=== PATIENT | male | born 1980 | race Caucasian/White ===

== ENCOUNTER 2018-01-25 10:35 | Emergency (ER) | payer MEDICAID ==
[~2018-01-25] VITALS: Ht 188 cm; Wt 122.7 kg
[~2018-01-25 10:35] MED LIST: AMIT-189 PO; BISM-64 PO; COROTSUS OT; DICY10CA88 PO; DIPH-186 PO; FLUT16SP10; METO-292 PO; METO5TAB98 PO; OMEP20TA5 PO; ONDA4TAB12 PO; ONDA4TAB6 PO; ONDA4TAB9 PO; ONDA8TAB6 PO; ONDA8TAB9 PO; PANT-47 PO; PANT20TA2 PO; POLY119P2 PO; POLY255P2 PO; SUCR1ORA2 PO
[2018-01-25] MEDS ORDERED: diphenhydrAMINE 50 mg/ml inj IV ONE (11:40)
[2018-01-25] MEDS ORDERED: ketorolac trometh. 30mg/ml inj. IV ONE (11:40)
[2018-01-25] MEDS ORDERED: ondansetron/PF 4mg/2ml inj IV ONE (11:40)
[2018-01-25] MEDS ORDERED: normal saline 1000ML IV soln IVB ONE (11:40)
[2018-01-25] MEDS ORDERED: haloperidol lactate 5mg/ml inj IM ONE (11:40)
[2018-01-25 12:04] LABS: CLARITY,URINE CLEAR (Clear); COLOR,URINE YELLOW (Yellow); GLUCOSE, URINE NEGATIVE (Neg); KETONES,URINE NEGATIVE (Neg); LEUKOCYTE ESTERASE ,URINE NEGATIVE (Neg); NITRITES, URINE NEGATIVE (Neg); OCCULT BLOOD,URINE NEGATIVE (Neg); PROTEIN,URINE NEGATIVE (Neg); UROBILINOGEN,URINE 0.2 E.U/dL (0.2-1.0)
[2018-01-25 12:07] LABS: UA COLLECTION TYPE CLN CATCH MIDSTREAM
[2018-01-25 12:08] LABS: BASOPHILS % (AUTO) 0.3 % (0-1); EOSINOPHILS # (AUTO) 0.2 X10'3 (0-0.9); EOSINOPHILS % (AUTO) 1.5 % (0-6); HEMATOCRIT 47.1 % (42.0-52.0); HEMOGLOBIN 16.3 g/dl (14.0-17.9); LYMPHOCYTES % (AUTO) 8.8 % (21-51); MEAN CORPUSCULAR HGB CONC 34.5 % (33.0-36.5); MEAN CORPUSCULAR VOLUME 89.8 FL (78-98); MEAN PLATELET VOLUME 9.7 FL (7.4-10.4); MONOCYTES # (AUTO) 0.4 X10'3 (0-0.9); MONOCYTES % (AUTO) 3.2 % (2-12); NEUTROPHILS % (AUTO) 86.2 % (42-75); PLATELET COUNT 209 X10'3 (140-440); RED BLOOD COUNT 5.25 X10'6 (4.70-6.10); RED CELL DISTRIBUTION WIDTH 12.6 % (11.5-14.5); WHITE BLOOD COUNT 11.6 X10'3 (4.5-11.0)
[2018-01-25 12:41] LABS: ALANINE AMINOTRANSFERASE 24 U/L (12-78); ALBUMIN 4.3 G/DL (3.4-5.0); ALBUMIN/GLOBULIN RATIO 1.3 (1.1-1.5); ALKALINE PHOSPHATASE 68 IU/L (46-116); ANION GAP 14 (8-16); ASPARTATE AMINO TRANSFERASE 12 U/L (10-37); BILIRUBIN,TOTAL 0.4 MG/DL (0.1-1.0); BLOOD UREA NITROGEN 10 MG/DL (7-18); BUN/CREATININE RATIO 9.1 (5.4-32.0); CALCIUM 8.8 MG/DL (8.5-10.1); CHLORIDE 106 MMOL/L (99-107); GLUCOSE 128 MG/DL (70-104); LIPASE 757 U/L (73-393); SODIUM 141 MMOL/L (135-145); TOTAL CARBON DIOXIDE 21.5 MMOL/L (24-32); TOTAL PROTEIN 7.5 G/DL (6.4-8.2); eGFR 75 ML/MIN
[2018-01-25 12:47] LABS: POTASSIUM 3.9 MMOL/L (3.5-5.1)
[2018-01-25 12:50] LABS: PROTHROMBIN TIME 10.3 SECONDS (9.0-12.0)
[2018-01-25] MEDS ORDERED: ONDA8TAB9 PO (12:52)
[2018-01-25] MEDS ORDERED: morphine 4 MG/ML inj SYRINge IV ONE (12:55)
[2018-01-25 13:31] VITALS: BP 131/69
[2018-01-29] MEDS ORDERED: MELO-100 PO (13:39)
== END 2018-01-25 13:34 | disposition home or self-care (01) ==
LOC: ER 10:35
DX: R11.2 Nausea with vomiting, unspecified (principal); R19.7 Diarrhea, unspecified; R10.84 Generalized abdominal pain; E78.00 Pure hypercholesterolemia, unspecified; K21.9 Gastro-esophageal reflux disease without esophagitis; G89.29 Other chronic pain; F12.90 Cannabis use, unspecified, uncomplicated; Z56.0 Unemployment, unspecified; Z88.8 Allergy status to other drugs, medicaments and biological substances
CPT/HCPCS: 36415; 80053; 81003; 83690; 85025; 85610; 93005; 96361; 96374; 96375; 99285; J1200; J1885; J2270; J2405; J1630

== ENCOUNTER 2018-07-07 06:07 | Emergency (ER) | payer MEDICAID ==
[~2018-07-07] VITALS: Ht 188 cm; Wt 93.5 kg
[~2018-07-07 06:07] MED LIST changes: +MELO-100 PO; +POLY255P19 PO; -POLY255P2 PO
[2018-07-07] MEDS ORDERED: amoxicillin 250mg capsule PO ONE (06:50)
[2018-07-07] MEDS ORDERED: ketorolac trometh inj. 60 MG/2 ML VIAL IM ONE (06:50)
[2018-07-07] MEDS ORDERED: AMOX-101 PO (07:11)
[2018-07-07 07:17] VITALS: BP 136/65
== END 2018-07-07 07:20 | disposition home or self-care (01) ==
LOC: ER 06:07
DX: K02.9 Dental caries, unspecified (principal); E78.00 Pure hypercholesterolemia, unspecified; K21.9 Gastro-esophageal reflux disease without esophagitis; G89.29 Other chronic pain; F12.90 Cannabis use, unspecified, uncomplicated; Z98.890 Other specified postprocedural states; Z56.0 Unemployment, unspecified; Z88.0 Allergy status to penicillin; Z88.8 Allergy status to other drugs, medicaments and biological substances; Z79.899 Other long term (current) drug therapy
CPT/HCPCS: 96372; 99283; J1885

== ENCOUNTER 2018-08-05 08:39 | Emergency (ER) | payer MEDICAID ==
[~2018-08-05] VITALS: Ht 188 cm; Wt 77.3 kg
[~2018-08-05 08:39] MED LIST changes: +AMOX-101 PO
[2018-08-05] MEDS ORDERED: ketorolac tromethamine 15mg/ml inj. IV ONE (08:55)
[2018-08-05] MEDS ORDERED: metoclopramide 5 mg/ml inj IV ONE (08:55)
[2018-08-05] MEDS ORDERED: normal saline 1000ML IV soln IVB ONE ×2 (08:55)
[2018-08-05] MEDS ORDERED: diphenhydrAMINE 50 mg/ml inj IV ONE (08:55)
[2018-08-05] MEDS ORDERED: LORazepam 2 mg/ml vial IV ONE (08:55)
[2018-08-05 09:18] LABS: BASOPHILS % (AUTO) 0.3 % (0-1); EOSINOPHILS # (AUTO) 0.2 X10'3 (0-0.9); EOSINOPHILS % (AUTO) 2.6 % (0-6); HEMATOCRIT 49.5 % (42.0-52.0); HEMOGLOBIN 17.1 g/dl (14.0-17.9); LYMPHOCYTES # (AUTO) 1.9 X10'3 (1.1-4.8); LYMPHOCYTES % (AUTO) 30.2 % (21-51); MEAN CORPUSCULAR HEMOGLOBIN 30.9 PG (27.0-31.0); MEAN CORPUSCULAR HGB CONC 34.6 g/dL (33.0-36.5); MEAN CORPUSCULAR VOLUME 89.3 FL (78-98); MEAN PLATELET VOLUME 9.3 FL (7.4-10.4); MONOCYTES # (AUTO) 0.5 X10'3 (0-0.9); MONOCYTES % (AUTO) 7.1 % (2-12); NEUTROPHILS # (AUTO) 3.8 X10'3 (1.8-7.7); NEUTROPHILS % (AUTO) 59.8 % (42-75); PLATELET COUNT 184 X10'3 (140-440); RED BLOOD COUNT 5.54 X10'6 (4.70-6.10); WHITE BLOOD COUNT 6.3 X10'3 (4.5-11.0)
[2018-08-05] MEDS: HYDROmorphone inj. 0.5 MG/0.5 ML DISP.SYRIN IV PRN ×3 (09:18→10:04)
[2018-08-05 09:27] LABS: ALANINE AMINOTRANSFERASE 25 U/L (12-78); ALBUMIN 4.4 G/DL (3.4-5.0); ALBUMIN/GLOBULIN RATIO 1.2 (1.1-1.5); ALKALINE PHOSPHATASE 76 IU/L (46-116); ANION GAP 11 (8-16); ASPARTATE AMINO TRANSFERASE 16 U/L (10-37); BILIRUBIN,TOTAL 0.7 MG/DL (0.1-1.0); BLOOD UREA NITROGEN 15 MG/DL (7-18); CHLORIDE 103 MMOL/L (99-107); CREATININE 1.07 MG/DL (0.60-1.10); GLUCOSE 104 MG/DL (70-104); LIPASE 410 U/L (73-393); SODIUM 138 MMOL/L (135-145); TOTAL CARBON DIOXIDE 23.6 MMOL/L (24-32); eGFR 77 ML/MIN
[2018-08-05] MEDS ORDERED: ONDA4TAB12 PO (09:43)
[2018-08-05 10:31] LABS: CLARITY,URINE CLEAR (Clear); COLOR,URINE YELLOW (Yellow); GLUCOSE, URINE NEGATIVE (Neg); KETONES,URINE NEGATIVE (Neg); LEUKOCYTE ESTERASE ,URINE NEGATIVE (Neg); NITRITES, URINE NEGATIVE (Neg); OCCULT BLOOD,URINE NEGATIVE (Neg); PROTEIN,URINE NEGATIVE (Neg)
[2018-08-05 10:34] LABS: UA COLLECTION TYPE URINAL
[2018-08-05 10:38] VITALS: BP 146/79
--- NOTE | 2018-08-05 13:45 | NUR ---
NOTED THAT EMAR APPLICATION DOES NOT HAVE A "uNDO" OPTION FOR THIS NURSE AND ONLY 2 DOSES OF DILAUDID WERE GIVEN BUT RECORD SHOWS 3 WERE GIVEN, ALTERNATE NURSE AUDREY Aguilar RN AT MY SIDE TO VERIFY AND PHARMACY CALLED WHO FOUND THE EMAR ERROR AND TODD IN PHARMACY WAS TO CORRECT THE DOSING ON THE EMAR AND TRANSFERRED TO IT WHO WAS TO CORRECT THE EMAR APPLICATION. ALSO NOTED THAT HAD A BLACK EYE AND OLD LACERATION/SCAR ON LIP SO PULLED HER INTO A ROOM ALONE WITH HER 1 YEAR OLD AND ASKED HER WHERE THE EYE AND LIP INJURY CAME FROM AND SHE STATED THAT THEY HAD TO MOVE AND A BOX WAS DROPPED ON HER EYE, STATED THIS TWICE, AND I ASKED HER MULTIPLE TIMES IF SHE FELT SAFE AT [facility] AND SHE SAID SHE FELT SAFE AT HOME AND THAT HER AND HER HAD 5 CHILDREN. CHARGE NURSE/AUDREY JULIAN
== END 2018-08-05 10:40 | disposition home or self-care (01) ==
LOC: ER 08:40
DX: R10.13 Epigastric pain (principal); N50.89 Other specified disorders of the male genital organs; R11.10 Vomiting, unspecified; R19.7 Diarrhea, unspecified; E78.00 Pure hypercholesterolemia, unspecified; K21.9 Gastro-esophageal reflux disease without esophagitis; G89.29 Other chronic pain; F12.90 Cannabis use, unspecified, uncomplicated; Z88.6 Allergy status to analgesic agent; Z88.8 Allergy status to other drugs, medicaments and biological substances; Z79.899 Other long term (current) drug therapy; Z56.0 Unemployment, unspecified
CPT/HCPCS: 36415; 76870; 80053; 81003; 83690; 85025; 85610; 96361; 96374; 96375; 96376; 99284; J1170; J1200; J1885; J2060; J2765; J7030

== ENCOUNTER 2019-04-01 03:05 | Emergency (ER) | payer MEDICAID ==
[~2019-04-01] VITALS: Ht 188 cm; Wt 118.2 kg
[~2019-04-01 03:05] MED LIST changes: -AMOX-101 PO
[2019-04-01] MEDS ORDERED: ketorolac trometh. 30mg/ml inj. IV ONE (03:10)
[2019-04-01] MEDS ORDERED: ondansetron/PF 4mg/2ml inj IV ONE (03:10)
[2019-04-01] MEDS ORDERED: normal saline 1000ML IV soln IVB ONE (03:10)
[2019-04-01] MEDS: morphine 4 MG/ML inj SYRINge IV PRN ×3 (03:23→05:02)
[2019-04-01 03:33] LABS: CLARITY,URINE CLEAR (Clear); COLOR,URINE YELLOW (Yellow); GLUCOSE, URINE NEGATIVE (Neg); KETONES,URINE NEGATIVE (Neg); LEUKOCYTE ESTERASE ,URINE NEGATIVE (Neg); NITRITES, URINE NEGATIVE (Neg); OCCULT BLOOD,URINE NEGATIVE (Neg); PH,URINE 6.5 (4.8-8.0); PROTEIN,URINE NEGATIVE (Neg); UA COLLECTION TYPE VOIDED; UROBILINOGEN,URINE 0.2 E.U/dL (0.2-1.0)
[2019-04-01 03:43] LABS: ALANINE AMINOTRANSFERASE 34 U/L (12-78); ALBUMIN 4.3 G/DL (3.4-5.0); ALBUMIN/GLOBULIN RATIO 1.3 (1.1-1.5); ALKALINE PHOSPHATASE 70 IU/L (46-116); ANION GAP 10 (8-16); ASPARTATE AMINO TRANSFERASE 18 U/L (10-37); BILIRUBIN,TOTAL 0.5 MG/DL (0.1-1.0); BLOOD UREA NITROGEN 11 MG/DL (7-18); BUN/CREATININE RATIO 10.6 (5.4-32.0); CALCIUM 8.8 MG/DL (8.5-10.1); CHLORIDE 107 MMOL/L (99-107); CREATININE 1.04 MG/DL (0.60-1.10); GLUCOSE 119 MG/DL (70-104); LIPASE 224 U/L (73-393); POTASSIUM 4.1 MMOL/L (3.5-5.1); SODIUM 142 MMOL/L (135-145); TOTAL CARBON DIOXIDE 24.6 MMOL/L (24-32); TOTAL PROTEIN 7.7 G/DL (6.4-8.2); eGFR 79 ML/MIN
[2019-04-01 03:46] LABS: BASOPHILS # (AUTO) 0.1 X10'3 (0-0.2); BASOPHILS % (AUTO) 0.8 % (0-1); EOSINOPHILS # (AUTO) 0.3 X10'3 (0-0.9); EOSINOPHILS % (AUTO) 2.8 % (0-6); HEMATOCRIT 47.5 % (42.0-52.0); HEMOGLOBIN 16.8 g/dl (14.0-17.9); LYMPHOCYTES # (AUTO) 1.9 X10'3 (1.1-4.8); LYMPHOCYTES % (AUTO) 21.2 % (21-51); MEAN CORPUSCULAR HEMOGLOBIN 31.1 PG (27.0-31.0); MEAN CORPUSCULAR HGB CONC 35.3 g/dL (33.0-36.5); MEAN CORPUSCULAR VOLUME 88.1 FL (78-98); MEAN PLATELET VOLUME 9.8 FL (7.4-10.4); MONOCYTES # (AUTO) 0.5 X10'3 (0-0.9); MONOCYTES % (AUTO) 5.8 % (2-12); NEUTROPHILS # (AUTO) 6.2 X10'3 (1.8-7.7); NEUTROPHILS % (AUTO) 69.4 % (42-75); PLATELET COUNT 199 X10'3 (140-440); RED BLOOD COUNT 5.39 X10'6 (4.70-6.10); RED CELL DISTRIBUTION WIDTH 13.4 % (11.5-14.5)
[2019-04-01] MEDS ORDERED: mag hydrox/Alum hydrox/simeth 30ml oral suspension PO ONE (04:50)
[2019-04-01] MEDS ORDERED: sucralfate 1gm/10ml UD suspension PO STA (04:50)
[2019-04-01] MEDS ORDERED: LIDOcaine Viscous 15ml cup MM ONE (04:50)
[2019-04-01 05:11] VITALS: BP 151/100
== END 2019-04-01 05:12 | disposition home or self-care (01) ==
LOC: ER 03:06
DX: R10.9 Unspecified abdominal pain (principal); R11.2 Nausea with vomiting, unspecified; R19.7 Diarrhea, unspecified; E78.00 Pure hypercholesterolemia, unspecified; K21.9 Gastro-esophageal reflux disease without esophagitis; G89.29 Other chronic pain; F12.90 Cannabis use, unspecified, uncomplicated; Z56.0 Unemployment, unspecified; Z88.6 Allergy status to analgesic agent; Z79.899 Other long term (current) drug therapy; Z88.8 Allergy status to other drugs, medicaments and biological substances
CPT/HCPCS: 36415; 80053; 81003; 83690; 85025; 96361; 96374; 96375; 96376; 99283; J1885; J2270; J2405; J7030

== ENCOUNTER 2019-04-25 10:44 | Emergency (ER) | payer MEDICAID ==
[~2019-04-25] VITALS: Ht 188 cm; Wt 126.5 kg
[2019-04-25 11:25] LABS: BASOPHILS # (AUTO) 0.1 X10'3 (0-0.2); BASOPHILS % (AUTO) 0.6 % (0-1); EOSINOPHILS # (AUTO) 0.2 X10'3 (0-0.9); EOSINOPHILS % (AUTO) 2.1 % (0-6); HEMATOCRIT 47.9 % (42.0-52.0); HEMOGLOBIN 16.9 g/dl (14.0-17.9); LYMPHOCYTES # (AUTO) 1.8 X10'3 (1.1-4.8); LYMPHOCYTES % (AUTO) 18.2 % (21-51); MEAN CORPUSCULAR HGB CONC 35.2 g/dL (33.0-36.5); MEAN CORPUSCULAR VOLUME 88.1 FL (78-98); MEAN PLATELET VOLUME 8.8 FL (7.4-10.4); MONOCYTES # (AUTO) 0.5 X10'3 (0-0.9); MONOCYTES % (AUTO) 5.4 % (2-12); NEUTROPHILS # (AUTO) 7.2 X10'3 (1.8-7.7); NEUTROPHILS % (AUTO) 73.7 % (42-75); PLATELET COUNT 225 X10'3 (140-440); RED BLOOD COUNT 5.44 X10'6 (4.70-6.10); RED CELL DISTRIBUTION WIDTH 13.7 % (11.5-14.5); WHITE BLOOD COUNT 9.8 X10'3 (4.5-11.0)
[2019-04-25 11:29] LABS: CLARITY,URINE CLEAR (Clear); COLOR,URINE YELLOW (Yellow); GLUCOSE, URINE NEGATIVE (Neg); KETONES,URINE NEGATIVE (Neg); LEUKOCYTE ESTERASE ,URINE NEGATIVE (Neg); NITRITES, URINE NEGATIVE (Neg); OCCULT BLOOD,URINE NEGATIVE (Neg); PROTEIN,URINE NEGATIVE (Neg); UROBILINOGEN,URINE 0.2 E.U/dL (0.2-1.0)
[2019-04-25 11:31] LABS: UA COLLECTION TYPE CLN CATCH MIDSTREAM
[2019-04-25 11:39] LABS: ALANINE AMINOTRANSFERASE 17 U/L (12-78); ALBUMIN 4.4 G/DL (3.4-5.0); ALBUMIN/GLOBULIN RATIO 1.3 (1.1-1.5); ALKALINE PHOSPHATASE 70 IU/L (46-116); AMYLASE 20 U/L (25-115); ANION GAP 10 (8-16); ASPARTATE AMINO TRANSFERASE 11 U/L (10-37); BILIRUBIN,TOTAL 0.4 MG/DL (0.1-1.0); BLOOD UREA NITROGEN 14 MG/DL (7-18); BUN/CREATININE RATIO 12.3 (5.4-32.0); CALCIUM 9.3 MG/DL (8.5-10.1); CHLORIDE 105 MMOL/L (99-107); CREATININE 1.14 MG/DL (0.60-1.10); GLUCOSE 116 MG/DL (70-104); LIPASE 288 U/L (73-393); POTASSIUM 4.1 MMOL/L (3.5-5.1); SODIUM 140 MMOL/L (135-145); TOTAL CARBON DIOXIDE 24.7 MMOL/L (24-32); TOTAL PROTEIN 7.8 G/DL (6.4-8.2); eGFR 71 ML/MIN
[2019-04-25] MEDS ORDERED: normal saline 1000ML IV soln IVB ONE (11:45)
[2019-04-25] MEDS ORDERED: famotidine/PF 10 mg/ml inj IV ONE (11:45)
[2019-04-25] MEDS ORDERED: pantoprazole 40 MG vial IV ONE (11:45)
[2019-04-25] MEDS ORDERED: ondansetron/PF 4mg/2ml inj IV ONE ×2 (11:45→14:20)
[2019-04-25] MEDS: morphine 4 MG/ML inj SYRINge IV PRN ×3 (12:19→14:46)
--- NOTE | 2019-04-25 12:38 | NUR ---
Patient to CT
--- NOTE | 2019-04-25 13:49 | NUR ---
Discussed pt's c/o pain w/ mary mujica; no new orders received @ this time.
[2019-04-25] MEDS ORDERED: ONDA4TAB6 PO (14:16)
[2019-04-25] MEDS ORDERED: HYDR-3965 PO (14:16)
[2019-04-25] MEDS ORDERED: morphine 4 MG/ML inj SYRINge IV ONE (14:20)
[2019-04-25 15:15] VITALS: BP 136/103
== END 2019-04-25 15:14 | disposition home or self-care (01) ==
LOC: ER 10:44
DX: D35.02 Benign neoplasm of left adrenal gland (principal); R10.31 Right lower quadrant pain; R10.32 Left lower quadrant pain; E78.00 Pure hypercholesterolemia, unspecified; K21.9 Gastro-esophageal reflux disease without esophagitis; G89.29 Other chronic pain; F12.90 Cannabis use, unspecified, uncomplicated; Z56.0 Unemployment, unspecified; Z88.6 Allergy status to analgesic agent; Z88.8 Allergy status to other drugs, medicaments and biological substances; Z79.899 Other long term (current) drug therapy
CPT/HCPCS: 36415; 74176; 80053; 81003; 82150; 83605; 83690; 85025; 96374; 96375; 96376; 99284; C9113; J2270; J2405; J3490; J7030

== ENCOUNTER 2019-05-04 15:55 | Emergency (ER) | payer MEDICAID ==
[~2019-05-04] VITALS: Ht 188 cm; Wt 124.0 kg
[~2019-05-04 15:55] MED LIST changes: -AMIT-189 PO; +HYDR-3965 PO
[2019-05-04] MEDS ORDERED: metoclopramide 5 mg/ml inj IV ONE (17:00)
[2019-05-04] MEDS ORDERED: normal saline 1000ML IV soln IVB ONE ×2 (17:00)
[2019-05-04] MEDS ORDERED: LORazepam 2 mg/ml vial IV ONE (17:00)
[2019-05-04] MEDS ORDERED: pantoprazole 40 MG vial IV ONE (17:00)
[2019-05-04 17:24] LABS: BASOPHILS % (AUTO) 0.3 % (0-1); EOSINOPHILS # (AUTO) 0.1 X10'3 (0-0.9); EOSINOPHILS % (AUTO) 0.7 % (0-6); HEMATOCRIT 50.6 % (42.0-52.0); HEMOGLOBIN 17.5 g/dl (14.0-17.9); LYMPHOCYTES # (AUTO) 1.3 X10'3 (1.1-4.8); LYMPHOCYTES % (AUTO) 9.7 % (21-51); MEAN CORPUSCULAR HEMOGLOBIN 30.5 PG (27.0-31.0); MEAN CORPUSCULAR HGB CONC 34.7 g/dL (33.0-36.5); MEAN CORPUSCULAR VOLUME 87.9 FL (78-98); MEAN PLATELET VOLUME 10.2 FL (7.4-10.4); MONOCYTES # (AUTO) 0.6 X10'3 (0-0.9); MONOCYTES % (AUTO) 4.3 % (2-12); NEUTROPHILS # (AUTO) 11.6 X10'3 (1.8-7.7); PLATELET COUNT 227 X10'3 (140-440); RED BLOOD COUNT 5.76 X10'6 (4.70-6.10); RED CELL DISTRIBUTION WIDTH 13.7 % (11.5-14.5); WHITE BLOOD COUNT 13.6 X10'3 (4.5-11.0)
[2019-05-04 17:32] LABS: ALANINE AMINOTRANSFERASE 32 U/L (12-78); ALBUMIN 4.7 G/DL (3.4-5.0); ALBUMIN/GLOBULIN RATIO 1.4 (1.1-1.5); ALKALINE PHOSPHATASE 64 IU/L (46-116); ANION GAP 11 (8-16); ASPARTATE AMINO TRANSFERASE 19 U/L (10-37); BILIRUBIN,TOTAL 0.7 MG/DL (0.1-1.0); BLOOD UREA NITROGEN 14 MG/DL (7-18); CHLORIDE 104 MMOL/L (99-107); CREATININE 1.08 MG/DL (0.60-1.10); GLUCOSE 115 MG/DL (70-104); LIPASE 398 U/L (73-393); POTASSIUM 4.1 MMOL/L (3.5-5.1); SODIUM 139 MMOL/L (135-145); TOTAL CARBON DIOXIDE 23.6 MMOL/L (24-32); eGFR 75 ML/MIN
[2019-05-04] MEDS ORDERED: morphine 4 MG/ML inj SYRINge IV ONE (18:40)
[2019-05-04] MEDS ORDERED: METO-292 PO (18:42)
[2019-05-04] MEDS ORDERED: HYDR-3965 PO (18:42)
[2019-05-04 19:16] VITALS: BP 124/63
== END 2019-05-04 19:12 | disposition home or self-care (01) ==
LOC: ER 15:55
DX: K85.90 Acute pancreatitis without necrosis or infection, unspecified (principal); R11.2 Nausea with vomiting, unspecified; R10.13 Epigastric pain; E78.00 Pure hypercholesterolemia, unspecified; K21.9 Gastro-esophageal reflux disease without esophagitis; G89.29 Other chronic pain; F12.90 Cannabis use, unspecified, uncomplicated; Z56.0 Unemployment, unspecified; Z88.6 Allergy status to analgesic agent; Z88.8 Allergy status to other drugs, medicaments and biological substances; Z79.899 Other long term (current) drug therapy
CPT/HCPCS: 36415; 80053; 83690; 85025; 96361; 96374; 96375; 99284; C9113; J2060; J2270; J7030

== ENCOUNTER 2019-05-21 08:15 | Emergency (ER) | payer MEDICAID ==
[~2019-05-21] VITALS: Ht 188 cm; Wt 122.7 kg
[2019-05-21] MEDS ORDERED: normal saline 1000ML IV soln IVB ONE (08:45)
[2019-05-21] MEDS ORDERED: insulin regular, human 10 units/0.1 ml syringe SQ ONE (08:45)
[2019-05-21] MEDS ORDERED: insulin regular, human U-100 3ml vial - multi-dose SQ ONE (08:50)
[2019-05-21] MEDS ORDERED: pantoprazole 40 MG vial IV ONE (09:15)
[2019-05-21] MEDS ORDERED: morphine 4 MG/ML inj SYRINge IV ONE (09:15)
[2019-05-21] MEDS ORDERED: famotidine/PF 10 mg/ml inj IV ONE (09:15)
[2019-05-21] MEDS ORDERED: ondansetron/PF 4mg/2ml inj IV ONE (09:15)
[2019-05-21 09:28] LABS: CLARITY,URINE CLEAR (Clear); COLOR,URINE YELLOW (Yellow); GLUCOSE, URINE NEGATIVE (Neg); KETONES,URINE NEGATIVE (Neg); LEUKOCYTE ESTERASE ,URINE NEGATIVE (Neg); NITRITES, URINE NEGATIVE (Neg); OCCULT BLOOD,URINE NEGATIVE (Neg); PH,URINE 6.5 (4.8-8.0); PROTEIN,URINE NEGATIVE (Neg); UROBILINOGEN,URINE 0.2 E.U/dL (0.2-1.0)
[2019-05-21 09:29] LABS: BASOPHILS % (AUTO) 0.3 % (0-1); EOSINOPHILS % (AUTO) 0.4 % (0-6); HEMATOCRIT 45.5 % (42.0-52.0); HEMOGLOBIN 16.1 g/dl (14.0-17.9); LYMPHOCYTES # (AUTO) 1.2 X10'3 (1.1-4.8); MEAN CORPUSCULAR HEMOGLOBIN 30.9 PG (27.0-31.0); MEAN CORPUSCULAR HGB CONC 35.3 g/dL (33.0-36.5); MEAN CORPUSCULAR VOLUME 87.5 FL (78-98); MEAN PLATELET VOLUME 9.3 FL (7.4-10.4); MONOCYTES # (AUTO) 0.4 X10'3 (0-0.9); NEUTROPHILS # (AUTO) 8.3 X10'3 (1.8-7.7); NEUTROPHILS % (AUTO) 83.3 % (42-75); PLATELET COUNT 193 X10'3 (140-440); RED CELL DISTRIBUTION WIDTH 13.6 % (11.5-14.5)
[2019-05-21 09:32] LABS: UA COLLECTION TYPE URINAL
[2019-05-21 09:47] LABS: ALANINE AMINOTRANSFERASE 23 U/L (12-78); ALBUMIN/GLOBULIN RATIO 1.3 (1.1-1.5); ALKALINE PHOSPHATASE 57 IU/L (46-116); ANION GAP 9 (8-16); ASPARTATE AMINO TRANSFERASE 15 U/L (10-37); BILIRUBIN,TOTAL 0.5 MG/DL (0.1-1.0); BLOOD UREA NITROGEN 11 MG/DL (7-18); BUN/CREATININE RATIO 11.6 (5.4-32.0); CALCIUM 8.6 MG/DL (8.5-10.1); CHLORIDE 109 MMOL/L (99-107); CREATININE 0.95 MG/DL (0.60-1.10); GLUCOSE 108 MG/DL (70-104); LIPASE 216 U/L (73-393); POTASSIUM 3.8 MMOL/L (3.5-5.1); SODIUM 140 MMOL/L (135-145); TOTAL PROTEIN 7.2 G/DL (6.4-8.2); eGFR 87 ML/MIN
--- NOTE | 2019-05-21 10:03 | NUR ---
BREAKING PRIMARY RN, LAB AND ANOTHER RN AT BEDSIDE, STARTING A LINE AND COLLECTING LABS
[2019-05-21] MEDS ORDERED: HYDROcodone/acetaminophen 5mg/325mg tablet PO ONE (10:10)
[2019-05-21 10:31] VITALS: BP 119/60
== END 2019-05-21 10:48 | disposition home or self-care (01) ==
LOC: ER 08:15
DX: R10.12 Left upper quadrant pain (principal); R10.32 Left lower quadrant pain; R11.2 Nausea with vomiting, unspecified; R19.7 Diarrhea, unspecified; E78.00 Pure hypercholesterolemia, unspecified; K21.9 Gastro-esophageal reflux disease without esophagitis; G89.29 Other chronic pain; F41.9 Anxiety disorder, unspecified; F12.90 Cannabis use, unspecified, uncomplicated; Z98.890 Other specified postprocedural states; Z56.0 Unemployment, unspecified; Z88.5 Allergy status to narcotic agent; Z88.8 Allergy status to other drugs, medicaments and biological substances; Z79.899 Other long term (current) drug therapy
CPT/HCPCS: 36415; 80053; 81003; 83690; 85025; 96361; 96374; 96375; 99284; C9113; J2270; J2405; J3490; J7030; J1815

== ENCOUNTER 2019-05-25 11:04 | Emergency (ER) | payer MEDICAID ==
[~2019-05-25] VITALS: Ht 188 cm; Wt 124.0 kg
[2019-05-25 11:37] LABS: BASOPHILS % (AUTO) 0.3 % (0-1); EOSINOPHILS % (AUTO) 0.3 % (0-6); HEMATOCRIT 47.6 % (42.0-52.0); HEMOGLOBIN 16.6 g/dl (14.0-17.9); LYMPHOCYTES % (AUTO) 10.3 % (21-51); MEAN CORPUSCULAR HEMOGLOBIN 30.9 PG (27.0-31.0); MEAN CORPUSCULAR VOLUME 88.5 FL (78-98); MEAN PLATELET VOLUME 9.1 FL (7.4-10.4); MONOCYTES # (AUTO) 0.4 X10'3 (0-0.9); NEUTROPHILS # (AUTO) 8.5 X10'3 (1.8-7.7); NEUTROPHILS % (AUTO) 85.1 % (42-75); PLATELET COUNT 216 X10'3 (140-440); RED BLOOD COUNT 5.38 X10'6 (4.70-6.10); RED CELL DISTRIBUTION WIDTH 13.4 % (11.5-14.5)
[2019-05-25 11:52] LABS: ALANINE AMINOTRANSFERASE 25 U/L (12-78); ALBUMIN 4.5 G/DL (3.4-5.0); ALBUMIN/GLOBULIN RATIO 1.4 (1.1-1.5); ALKALINE PHOSPHATASE 66 IU/L (46-116); AMYLASE 18 U/L (25-115); ANION GAP 12 (8-16); ASPARTATE AMINO TRANSFERASE 16 U/L (10-37); BILIRUBIN,TOTAL 0.5 MG/DL (0.1-1.0); BLOOD UREA NITROGEN 9 MG/DL (7-18); BUN/CREATININE RATIO 8.7 (5.4-32.0); CALCIUM 8.7 MG/DL (8.5-10.1); CHLORIDE 107 MMOL/L (99-107); CREATININE 1.04 MG/DL (0.60-1.10); GLUCOSE 117 MG/DL (70-104); LIPASE 229 U/L (73-393); SODIUM 141 MMOL/L (135-145); TOTAL CARBON DIOXIDE 21.8 MMOL/L (24-32); TOTAL PROTEIN 7.8 G/DL (6.4-8.2); eGFR 79 ML/MIN
[2019-05-25] MEDS ORDERED: haloperidol lactate 5mg/ml inj IM ONE (12:20)
[2019-05-25] MEDS ORDERED: famotidine/PF 10 mg/ml inj IV ONE (12:20)
[2019-05-25] MEDS ORDERED: normal saline 1000ML IV soln IVB ONE (12:20)
[2019-05-25] MEDS ORDERED: LORazepam 2 mg/ml vial IV ONE (12:20)
[2019-05-25] MEDS ORDERED: ketorolac trometh. 30mg/ml inj. IV ONE (12:20)
[2019-05-25 12:47] LABS: CLARITY,URINE CLEAR (Clear); COLOR,URINE YELLOW (Yellow); GLUCOSE, URINE NEGATIVE (Neg); KETONES,URINE NEGATIVE (Neg); LEUKOCYTE ESTERASE ,URINE NEGATIVE (Neg); NITRITES, URINE NEGATIVE (Neg); OCCULT BLOOD,URINE NEGATIVE (Neg); PROTEIN,URINE NEGATIVE (Neg); UA COLLECTION TYPE CLN CATCH MIDSTREAM; UROBILINOGEN,URINE 0.2 E.U/dL (0.2-1.0)
[2019-05-25 12:48] LABS: URINE AMPHETAMINE SCREEN NEGATIVE (Neg); URINE BARBITUATE SCREEN NEGATIVE (Neg); URINE BENZODIAZEPINES SCREEN NEGATIVE (Neg); URINE CANNABINOID SCREEN POSITIVE (Neg); URINE COCAINE SCREEN NEGATIVE (Neg); URINE METHADONE SCREEN NEGATIVE (Neg); URINE OPIATE SCREEN NEGATIVE (Neg); URINE PHENCYCLIDINE SCREEN NEGATIVE (Neg)
[2019-05-25] MEDS ORDERED: morphine 4 MG/ML inj SYRINge IV ONE (14:05)
[2019-05-25 14:59] VITALS: BP 137/89
== END 2019-05-25 14:50 | disposition home or self-care (01) ==
LOC: ER 11:04
DX: R10.32 Left lower quadrant pain (principal); G89.29 Other chronic pain; R11.2 Nausea with vomiting, unspecified; R06.02 Shortness of breath; E78.00 Pure hypercholesterolemia, unspecified; K21.9 Gastro-esophageal reflux disease without esophagitis; F41.9 Anxiety disorder, unspecified; F12.90 Cannabis use, unspecified, uncomplicated; Z56.0 Unemployment, unspecified; Z88.5 Allergy status to narcotic agent; Z88.8 Allergy status to other drugs, medicaments and biological substances; Z79.2 Long term (current) use of antibiotics; Z79.899 Other long term (current) drug therapy
CPT/HCPCS: 36415; 80053; 80305; 81003; 82150; 83690; 85025; 96361; 96372; 96374; 96375; 99284; J1630; J1885; J2060; J2270; J3490; J7030

== ENCOUNTER 2019-05-27 14:27 | Emergency (ER) | payer MEDICAID ==
[~2019-05-27] VITALS: Ht 188 cm; Wt 122.0 kg
[2019-05-27] MEDS ORDERED: famotidine/PF 10 mg/ml inj IV ONE (15:15)
[2019-05-27] MEDS ORDERED: normal saline 1000ML IV soln IVB ONE (15:15)
[2019-05-27 15:53] LABS: BASOPHILS % (AUTO) 0.1 % (0-1); EOSINOPHILS % (AUTO) 0.1 % (0-6); HEMOGLOBIN 16.4 g/dl (14.0-17.9); LYMPHOCYTES # (AUTO) 0.9 X10'3 (1.1-4.8); LYMPHOCYTES % (AUTO) 7.1 % (21-51); MEAN CORPUSCULAR HEMOGLOBIN 30.8 PG (27.0-31.0); MEAN CORPUSCULAR VOLUME 87.9 FL (78-98); MEAN PLATELET VOLUME 9.2 FL (7.4-10.4); MONOCYTES # (AUTO) 0.4 X10'3 (0-0.9); NEUTROPHILS # (AUTO) 11.3 X10'3 (1.8-7.7); NEUTROPHILS % (AUTO) 89.7 % (42-75); PLATELET COUNT 212 X10'3 (140-440); RED BLOOD COUNT 5.34 X10'6 (4.70-6.10); RED CELL DISTRIBUTION WIDTH 13.7 % (11.5-14.5); WHITE BLOOD COUNT 12.5 X10'3 (4.5-11.0)
[2019-05-27 15:54] LABS: ALANINE AMINOTRANSFERASE 28 U/L (12-78); ALBUMIN 4.6 G/DL (3.4-5.0); ALBUMIN/GLOBULIN RATIO 1.5 (1.1-1.5); ALKALINE PHOSPHATASE 66 IU/L (46-116); ANION GAP 11 (8-16); ASPARTATE AMINO TRANSFERASE 25 U/L (10-37); BILIRUBIN,TOTAL 0.8 MG/DL (0.1-1.0); BLOOD UREA NITROGEN 12 MG/DL (7-18); BUN/CREATININE RATIO 11.3 (5.4-32.0); CALCIUM 8.6 MG/DL (8.5-10.1); CHLORIDE 105 MMOL/L (99-107); CREATININE 1.06 MG/DL (0.60-1.10); GLUCOSE 105 MG/DL (70-104); LIPASE 180 U/L (73-393); POTASSIUM 4.2 MMOL/L (3.5-5.1); SODIUM 140 MMOL/L (135-145); TOTAL CARBON DIOXIDE 24.2 MMOL/L (24-32); TOTAL PROTEIN 7.7 G/DL (6.4-8.2); eGFR 77 ML/MIN
[2019-05-27 16:04] LABS: CLARITY,URINE CLEAR (Clear); COLOR,URINE YELLOW (Yellow); GLUCOSE, URINE NEGATIVE (Neg); KETONES,URINE 15 mg/dl (Neg); LEUKOCYTE ESTERASE ,URINE NEGATIVE (Neg); NITRITES, URINE NEGATIVE (Neg); OCCULT BLOOD,URINE NEGATIVE (Neg); PH,URINE 5.5 (4.8-8.0); PROTEIN,URINE NEGATIVE (Neg); UROBILINOGEN,URINE 0.2 E.U/dL (0.2-1.0)
[2019-05-27 16:05] LABS: UA COLLECTION TYPE VOIDED
[2019-05-27] MEDS ORDERED: ketorolac trometh. 30mg/ml inj. IV ONE (16:25)
[2019-05-27 16:38] LABS: ETHANOL < 0.010 GM/DL (0.0-0.010)
[2019-05-27] MEDS ORDERED: morphine 4 MG/ML inj SYRINge IV ONE (16:40)
[2019-05-27] MEDS ORDERED: iohexol 300mg/ml 100ml inj. ONE (17:01)
[2019-05-27 17:21] VITALS: BP 167/100
[2019-05-27] MEDS ORDERED: NAPR-56 PO (18:02)
== END 2019-05-27 18:11 | disposition home or self-care (01) ==
LOC: ER 14:27
DX: G89.29 Other chronic pain (principal); R10.84 Generalized abdominal pain; R11.2 Nausea with vomiting, unspecified; R19.7 Diarrhea, unspecified; E78.00 Pure hypercholesterolemia, unspecified; K21.9 Gastro-esophageal reflux disease without esophagitis; F41.9 Anxiety disorder, unspecified; F12.90 Cannabis use, unspecified, uncomplicated; Z98.890 Other specified postprocedural states; Z56.0 Unemployment, unspecified; Z88.5 Allergy status to narcotic agent; Z88.8 Allergy status to other drugs, medicaments and biological substances; Z79.2 Long term (current) use of antibiotics; Z79.899 Other long term (current) drug therapy
CPT/HCPCS: 36415; 74177; 80053; 80320; 81003; 83690; 85025; 96361; 96374; 96375; 99285; J1885; J2270; J3490; J7030; Q9967; 99284

== ENCOUNTER 2019-05-29 12:28 | Emergency (ER) | payer MEDICAID ==
[~2019-05-29] VITALS: Ht 188 cm; Wt 122.7 kg
[~2019-05-29 12:28] MED LIST changes: +NAPR-56 PO
[2019-05-29 12:33] VITALS: BP 146/70
[2019-05-29] MEDS ORDERED: acetaminophen 325mg tablet PO ONE (13:05)
[2019-05-29] MEDS ORDERED: ketorolac tromethamine 15mg/ml inj. IM ONE (13:05)
--- NOTE | 2019-05-29 13:19 | NUR ---
PT REFUSED ORDERED PAIN MEDICATIONS. PT STATED HE NEEDS A DRIP FOR THE PAIN. PT THEN REQUESTED TO BE TRANSFERED TO THE OTHER HOSPITAL.
--- NOTE | 2019-05-29 13:25 | NUR ---
PT WALKED OUT THE DOORS STATING HE DOESN'T MEAN TO BE RUDE BUT HIS PAIN NEEDS TAKEN CARE OF. MD AND CHARGE NURSE NOTIFIED.
== END 2019-05-29 13:47 | disposition left against medical advice (07) ==
LOC: ER 12:30
DX: G89.29 Other chronic pain (principal); R10.84 Generalized abdominal pain; R11.2 Nausea with vomiting, unspecified; R19.7 Diarrhea, unspecified; K21.9 Gastro-esophageal reflux disease without esophagitis; E78.00 Pure hypercholesterolemia, unspecified; F41.9 Anxiety disorder, unspecified; F12.90 Cannabis use, unspecified, uncomplicated; Z98.890 Other specified postprocedural states; Z56.0 Unemployment, unspecified; Z88.5 Allergy status to narcotic agent; Z88.8 Allergy status to other drugs, medicaments and biological substances; Z79.2 Long term (current) use of antibiotics; Z79.899 Other long term (current) drug therapy
CPT/HCPCS: 99283

== ENCOUNTER 2019-06-21 18:11 | Emergency (ER) | payer MEDICAID ==
[~2019-06-21] VITALS: Ht 188 cm; Wt 122.7 kg
[~2019-06-21 18:11] MED LIST changes: -HYDR-3965 PO
[2019-06-21 18:12] VITALS: BP 144/100
== END 2019-06-21 19:00 | disposition home or self-care (01) ==
LOC: ER 18:11
DX: J20.9 Acute bronchitis, unspecified (principal); E78.00 Pure hypercholesterolemia, unspecified; K21.9 Gastro-esophageal reflux disease without esophagitis; F41.9 Anxiety disorder, unspecified; G89.29 Other chronic pain; Z87.440 Personal history of urinary (tract) infections; Z56.0 Unemployment, unspecified; Z88.5 Allergy status to narcotic agent; Z88.8 Allergy status to other drugs, medicaments and biological substances; Z79.899 Other long term (current) drug therapy
CPT/HCPCS: 99281

== ENCOUNTER 2019-08-22 12:25 | Emergency (ER) | payer MEDICAID ==
[~2019-08-22] VITALS: Ht 188 cm; Wt 118.2 kg
[~2019-08-22 12:25] MED LIST changes: -NAPR-56 PO
[2019-08-22 12:50] LABS: BASOPHILS % (AUTO) 0.4 % (0-1); EOSINOPHILS # (AUTO) 0.1 X10'3 (0-0.9); EOSINOPHILS % (AUTO) 0.5 % (0-6); HEMATOCRIT 45.9 % (42.0-52.0); LYMPHOCYTES # (AUTO) 0.8 X10'3 (1.1-4.8); LYMPHOCYTES % (AUTO) 6.9 % (21-51); MEAN CORPUSCULAR HEMOGLOBIN 31.4 PG (27.0-31.0); MEAN CORPUSCULAR HGB CONC 34.8 g/dL (33.0-36.5); MEAN CORPUSCULAR VOLUME 90.3 FL (78-98); MEAN PLATELET VOLUME 8.8 FL (7.4-10.4); MONOCYTES # (AUTO) 0.4 X10'3 (0-0.9); MONOCYTES % (AUTO) 3.6 % (2-12); NEUTROPHILS # (AUTO) 10.8 X10'3 (1.8-7.7); NEUTROPHILS % (AUTO) 88.6 % (42-75); PLATELET COUNT 190 X10'3 (140-440); RED BLOOD COUNT 5.08 X10'6 (4.70-6.10); RED CELL DISTRIBUTION WIDTH 13.4 % (11.5-14.5); WHITE BLOOD COUNT 12.2 X10'3 (4.5-11.0)
[2019-08-22] MEDS ORDERED: ondansetron/PF 4mg/2ml inj IV ONE (13:00)
[2019-08-22] MEDS ORDERED: morphine 4 MG/ML inj SYRINge IV PRN (13:00)
[2019-08-22] MEDS ORDERED: normal saline 1000ML IV soln IVB ONE (13:00)
[2019-08-22 13:04] LABS: CLARITY,URINE CLEAR (Clear); COLOR,URINE YELLOW (Yellow); GLUCOSE, URINE NEGATIVE (Neg); KETONES,URINE NEGATIVE (Neg); LEUKOCYTE ESTERASE ,URINE NEGATIVE (Neg); NITRITES, URINE NEGATIVE (Neg); OCCULT BLOOD,URINE NEGATIVE (Neg); PH,URINE 6.5 (4.8-8.0); PROTEIN,URINE NEGATIVE (Neg); UROBILINOGEN,URINE 0.2 E.U/dL (0.2-1.0)
--- NOTE | 2019-08-22 13:05 | NUR ---
Spoke with Dr Wiggins regarding the Morphine order as pt received 10mg of Morphine from EMS. Dr Wiggins said to not give the medication at this time. Let pt know that we are not able to give him any more morphine at this time because he has already had so much.
[2019-08-22 13:08] LABS: UA COLLECTION TYPE VOIDED
[2019-08-22 13:09] LABS: ALANINE AMINOTRANSFERASE 31 U/L (12-78); ALBUMIN/GLOBULIN RATIO 1.3 (1.1-1.5); ALKALINE PHOSPHATASE 69 IU/L (46-116); ANION GAP 8 (8-16); ASPARTATE AMINO TRANSFERASE 16 U/L (10-37); BILIRUBIN,TOTAL 0.5 MG/DL (0.1-1.0); BLOOD UREA NITROGEN 11 MG/DL (7-18); BUN/CREATININE RATIO 10.9 (5.4-32.0); CALCIUM 8.5 MG/DL (8.5-10.1); CHLORIDE 108 MMOL/L (99-107); CREATININE 1.01 MG/DL (0.60-1.10); GLUCOSE 119 MG/DL (70-104); LIPASE 215 U/L (73-393); POTASSIUM 3.9 MMOL/L (3.5-5.1); SODIUM 140 MMOL/L (135-145); TOTAL CARBON DIOXIDE 24.4 MMOL/L (24-32); TOTAL PROTEIN 7.1 G/DL (6.4-8.2); eGFR 81 ML/MIN
[2019-08-22 14:04] VITALS: BP 139/58
== END 2019-08-22 14:02 | disposition home or self-care (01) ==
LOC: ER 12:25
DX: K52.9 Noninfective gastroenteritis and colitis, unspecified (principal); G89.29 Other chronic pain; R10.10 Upper abdominal pain, unspecified; E78.00 Pure hypercholesterolemia, unspecified; K21.9 Gastro-esophageal reflux disease without esophagitis; F41.9 Anxiety disorder, unspecified; F12.90 Cannabis use, unspecified, uncomplicated; Z98.890 Other specified postprocedural states; Z56.0 Unemployment, unspecified; Z88.5 Allergy status to narcotic agent; Z88.8 Allergy status to other drugs, medicaments and biological substances; Z79.2 Long term (current) use of antibiotics; Z79.899 Other long term (current) drug therapy
CPT/HCPCS: 36415; 80053; 81003; 83690; 85025; 96361; 96374; 99283; J2405; J7030

== ENCOUNTER 2019-08-23 11:00 | Emergency (ER) | payer MEDICAID ==
[~2019-08-23] VITALS: Ht 188 cm; Wt 122.7 kg
[2019-08-23] MEDS ORDERED: LORazepam 2 mg/ml vial IV ONE (11:10)
[2019-08-23] MEDS ORDERED: normal saline 1000ML IV soln IVB ONE (11:10)
[2019-08-23] MEDS ORDERED: haloperidol lactate 5mg/ml inj IM ONE (11:10)
[2019-08-23] MEDS ORDERED: famotidine/PF 10 mg/ml inj IV ONE (11:30)
--- NOTE | 2019-08-23 11:31 | NUR ---
US at bedside
[2019-08-23 11:37] LABS: BASOPHILS # (AUTO) 0.1 X10'3 (0-0.2); BASOPHILS % (AUTO) 0.5 % (0-1); EOSINOPHILS # (AUTO) 0.1 X10'3 (0-0.9); EOSINOPHILS % (AUTO) 0.5 % (0-6); HEMATOCRIT 47.4 % (42.0-52.0); HEMOGLOBIN 16.5 g/dl (14.0-17.9); LYMPHOCYTES # (AUTO) 0.9 X10'3 (1.1-4.8); LYMPHOCYTES % (AUTO) 8.4 % (21-51); MEAN CORPUSCULAR HEMOGLOBIN 31.8 PG (27.0-31.0); MEAN CORPUSCULAR HGB CONC 34.9 g/dL (33.0-36.5); MEAN CORPUSCULAR VOLUME 91.3 FL (78-98); MEAN PLATELET VOLUME 9.2 FL (7.4-10.4); MONOCYTES # (AUTO) 0.4 X10'3 (0-0.9); MONOCYTES % (AUTO) 3.9 % (2-12); NEUTROPHILS # (AUTO) 9.5 X10'3 (1.8-7.7); NEUTROPHILS % (AUTO) 86.7 % (42-75); PLATELET COUNT 191 X10'3 (140-440); RED CELL DISTRIBUTION WIDTH 13.2 % (11.5-14.5)
[2019-08-23 11:49] LABS: ALANINE AMINOTRANSFERASE 35 U/L (12-78); ALBUMIN 4.2 G/DL (3.4-5.0); ALBUMIN/GLOBULIN RATIO 1.3 (1.1-1.5); ALKALINE PHOSPHATASE 72 IU/L (46-116); ANION GAP 11 (8-16); ASPARTATE AMINO TRANSFERASE 21 U/L (10-37); BILIRUBIN,TOTAL 0.7 MG/DL (0.1-1.0); BLOOD UREA NITROGEN 12 MG/DL (7-18); BUN/CREATININE RATIO 11.3 (5.4-32.0); CALCIUM 8.6 MG/DL (8.5-10.1); CHLORIDE 105 MMOL/L (99-107); CREATININE 1.06 MG/DL (0.60-1.10); GLUCOSE 123 MG/DL (70-104); LIPASE 197 U/L (73-393); POTASSIUM 3.9 MMOL/L (3.5-5.1); SODIUM 139 MMOL/L (135-145); TOTAL CARBON DIOXIDE 23.1 MMOL/L (24-32); TOTAL PROTEIN 7.5 G/DL (6.4-8.2); eGFR 77 ML/MIN
--- NOTE | 2019-08-23 11:56 | NUR ---
pt states his pain is better. now he is off and on sleeping. able to be woken up by voice.
[2019-08-23 12:28] VITALS: BP 142/82
== END 2019-08-23 12:26 | disposition home or self-care (01) ==
LOC: ER 11:00
DX: R10.13 Epigastric pain (principal); R11.2 Nausea with vomiting, unspecified; R19.7 Diarrhea, unspecified; E78.00 Pure hypercholesterolemia, unspecified; K21.9 Gastro-esophageal reflux disease without esophagitis; G89.29 Other chronic pain; F41.9 Anxiety disorder, unspecified; F12.90 Cannabis use, unspecified, uncomplicated; Z87.440 Personal history of urinary (tract) infections; Z56.0 Unemployment, unspecified; Z88.6 Allergy status to analgesic agent; Z88.8 Allergy status to other drugs, medicaments and biological substances; Z79.2 Long term (current) use of antibiotics; Z79.899 Other long term (current) drug therapy
CPT/HCPCS: 36415; 76700; 80053; 83690; 85025; 96361; 96372; 96374; 96375; 99284; J1630; J2060; J3490; J7030

== ENCOUNTER 2019-08-31 09:03 | Emergency (ER) | payer MEDICAID ==
[~2019-08-31] VITALS: Ht 188 cm; Wt 122.0 kg
[2019-08-31] MEDS ORDERED: haloperidol lactate 5mg/ml inj IM ONE (09:10)
[2019-08-31] MEDS ORDERED: diphenhydrAMINE 50 mg/ml inj IV ONE (09:10)
[2019-08-31] MEDS ORDERED: LORazepam 2 mg/ml vial IV ONE (09:10)
[2019-08-31] MEDS ORDERED: normal saline 1000ML IV soln IVB ONE ×2 (09:10)
--- NOTE | 2019-08-31 09:33 | NUR ---
Pt medicated. Continues to roll around in bed. Lab in at bedside. Bolus infusing.
[2019-08-31 09:42] LABS: BASOPHILS % (AUTO) 0.3 % (0-1); EOSINOPHILS # (AUTO) 0.1 X10'3 (0-0.9); EOSINOPHILS % (AUTO) 0.7 % (0-6); HEMATOCRIT 49.3 % (42.0-52.0); HEMOGLOBIN 17.1 g/dl (14.0-17.9); LYMPHOCYTES # (AUTO) 1.5 X10'3 (1.1-4.8); LYMPHOCYTES % (AUTO) 10.9 % (21-51); MEAN CORPUSCULAR HEMOGLOBIN 31.4 PG (27.0-31.0); MEAN CORPUSCULAR HGB CONC 34.6 g/dL (33.0-36.5); MEAN CORPUSCULAR VOLUME 90.8 FL (78-98); MEAN PLATELET VOLUME 9.6 FL (7.4-10.4); MONOCYTES # (AUTO) 0.6 X10'3 (0-0.9); MONOCYTES % (AUTO) 4.5 % (2-12); NEUTROPHILS # (AUTO) 11.2 X10'3 (1.8-7.7); NEUTROPHILS % (AUTO) 83.6 % (42-75); PLATELET COUNT 208 X10'3 (140-440); RED BLOOD COUNT 5.43 X10'6 (4.70-6.10); RED CELL DISTRIBUTION WIDTH 13.3 % (11.5-14.5); WHITE BLOOD COUNT 13.4 X10'3 (4.5-11.0)
[2019-08-31] MEDS ORDERED: ketorolac trometh. 30mg/ml inj. IV ONE (09:45)
--- NOTE | 2019-08-31 09:45 | NUR ---
Dr Perezfs in at bedside.
[2019-08-31 09:58] LABS: ALANINE AMINOTRANSFERASE 27 U/L (12-78); ALBUMIN 4.4 G/DL (3.4-5.0); ALBUMIN/GLOBULIN RATIO 1.4 (1.1-1.5); ALKALINE PHOSPHATASE 71 IU/L (46-116); ANION GAP 15 (8-16); ASPARTATE AMINO TRANSFERASE 21 U/L (10-37); BILIRUBIN,TOTAL 0.4 MG/DL (0.1-1.0); BLOOD UREA NITROGEN 11 MG/DL (7-18); BUN/CREATININE RATIO 9.8 (5.4-32.0); CALCIUM 8.8 MG/DL (8.5-10.1); CHLORIDE 109 MMOL/L (99-107); CREATININE 1.12 MG/DL (0.60-1.10); GLUCOSE 117 MG/DL (70-104); LIPASE 709 U/L (73-393); POTASSIUM 3.7 MMOL/L (3.5-5.1); SODIUM 144 MMOL/L (135-145); TOTAL CARBON DIOXIDE 19.7 MMOL/L (24-32); TOTAL PROTEIN 7.6 G/DL (6.4-8.2); eGFR 72 ML/MIN
[2019-08-31 10:28] VITALS: BP 126/77
== END 2019-08-31 11:09 | disposition home or self-care (01) ==
LOC: ER 09:03
DX: G89.29 Other chronic pain (principal); R10.13 Epigastric pain; R11.2 Nausea with vomiting, unspecified; E78.00 Pure hypercholesterolemia, unspecified; K21.9 Gastro-esophageal reflux disease without esophagitis; F41.9 Anxiety disorder, unspecified; F12.90 Cannabis use, unspecified, uncomplicated; Z98.890 Other specified postprocedural states; Z56.0 Unemployment, unspecified; Z88.8 Allergy status to other drugs, medicaments and biological substances; Z88.6 Allergy status to analgesic agent; Z79.899 Other long term (current) drug therapy
CPT/HCPCS: 36415; 80053; 83690; 85025; 96361; 96372; 96374; 96375; 99284; J1200; J1630; J1885; J2060; J7030

== ENCOUNTER 2019-09-02 11:01 | Emergency (ER) | payer MEDICAID ==
[~2019-09-02] VITALS: Ht 188 cm; Wt 122.7 kg
[2019-09-02 11:07] VITALS: BP 133/87
[2019-09-02] MEDS ORDERED: ketorolac trometh. 30mg/ml inj. IV ONE (11:45)
--- NOTE | 2019-09-02 11:53 | NUR ---
MD Hancock talked with the pt about his recent visits and the pt's symptoms and how the pt has been encouraged to follow up with his PCP. the pt states he hasn't gone to his PCP yet. states this is what the pt needs to do and that treatment at the ER is not a good plan for follow up treatment and his PCP is the one who can help with further testing or treatment. the pt states "i just want something to take away the pain." the pt will be given toradol per order.
== END 2019-09-02 12:12 | disposition home or self-care (01) ==
LOC: ER 11:01
DX: R10.84 Generalized abdominal pain (principal); R11.2 Nausea with vomiting, unspecified; E78.00 Pure hypercholesterolemia, unspecified; K21.9 Gastro-esophageal reflux disease without esophagitis; G89.29 Other chronic pain; F41.9 Anxiety disorder, unspecified; F12.90 Cannabis use, unspecified, uncomplicated; Z13.9 Encounter for screening, unspecified; Z87.440 Personal history of urinary (tract) infections; Z56.0 Unemployment, unspecified; Z88.6 Allergy status to analgesic agent; Z88.8 Allergy status to other drugs, medicaments and biological substances; Z79.2 Long term (current) use of antibiotics; Z79.899 Other long term (current) drug therapy
CPT/HCPCS: 96374; 99283; J1885; 99284

== ENCOUNTER 2019-09-14 19:35 | Emergency (ER) | payer MEDICAID ==
[~2019-09-14] VITALS: Ht 188 cm; Wt 118.2 kg
[2019-09-14 19:45] VITALS: BP 143/96
[2019-09-14 20:19] LABS: CLARITY,URINE CLEAR (Clear); COLOR,URINE YELLOW (Yellow); GLUCOSE, URINE NEGATIVE (Neg); KETONES,URINE 40 mg/dl (Neg); LEUKOCYTE ESTERASE ,URINE NEGATIVE (Neg); NITRITES, URINE NEGATIVE (Neg); OCCULT BLOOD,URINE NEGATIVE (Neg); PH,URINE 5.5 (4.8-8.0); PROTEIN,URINE 30 mg/dl (Neg)
[2019-09-14 20:27] LABS: UA COLLECTION TYPE CLN CATCH MIDSTREAM
[2019-09-14 20:28] LABS: BASOPHILS % (AUTO) 0.4 % (0-1); EOSINOPHILS # (AUTO) 0.1 X10'3 (0-0.9); HEMOGLOBIN 17.3 g/dl (14.0-17.9); MONOCYTES # (AUTO) 0.8 X10'3 (0-0.9)
[2019-09-14 20:29] LABS: BACTERIA,URINE FEW /HPF (Neg); MUCUS STRANDS MODERATE /LPF (Neg); RBC,URINE NONE SEEN /HPF (0-2); SQUAMOUS EPITHELIAL CELL,UR FEW /LPF (FEW); WBC,URINE NONE SEEN /HPF (0-4)
[2019-09-14 20:30] LABS: EOSINOPHILS % (AUTO) 0.7 % (0-6); LYMPHOCYTES # (AUTO) 1.5 X10'3 (1.1-4.8); LYMPHOCYTES % (AUTO) 16.5 % (21-51); MEAN CORPUSCULAR HEMOGLOBIN 31.9 PG (27.0-31.0); MEAN CORPUSCULAR HGB CONC 35.5 g/dL (33.0-36.5); MEAN CORPUSCULAR VOLUME 89.8 FL (78-98); MEAN PLATELET VOLUME 9.4 FL (7.4-10.4); MONOCYTES % (AUTO) 8.2 % (2-12); NEUTROPHILS # (AUTO) 6.8 X10'3 (1.8-7.7); NEUTROPHILS % (AUTO) 74.2 % (42-75); PLATELET COUNT 235 X10'3 (140-440); RED BLOOD COUNT 5.42 X10'6 (4.70-6.10); WHITE BLOOD COUNT 9.2 X10'3 (4.5-11.0)
[2019-09-14 20:32] LABS: HEMATOCRIT 49.2 % (42.0-52.0)
[2019-09-14 20:40] LABS: ALANINE AMINOTRANSFERASE 34 U/L (12-78); ALBUMIN 4.9 G/DL (3.4-5.0); ALBUMIN/GLOBULIN RATIO 1.6 (1.1-1.5); ALKALINE PHOSPHATASE 65 IU/L (46-116); ANION GAP 19 (8-16); ASPARTATE AMINO TRANSFERASE 21 U/L (10-37); BILIRUBIN,TOTAL 1.8 MG/DL (0.1-1.0); BLOOD UREA NITROGEN 18 MG/DL (7-18); BUN/CREATININE RATIO 13.2 (5.4-32.0); CALCIUM 9.5 MG/DL (8.5-10.1); CHLORIDE 102 MMOL/L (99-107); CREATININE 1.36 MG/DL (0.60-1.10); GLUCOSE 108 MG/DL (70-104); LIPASE 255 U/L (73-393); POTASSIUM 3.9 MMOL/L (3.5-5.1); SODIUM 139 MMOL/L (135-145); TOTAL CARBON DIOXIDE 18.4 MMOL/L (24-32); eGFR 58 ML/MIN
[2019-09-14] MEDS ORDERED: ketorolac trometh inj. 60 MG/2 ML VIAL IM ONE (21:50)
[2019-09-14] MEDS ORDERED: morphine 4 MG/ML inj SYRINge IM ONE (21:50)
[2019-09-14] MEDS ORDERED: haloperidol lactate 5mg/ml inj IM ONE (21:50)
== END 2019-09-14 22:20 | disposition home or self-care (01) ==
LOC: ER 19:37
DX: K29.00 Acute gastritis without bleeding (principal); G89.29 Other chronic pain; R10.9 Unspecified abdominal pain; K59.00 Constipation, unspecified; E78.00 Pure hypercholesterolemia, unspecified; K21.9 Gastro-esophageal reflux disease without esophagitis; F41.9 Anxiety disorder, unspecified; F12.90 Cannabis use, unspecified, uncomplicated; Z56.0 Unemployment, unspecified; Z98.890 Other specified postprocedural states; Z88.8 Allergy status to other drugs, medicaments and biological substances; Z79.2 Long term (current) use of antibiotics; Z79.899 Other long term (current) drug therapy
CPT/HCPCS: 36415; 80053; 81001; 82570; 83690; 83835; 84585; 85025; 96372; 99284; J1630; J1885; J2270

== ENCOUNTER 2019-12-17 11:31 | Emergency (ER) | payer MEDICAID ==
[~2019-12-17] VITALS: Ht 188 cm; Wt 118.2 kg
[2019-12-17 11:36] VITALS: BP 115/84
[2019-12-17 11:56] LABS: BASOPHILS % (AUTO) 0.7 % (0-1); EOSINOPHILS # (AUTO) 0.2 X10'3 (0-0.9); EOSINOPHILS % (AUTO) 2.5 % (0-6); HEMATOCRIT 45.9 % (42.0-52.0); HEMOGLOBIN 16.3 g/dl (14.0-17.9); LYMPHOCYTES # (AUTO) 1.3 X10'3 (1.1-4.8); LYMPHOCYTES % (AUTO) 18.2 % (21-51); MEAN CORPUSCULAR HEMOGLOBIN 31.9 PG (27.0-31.0); MEAN CORPUSCULAR HGB CONC 35.5 g/dL (33.0-36.5); MEAN CORPUSCULAR VOLUME 89.6 FL (78-98); MEAN PLATELET VOLUME 8.8 FL (7.4-10.4); MONOCYTES # (AUTO) 0.4 X10'3 (0-0.9); MONOCYTES % (AUTO) 5.6 % (2-12); NEUTROPHILS # (AUTO) 5.2 X10'3 (1.8-7.7); PLATELET COUNT 214 X10'3 (140-440); RED BLOOD COUNT 5.12 X10'6 (4.70-6.10); RED CELL DISTRIBUTION WIDTH 13.1 % (11.5-14.5); WHITE BLOOD COUNT 7.2 X10'3 (4.5-11.0)
[2019-12-17 12:15] LABS: ALANINE AMINOTRANSFERASE 27 U/L (12-78); ALBUMIN 4.4 G/DL (3.4-5.0); ALBUMIN/GLOBULIN RATIO 1.3 (1.1-1.5); ALKALINE PHOSPHATASE 78 IU/L (46-116); AMYLASE 21 U/L (25-115); ANION GAP 10 (8-16); ASPARTATE AMINO TRANSFERASE 15 U/L (10-37); BILIRUBIN,TOTAL 0.6 MG/DL (0.1-1.0); BLOOD UREA NITROGEN 12 MG/DL (7-18); BUN/CREATININE RATIO 11.1 (5.4-32.0); CALCIUM 8.8 MG/DL (8.5-10.1); CHLORIDE 102 MMOL/L (99-107); CREATININE 1.08 MG/DL (0.60-1.10); GLUCOSE 108 MG/DL (70-104); LIPASE 192 U/L (73-393); POTASSIUM 4.3 MMOL/L (3.5-5.1); SODIUM 136 MMOL/L (135-145); TOTAL CARBON DIOXIDE 24.2 MMOL/L (24-32); TOTAL PROTEIN 7.8 G/DL (6.4-8.2); eGFR 75 ML/MIN
[2019-12-17 12:31] LABS: CLARITY,URINE CLEAR (Clear); COLOR,URINE STRAW (Yellow); GLUCOSE, URINE NEGATIVE (Neg); KETONES,URINE NEGATIVE (Neg); LEUKOCYTE ESTERASE ,URINE NEGATIVE (Neg); NITRITES, URINE NEGATIVE (Neg); OCCULT BLOOD,URINE NEGATIVE (Neg); PROTEIN,URINE NEGATIVE (Neg); UROBILINOGEN,URINE 0.2 E.U/dL (0.2-1.0)
[2019-12-17 12:34] LABS: UA COLLECTION TYPE VOIDED
[2019-12-17 13:29] LABS: PLATELET ESTIMATE NORMAL
[2019-12-17 13:30] LABS: LARGE PLATELETS FEW; SPHEROCYTES 1+
[2019-12-17] MEDS ORDERED: ondansetron/PF 4mg/2ml inj IV ONE (13:50)
[2019-12-17] MEDS ORDERED: morphine 4 MG/ML inj SYRINge IV ONE (13:50)
[2019-12-17] MEDS ORDERED: HYDROcodone/acetaminophen 5mg/325mg tablet PO ONE ×2 (14:00)
[2019-12-17] MEDS ORDERED: ondansetron 4mg rapidly disintigrating tab PO ONE ×2 (14:00)
== END 2019-12-17 14:00 | disposition home or self-care (01) ==
LOC: ER 11:31
DX: R10.84 Generalized abdominal pain (principal); G89.29 Other chronic pain; E78.00 Pure hypercholesterolemia, unspecified; K21.9 Gastro-esophageal reflux disease without esophagitis; F41.9 Anxiety disorder, unspecified; F12.90 Cannabis use, unspecified, uncomplicated; Z87.440 Personal history of urinary (tract) infections; Z98.890 Other specified postprocedural states; Z56.0 Unemployment, unspecified; Z88.8 Allergy status to other drugs, medicaments and biological substances; Z88.6 Allergy status to analgesic agent; Z79.899 Other long term (current) drug therapy
CPT/HCPCS: 36415; 74176; 80053; 81003; 82150; 83690; 85008; 85025; 99284

== ENCOUNTER 2019-12-30 11:48 | Emergency (ER) | payer MEDICAID ==
[~2019-12-30] VITALS: Ht 188 cm; Wt 118.2 kg
[2019-12-30 12:02] VITALS: BP 135/92
[2019-12-30] MEDS ORDERED: dicyclomine 10 MG capsule PO ONE (12:40)
[2019-12-30] MEDS ORDERED: loperamide 2mg capsule PO ONE (12:40)
[2019-12-30] MEDS ORDERED: ONDA4TAB6 PO (12:48)
[2019-12-30] MEDS ORDERED: DICY10CA88 PO (12:48)
== END 2019-12-30 14:59 | disposition home or self-care (01) ==
LOC: ER 11:49
DX: R19.7 Diarrhea, unspecified (principal); R05 Cough; R10.12 Left upper quadrant pain; R10.9 Unspecified abdominal pain; E78.00 Pure hypercholesterolemia, unspecified; K21.9 Gastro-esophageal reflux disease without esophagitis; G89.29 Other chronic pain; F41.9 Anxiety disorder, unspecified; F12.90 Cannabis use, unspecified, uncomplicated; Z98.890 Other specified postprocedural states; Z56.0 Unemployment, unspecified; Z20.828 Contact with and (suspected) exposure to other viral communicable diseases; Z88.8 Allergy status to other drugs, medicaments and biological substances; Z79.899 Other long term (current) drug therapy
CPT/HCPCS: 99283

== ENCOUNTER 2020-02-28 16:27 | Emergency (ER) | payer MEDICAID ==
[~2020-02-28] VITALS: Ht 188 cm; Wt 118.2 kg
[2020-02-28] MEDS ORDERED: acetaminophen 325mg tablet PO ONE (17:50)
--- NOTE | 2020-02-28 18:04 | NUR ---
Pt in ER room 1: labs drawn with IV start. Placed on cont spo2 monitoring. Pt c/o cont 8/10 generalized abd pain, no vomiting. PA notified. GCS 15, lungs clear, abdomen soft, tender to palpation.
[2020-02-28 18:12] LABS: BASOPHILS % (AUTO) 0.3 % (0-1); EOSINOPHILS # (AUTO) 0.1 X10'3 (0-0.9); EOSINOPHILS % (AUTO) 0.5 % (0-6); HEMATOCRIT 46.7 % (42.0-52.0); HEMOGLOBIN 16.4 g/dl (14.0-17.9); LYMPHOCYTES # (AUTO) 1.1 X10'3 (1.1-4.8); LYMPHOCYTES % (AUTO) 8.8 % (21-51); MEAN CORPUSCULAR HEMOGLOBIN 31.2 PG (27.0-31.0); MEAN CORPUSCULAR HGB CONC 35.2 g/dL (33.0-36.5); MEAN CORPUSCULAR VOLUME 88.7 FL (78-98); MEAN PLATELET VOLUME 9.1 FL (7.4-10.4); MONOCYTES # (AUTO) 0.5 X10'3 (0-0.9); NEUTROPHILS # (AUTO) 10.5 X10'3 (1.8-7.7); NEUTROPHILS % (AUTO) 86.4 % (42-75); PLATELET COUNT 207 X10'3 (140-440); RED BLOOD COUNT 5.26 X10'6 (4.70-6.10); RED CELL DISTRIBUTION WIDTH 13.3 % (11.5-14.5); WHITE BLOOD COUNT 12.2 X10'3 (4.5-11.0)
[2020-02-28 18:13] LABS: CLARITY,URINE CLEAR (Clear); COLOR,URINE YELLOW (Yellow); GLUCOSE, URINE NEGATIVE (Neg); KETONES,URINE NEGATIVE (Neg); LEUKOCYTE ESTERASE ,URINE NEGATIVE (Neg); NITRITES, URINE NEGATIVE (Neg); OCCULT BLOOD,URINE NEGATIVE (Neg); PROTEIN,URINE NEGATIVE (Neg); UROBILINOGEN,URINE 0.2 E.U/dL (0.2-1.0)
[2020-02-28 18:14] LABS: UA COLLECTION TYPE VOIDED
[2020-02-28] MEDS ORDERED: LIDOcaine Viscous 15ml cup MM PRN (18:15)
[2020-02-28] MEDS ORDERED: mag hydrox/Alum hydrox/simeth 30ml oral suspension PO ONE (18:15)
[2020-02-28] MEDS: dicyclomine 10 MG capsule PO ONE ×2 (18:15→19:00)
[2020-02-28 18:21] LABS: ALANINE AMINOTRANSFERASE 38 U/L (12-78); ALBUMIN 4.4 G/DL (3.4-5.0); ALBUMIN/GLOBULIN RATIO 1.3 (1.1-1.5); ALKALINE PHOSPHATASE 71 IU/L (46-116); ANION GAP 9 (8-16); ASPARTATE AMINO TRANSFERASE 24 U/L (10-37); BILIRUBIN,TOTAL 0.6 MG/DL (0.1-1.0); BLOOD UREA NITROGEN 13 MG/DL (7-18); BUN/CREATININE RATIO 12.6 (5.4-32.0); CALCIUM 8.9 MG/DL (8.5-10.1); CHLORIDE 105 MMOL/L (99-107); CREATININE 1.03 MG/DL (0.60-1.10); GLUCOSE 109 MG/DL (70-104); POTASSIUM 4.3 MMOL/L (3.5-5.1); SODIUM 139 MMOL/L (135-145); TOTAL CARBON DIOXIDE 24.7 MMOL/L (24-32); TOTAL PROTEIN 7.8 G/DL (6.4-8.2); eGFR 80 ML/MIN
--- NOTE | 2020-02-28 19:04 | NUR ---
Pt resting in bed, given urinal and vitals taken
--- NOTE | 2020-02-28 19:04 | NUR ---
Pt complains of 8/10 abd pain in epigastric region with nausea.
[2020-02-28 19:20] LABS: LIPASE 956 U/L (73-393)
[2020-02-28] MEDS ORDERED: pantoprazole 40mg Tablet.DR PO ONE (19:30)
[2020-02-28] MEDS ORDERED: HYDROcodone/acetaminophen 10/325mg tab PO ONE (19:35)
[2020-02-28 19:57] VITALS: BP 135/93
[2020-02-29] MEDS ORDERED: pantoprazole 40mg Tablet.DR PO SCH (07:30)
== END 2020-02-28 19:59 | disposition home or self-care (01) ==
LOC: ER 16:27
DX: R10.84 Generalized abdominal pain (principal); R11.10 Vomiting, unspecified; R19.7 Diarrhea, unspecified; E78.00 Pure hypercholesterolemia, unspecified; K21.9 Gastro-esophageal reflux disease without esophagitis; G89.29 Other chronic pain; F41.9 Anxiety disorder, unspecified; Z87.448 Personal history of other diseases of urinary system; Z59.0 Homelessness; Z88.8 Allergy status to other drugs, medicaments and biological substances; Z20.828 Contact with and (suspected) exposure to other viral communicable diseases
CPT/HCPCS: 36415; 80053; 81003; 83690; 85025; 87635; 99284

== ENCOUNTER 2020-03-13 17:04 | Emergency (ER) | payer MEDICAID ==
[~2020-03-13] VITALS: Ht 188 cm; Wt 130.0 kg
[2020-03-13 17:43] LABS: BASOPHILS % (AUTO) 0.5 % (0-1); EOSINOPHILS # (AUTO) 0.1 X10'3 (0-0.9); EOSINOPHILS % (AUTO) 1.4 % (0-6); HEMATOCRIT 45.8 % (42.0-52.0); HEMOGLOBIN 16.2 g/dl (14.0-17.9); LYMPHOCYTES # (AUTO) 1.6 X10'3 (1.1-4.8); LYMPHOCYTES % (AUTO) 18.9 % (21-51); MEAN CORPUSCULAR HEMOGLOBIN 31.4 PG (27.0-31.0); MEAN CORPUSCULAR HGB CONC 35.4 g/dL (33.0-36.5); MEAN CORPUSCULAR VOLUME 88.5 FL (78-98); MEAN PLATELET VOLUME 9.4 FL (7.4-10.4); MONOCYTES # (AUTO) 0.5 X10'3 (0-0.9); MONOCYTES % (AUTO) 6.1 % (2-12); NEUTROPHILS # (AUTO) 6.3 X10'3 (1.8-7.7); NEUTROPHILS % (AUTO) 73.1 % (42-75); PLATELET COUNT 201 X10'3 (140-440); RED BLOOD COUNT 5.18 X10'6 (4.70-6.10); RED CELL DISTRIBUTION WIDTH 13.6 % (11.5-14.5); WHITE BLOOD COUNT 8.6 X10'3 (4.5-11.0)
[2020-03-13 17:51] LABS: ALANINE AMINOTRANSFERASE 29 U/L (12-78); ALBUMIN 4.4 G/DL (3.4-5.0); ALBUMIN/GLOBULIN RATIO 1.4 (1.1-1.5); ALKALINE PHOSPHATASE 69 IU/L (46-116); ANION GAP 12 (8-16); ASPARTATE AMINO TRANSFERASE 21 U/L (10-37); BILIRUBIN,TOTAL 0.6 MG/DL (0.1-1.0); BLOOD UREA NITROGEN 12 MG/DL (7-18); BUN/CREATININE RATIO 12.5 (5.4-32.0); CALCIUM 8.8 MG/DL (8.5-10.1); CHLORIDE 105 MMOL/L (99-107); CREATININE 0.96 MG/DL (0.60-1.10); GLUCOSE 104 MG/DL (70-104); SODIUM 140 MMOL/L (135-145); TOTAL CARBON DIOXIDE 22.8 MMOL/L (24-32); TOTAL PROTEIN 7.6 G/DL (6.4-8.2); eGFR 86 ML/MIN
[2020-03-13 17:52] LABS: AMYLASE 30 U/L (25-115)
[2020-03-13 17:54] LABS: LIPASE 1729 U/L (73-393)
[2020-03-13 19:42] LABS: CLARITY,URINE CLEAR (Clear); COLOR,URINE YELLOW (Yellow); GLUCOSE, URINE NEGATIVE (Neg); KETONES,URINE NEGATIVE (Neg); LEUKOCYTE ESTERASE ,URINE NEGATIVE (Neg); NITRITES, URINE NEGATIVE (Neg); OCCULT BLOOD,URINE NEGATIVE (Neg); PROTEIN,URINE NEGATIVE (Neg); UROBILINOGEN,URINE 0.2 E.U/dL (0.2-1.0)
[2020-03-13 19:47] LABS: UA COLLECTION TYPE CLN CATCH MIDSTREAM
[2020-03-13] MEDS ORDERED: ondansetron/PF 4mg/2ml inj IV ONE (19:50)
[2020-03-13] MEDS ORDERED: ketorolac trometh. 30mg/ml inj. IV ONE (19:50)
[2020-03-13] MEDS: morphine 4 MG/ML inj SYRINge IV PRN ×2 (20:33→21:43)
[2020-03-13] MEDS ORDERED: ONDA4TAB6 PO (21:27)
[2020-03-13] MEDS ORDERED: HYDR-4353 PO (21:27)
[2020-03-13] MEDS ORDERED: HYDROcodone/acetaminophen 10/325mg tab PO ONE (21:45)
[2020-03-13 22:26] VITALS: BP 147/92
== END 2020-03-13 22:31 | disposition home or self-care (01) ==
LOC: ER 17:05
DX: K85.90 Acute pancreatitis without necrosis or infection, unspecified (principal); E78.00 Pure hypercholesterolemia, unspecified; K21.9 Gastro-esophageal reflux disease without esophagitis; G89.29 Other chronic pain; F12.90 Cannabis use, unspecified, uncomplicated; Z56.0 Unemployment, unspecified; Z88.8 Allergy status to other drugs, medicaments and biological substances; Z79.899 Other long term (current) drug therapy
CPT/HCPCS: 36415; 80053; 81003; 82150; 83690; 85025; 96374; 96375; 96376; 99284; J1885; J2270; J2405

== ENCOUNTER 2020-04-01 00:26 | Emergency (ER) | payer MEDICAID ==
[~2020-04-01] VITALS: Ht 188 cm; Wt 118.2 kg
[~2020-04-01 00:26] MED LIST changes: +HYDR-4353 PO
[2020-04-01] MEDS ORDERED: ondansetron/PF 4mg/2ml inj IV STA (00:33)
[2020-04-01] MEDS ORDERED: normal saline 1000ml 1,000 ML IVB ONE (00:35)
[2020-04-01 01:02] LABS: BASOPHILS % (AUTO) 0.5 % (0-1); EOSINOPHILS # (AUTO) 0.2 X10'3 (0-0.9); EOSINOPHILS % (AUTO) 2.5 % (0-6); HEMOGLOBIN 16.2 g/dl (14.0-17.9); LYMPHOCYTES # (AUTO) 1.6 X10'3 (1.1-4.8); LYMPHOCYTES % (AUTO) 23.4 % (21-51); MEAN CORPUSCULAR HGB CONC 34.5 g/dL (33.0-36.5); MEAN CORPUSCULAR VOLUME 89.7 FL (78-98); MEAN PLATELET VOLUME 9.5 FL (7.4-10.4); MONOCYTES # (AUTO) 0.5 X10'3 (0-0.9); MONOCYTES % (AUTO) 7.1 % (2-12); NEUTROPHILS # (AUTO) 4.6 X10'3 (1.8-7.7); NEUTROPHILS % (AUTO) 66.5 % (42-75); PLATELET COUNT 189 X10'3 (140-440); RED BLOOD COUNT 5.25 X10'6 (4.70-6.10); RED CELL DISTRIBUTION WIDTH 13.6 % (11.5-14.5)
[2020-04-01 01:20] LABS: ALANINE AMINOTRANSFERASE 20 U/L (12-78); ALBUMIN 4.3 G/DL (3.4-5.0); ALBUMIN/GLOBULIN RATIO 1.4 (1.1-1.5); ALKALINE PHOSPHATASE 70 IU/L (46-116); ANION GAP 11 (8-16); ASPARTATE AMINO TRANSFERASE 11 U/L (10-37); BILIRUBIN,TOTAL 0.5 MG/DL (0.1-1.0); BLOOD UREA NITROGEN 11 MG/DL (7-18); BUN/CREATININE RATIO 10.5 (5.4-32.0); CALCIUM 8.3 MG/DL (8.5-10.1); CHLORIDE 106 MMOL/L (99-107); CREATININE 1.05 MG/DL (0.60-1.10); GLUCOSE 109 MG/DL (70-104); LIPASE 191 U/L (73-393); POTASSIUM 3.9 MMOL/L (3.5-5.1); SODIUM 142 MMOL/L (135-145); TOTAL CARBON DIOXIDE 25.1 MMOL/L (24-32); TOTAL PROTEIN 7.4 G/DL (6.4-8.2); eGFR 77 ML/MIN
[2020-04-01] MEDS ORDERED: morphine 4 MG/ML inj SYRINge IV ONE (01:20)
[2020-04-01 01:58] LABS: CLARITY,URINE CLEAR (Clear); COLOR,URINE YELLOW (Yellow); GLUCOSE, URINE NEGATIVE (Neg); KETONES,URINE NEGATIVE (Neg); LEUKOCYTE ESTERASE ,URINE NEGATIVE (Neg); NITRITES, URINE NEGATIVE (Neg); OCCULT BLOOD,URINE NEGATIVE (Neg); PH,URINE 6.5 (4.8-8.0); PROTEIN,URINE NEGATIVE (Neg); UROBILINOGEN,URINE 0.2 E.U/dL (0.2-1.0)
[2020-04-01 01:59] LABS: UA COLLECTION TYPE CLN CATCH MIDSTREAM
[2020-04-01] MEDS ORDERED: bisacodyl 10mg suppository rectal RC ONE (02:30)
[2020-04-01] MEDS ORDERED: ketorolac trometh. 30mg/ml inj. IV ONE (02:30)
[2020-04-01] MEDS ORDERED: normal saline 1000ML IV soln IVB ONE (02:30)
[2020-04-01 02:45] LABS: ETHANOL < 0.010 GM/DL (0.0-0.010)
[2020-04-01 02:53] LABS: URINE AMPHETAMINE SCREEN NEGATIVE (Neg); URINE BARBITUATE SCREEN NEGATIVE (Neg); URINE BENZODIAZEPINES SCREEN NEGATIVE (Neg); URINE CANNABINOID SCREEN POSITIVE (Neg); URINE COCAINE SCREEN NEGATIVE (Neg); URINE METHADONE SCREEN NEGATIVE (Neg); URINE OPIATE SCREEN NEGATIVE (Neg); URINE PHENCYCLIDINE SCREEN NEGATIVE (Neg)
--- NOTE | 2020-04-01 03:07 | NUR ---
pt refsuing supossitory at this time
[2020-04-01] MEDS ORDERED: DICY10CA88 PO (03:14)
[2020-04-01] MEDS ORDERED: dicyclomine 10 MG capsule PO ONE (03:15)
[2020-04-01 03:22] VITALS: BP 144/86
[2020-04-01] MEDS ORDERED: ondansetron/PF 4mg/2ml inj IV ONE (03:30)
== END 2020-04-01 03:23 | disposition home or self-care (01) ==
LOC: ER 00:27
DX: R10.84 Generalized abdominal pain (principal); K59.00 Constipation, unspecified; R11.10 Vomiting, unspecified; E78.00 Pure hypercholesterolemia, unspecified; K21.9 Gastro-esophageal reflux disease without esophagitis; G89.29 Other chronic pain; F41.9 Anxiety disorder, unspecified; F12.90 Cannabis use, unspecified, uncomplicated; Z87.440 Personal history of urinary (tract) infections; Z56.0 Unemployment, unspecified; Z88.6 Allergy status to analgesic agent; Z88.8 Allergy status to other drugs, medicaments and biological substances; Z79.2 Long term (current) use of antibiotics; Z79.899 Other long term (current) drug therapy
CPT/HCPCS: 36415; 74018; 80053; 80305; 80320; 81003; 83690; 85025; 93005; 96374; 96375; 96376; 99285; J1885; J2270; J2405; J7030; 96361

== ENCOUNTER 2020-04-04 22:18 | Emergency (ER) | payer MEDICAID ==
[~2020-04-04] VITALS: Ht 188 cm; Wt 118.6 kg
[2020-04-04 22:51] LABS: BASOPHILS % (AUTO) 0.6 % (0-1); EOSINOPHILS # (AUTO) 0.3 X10'3 (0-0.9); EOSINOPHILS % (AUTO) 3.9 % (0-6); HEMATOCRIT 45.6 % (42.0-52.0); HEMOGLOBIN 15.9 g/dl (14.0-17.9); LYMPHOCYTES # (AUTO) 1.6 X10'3 (1.1-4.8); LYMPHOCYTES % (AUTO) 24.7 % (21-51); MEAN CORPUSCULAR HEMOGLOBIN 31.2 PG (27.0-31.0); MEAN CORPUSCULAR VOLUME 89.2 FL (78-98); MEAN PLATELET VOLUME 9.3 FL (7.4-10.4); MONOCYTES # (AUTO) 0.5 X10'3 (0-0.9); MONOCYTES % (AUTO) 7.6 % (2-12); NEUTROPHILS # (AUTO) 4.1 X10'3 (1.8-7.7); NEUTROPHILS % (AUTO) 63.2 % (42-75); PLATELET COUNT 178 X10'3 (140-440); RED BLOOD COUNT 5.11 X10'6 (4.70-6.10); RED CELL DISTRIBUTION WIDTH 13.1 % (11.5-14.5); WHITE BLOOD COUNT 6.5 X10'3 (4.5-11.0)
[2020-04-04] MEDS ORDERED: morphine 10mg/ml inj. IV ONE (23:00)
[2020-04-04] MEDS ORDERED: ondansetron/PF 4mg/2ml inj IV ONE (23:00)
[2020-04-04] MEDS ORDERED: famotidine/PF 10 mg/ml inj IV ONE (23:00)
[2020-04-04 23:06] LABS: ALANINE AMINOTRANSFERASE 28 U/L (12-78); ALBUMIN 4.2 G/DL (3.4-5.0); ALBUMIN/GLOBULIN RATIO 1.4 (1.1-1.5); ALKALINE PHOSPHATASE 71 IU/L (46-116); ANION GAP 9 (8-16); ASPARTATE AMINO TRANSFERASE 14 U/L (10-37); BILIRUBIN,TOTAL 0.5 MG/DL (0.1-1.0); BLOOD UREA NITROGEN 15 MG/DL (7-18); BUN/CREATININE RATIO 13.4 (5.4-32.0); CALCIUM 8.4 MG/DL (8.5-10.1); CHLORIDE 105 MMOL/L (99-107); CREATININE 1.12 MG/DL (0.60-1.10); GLUCOSE 115 MG/DL (70-104); LIPASE 181 U/L (73-393); SODIUM 138 MMOL/L (135-145); TOTAL CARBON DIOXIDE 24.3 MMOL/L (24-32); TOTAL PROTEIN 7.3 G/DL (6.4-8.2); eGFR 72 ML/MIN
[2020-04-04] MEDS ORDERED: LIDOcaine Viscous 15ml cup MM STA (23:16)
[2020-04-04] MEDS ORDERED: diphenhydrAMINE 25 MG/10 ML UD oral solution PO ONE (23:20)
[2020-04-04] MEDS ORDERED: mag hydrox/Alum hydrox/simeth 30ml oral suspension PO ONE (23:20)
[2020-04-05] MEDS ORDERED: HYDROcodone/acetaminophen 10/325mg tab PO ONE (00:15)
[2020-04-05] MEDS ORDERED: normal saline 1000ml 1,000 ML IV ONE (00:15)
[2020-04-05] MEDS ORDERED: morphine 10mg/ml inj. IV ONE (00:50)
[2020-04-05 00:58] LABS: CLARITY,URINE CLEAR (Clear); COLOR,URINE YELLOW (Yellow); GLUCOSE, URINE NEGATIVE (Neg); KETONES,URINE NEGATIVE (Neg); LEUKOCYTE ESTERASE ,URINE NEGATIVE (Neg); NITRITES, URINE NEGATIVE (Neg); OCCULT BLOOD,URINE NEGATIVE (Neg); PH,URINE 6.5 (4.8-8.0); PROTEIN,URINE NEGATIVE (Neg); UROBILINOGEN,URINE 0.2 E.U/dL (0.2-1.0)
[2020-04-05 00:59] LABS: UA COLLECTION TYPE CLN CATCH MIDSTREAM
[2020-04-05] MEDS ORDERED: diatr meglu/diatrizoate 30ml oral sol.-(3 dose) bottle PO SCH (01:25)
[2020-04-05] MEDS ORDERED: iohexol 300mg/ml 100ml inj. ONE (01:27)
--- NOTE | 2020-04-05 01:30 | NUR ---
patient able to consume 240ml/h2o w/o problem
[2020-04-05] MEDS ORDERED: ondansetron/PF 4mg/2ml inj IV ONE (02:10)
[2020-04-05] MEDS ORDERED: diphenhydrAMINE 50 mg/ml inj IV ONE (02:10)
[2020-04-05] MEDS ORDERED: HYDROmorphone 1 mg/ml syringe IV ONE (02:25)
[2020-04-05 03:19] VITALS: BP 137/97
--- NOTE | 2020-04-05 03:27 | NUR ---
Patient confirms he is not driving, waiting outside for him.
== END 2020-04-05 03:28 | disposition home or self-care (01) ==
LOC: ER 22:18
DX: R10.13 Epigastric pain (principal); R11.10 Vomiting, unspecified; R19.7 Diarrhea, unspecified; E78.00 Pure hypercholesterolemia, unspecified; K21.9 Gastro-esophageal reflux disease without esophagitis; G89.29 Other chronic pain; F41.9 Anxiety disorder, unspecified; F12.90 Cannabis use, unspecified, uncomplicated; Z98.890 Other specified postprocedural states; Z56.0 Unemployment, unspecified; Z88.8 Allergy status to other drugs, medicaments and biological substances; Z88.6 Allergy status to analgesic agent; Z79.899 Other long term (current) drug therapy
CPT/HCPCS: 36415; 74177; 80053; 81003; 83690; 85025; 93005; 96361; 96374; 96375; 96376; 99285; J1170; J1200; J2270; J2405; J3490; J7030; Q0163; Q9963; Q9967

== ENCOUNTER 2020-04-12 07:03 | Emergency (ER) | payer MEDICAID ==
[~2020-04-12] VITALS: Ht 188 cm; Wt 120.0 kg
[2020-04-12] MEDS ORDERED: ondansetron/PF 4mg/2ml inj IV ONE (08:45)
[2020-04-12] MEDS ORDERED: morphine 4 MG/ML inj SYRINge IV ONE ×2 (08:45→10:40)
[2020-04-12] MEDS ORDERED: normal saline 1000ML IV soln IVB ONE ×2 (08:45)
[2020-04-12] MEDS ORDERED: pantoprazole 40 MG vial IV ONE ×2 (08:45→09:32)
[2020-04-12 09:28] LABS: BASOPHILS % (AUTO) 0.5 % (0-1); EOSINOPHILS # (AUTO) 0.1 X10'3 (0-0.9); EOSINOPHILS % (AUTO) 1.5 % (0-6); HEMATOCRIT 46.4 % (42.0-52.0); HEMOGLOBIN 16.1 g/dl (14.0-17.9); LYMPHOCYTES # (AUTO) 1.3 X10'3 (1.1-4.8); LYMPHOCYTES % (AUTO) 21.9 % (21-51); MEAN CORPUSCULAR HGB CONC 34.7 g/dL (33.0-36.5); MEAN CORPUSCULAR VOLUME 89.2 FL (78-98); MEAN PLATELET VOLUME 9.5 FL (7.4-10.4); MONOCYTES # (AUTO) 0.3 X10'3 (0-0.9); MONOCYTES % (AUTO) 5.3 % (2-12); NEUTROPHILS # (AUTO) 4.3 X10'3 (1.8-7.7); NEUTROPHILS % (AUTO) 70.8 % (42-75); PLATELET COUNT 194 X10'3 (140-440); RED CELL DISTRIBUTION WIDTH 13.5 % (11.5-14.5); WHITE BLOOD COUNT 6.1 X10'3 (4.5-11.0)
[2020-04-12] MEDS ORDERED: morphine 4 MG/ML inj SYRINge ONE (09:32)
[2020-04-12] MEDS ORDERED: ondansetron/PF 4mg/2ml inj ONE (09:32)
[2020-04-12 09:44] LABS: ALANINE AMINOTRANSFERASE 28 U/L (12-78); ALBUMIN 4.3 G/DL (3.4-5.0); ALBUMIN/GLOBULIN RATIO 1.3 (1.1-1.5); ALKALINE PHOSPHATASE 64 IU/L (46-116); ANION GAP 10 (8-16); ASPARTATE AMINO TRANSFERASE 16 U/L (10-37); BILIRUBIN,TOTAL 0.7 MG/DL (0.1-1.0); BLOOD UREA NITROGEN 13 MG/DL (7-18); BUN/CREATININE RATIO 13.3 (5.4-32.0); CALCIUM 8.8 MG/DL (8.5-10.1); CHLORIDE 106 MMOL/L (99-107); CREATININE 0.98 MG/DL (0.60-1.10); GLUCOSE 108 MG/DL (70-104); LIPASE 203 U/L (73-393); POTASSIUM 4.3 MMOL/L (3.5-5.1); SODIUM 140 MMOL/L (135-145); TOTAL CARBON DIOXIDE 23.8 MMOL/L (24-32); TOTAL PROTEIN 7.7 G/DL (6.4-8.2); eGFR 84 ML/MIN
[2020-04-12 11:24] VITALS: BP 116/75
== END 2020-04-12 11:24 | disposition home or self-care (01) ==
LOC: ER 07:03
DX: G89.29 Other chronic pain (principal); R10.11 Right upper quadrant pain; R10.12 Left upper quadrant pain; R10.33 Periumbilical pain; R11.10 Vomiting, unspecified; E78.00 Pure hypercholesterolemia, unspecified; K21.9 Gastro-esophageal reflux disease without esophagitis; F12.90 Cannabis use, unspecified, uncomplicated; Z88.8 Allergy status to other drugs, medicaments and biological substances; Z79.899 Other long term (current) drug therapy; Z87.440 Personal history of urinary (tract) infections; Z87.891 Personal history of nicotine dependence; Z56.0 Unemployment, unspecified
CPT/HCPCS: 36415; 80053; 83690; 85025; 96374; 96375; 96376; 99284; C9113; J2270; J2405; J7030

== ENCOUNTER 2020-04-19 09:57 | Emergency (ER) | payer MEDICAID ==
[~2020-04-19] VITALS: Ht 188 cm; Wt 121.7 kg
[~2020-04-19 09:57] MED LIST changes: -HYDR-4353 PO
[2020-04-19] MEDS ORDERED: ketorolac tromethamine 15mg/ml inj. IV ONE (10:15)
[2020-04-19] MEDS ORDERED: normal saline 1000ML IV soln IVB ONE (10:15)
[2020-04-19] MEDS ORDERED: ondansetron/PF 4mg/2ml inj IV ONE (10:15)
--- NOTE | 2020-04-19 11:07 | NUR ---
ULTRASOUND AT BEDSIDE
[2020-04-19 11:12] LABS: ALANINE AMINOTRANSFERASE 25 U/L (12-78); ALBUMIN 4.1 G/DL (3.4-5.0); ALBUMIN/GLOBULIN RATIO 1.3 (1.1-1.5); ALKALINE PHOSPHATASE 66 IU/L (46-116); ANION GAP 12 (8-16); ASPARTATE AMINO TRANSFERASE 15 U/L (10-37); BILIRUBIN,TOTAL 0.5 MG/DL (0.1-1.0); BLOOD UREA NITROGEN 15 MG/DL (7-18); BUN/CREATININE RATIO 16.5 (5.4-32.0); CALCIUM 8.6 MG/DL (8.5-10.1); CHLORIDE 106 MMOL/L (99-107); CREATININE 0.91 MG/DL (0.60-1.10); GLUCOSE 107 MG/DL (70-104); LIPASE 227 U/L (73-393); POTASSIUM 4.3 MMOL/L (3.5-5.1); SODIUM 141 MMOL/L (135-145); TOTAL CARBON DIOXIDE 22.6 MMOL/L (24-32); TOTAL PROTEIN 7.3 G/DL (6.4-8.2); eGFR > 90 ML/MIN
[2020-04-19 11:13] LABS: BASOPHILS % (AUTO) 0.8 % (0-1); EOSINOPHILS # (AUTO) 0.1 X10'3 (0-0.9); EOSINOPHILS % (AUTO) 2.3 % (0-6); HEMATOCRIT 46.8 % (42.0-52.0); HEMOGLOBIN 16.3 g/dl (14.0-17.9); LYMPHOCYTES # (AUTO) 1.1 X10'3 (1.1-4.8); LYMPHOCYTES % (AUTO) 18.5 % (21-51); MEAN CORPUSCULAR HEMOGLOBIN 31.1 PG (27.0-31.0); MEAN CORPUSCULAR HGB CONC 34.8 g/dL (33.0-36.5); MEAN CORPUSCULAR VOLUME 89.4 FL (78-98); MEAN PLATELET VOLUME 9.5 FL (7.4-10.4); MONOCYTES # (AUTO) 0.4 X10'3 (0-0.9); MONOCYTES % (AUTO) 6.1 % (2-12); NEUTROPHILS # (AUTO) 4.4 X10'3 (1.8-7.7); NEUTROPHILS % (AUTO) 72.3 % (42-75); PLATELET COUNT 193 X10'3 (140-440); RED BLOOD COUNT 5.23 X10'6 (4.70-6.10); RED CELL DISTRIBUTION WIDTH 13.4 % (11.5-14.5); WHITE BLOOD COUNT 6.1 X10'3 (4.5-11.0)
[2020-04-19] MEDS ORDERED: mag hydrox/Alum hydrox/simeth 30ml oral suspension PO ONE (11:45)
[2020-04-19] MEDS ORDERED: LIDOcaine Viscous 15ml cup MM ONE (11:45)
[2020-04-19 12:01] LABS: CLARITY,URINE CLEAR (Clear); COLOR,URINE YELLOW (Yellow); GLUCOSE, URINE NEGATIVE (Neg); KETONES,URINE NEGATIVE (Neg); LEUKOCYTE ESTERASE ,URINE TRACE (Neg); NITRITES, URINE NEGATIVE (Neg); OCCULT BLOOD,URINE NEGATIVE (Neg); PROTEIN,URINE NEGATIVE (Neg); UROBILINOGEN,URINE 0.2 E.U/dL (0.2-1.0)
[2020-04-19] MEDS ORDERED: morphine 4 MG/ML inj SYRINge IV ONE ×2 (12:20→13:20)
[2020-04-19 12:21] LABS: UA COLLECTION TYPE URINAL
[2020-04-19 12:22] LABS: MUCUS STRANDS MODERATE /LPF (Neg); SQUAMOUS EPITHELIAL CELL,UR NONE SEEN /LPF (FEW)
[2020-04-19 12:23] LABS: RBC,URINE 0-2 /HPF (0-2); WBC,URINE 0-4 /HPF (0-4)
[2020-04-19 12:24] LABS: BACTERIA,URINE NONE SEEN /HPF (Neg)
[2020-04-19] MEDS ORDERED: OMEP40CA13 PO (13:09)
[2020-04-19 13:30] VITALS: BP 119/87
== END 2020-04-19 13:31 | disposition home or self-care (01) ==
LOC: ER 09:57
DX: R10.84 Generalized abdominal pain (principal); R10.13 Epigastric pain; R10.9 Unspecified abdominal pain; R11.2 Nausea with vomiting, unspecified; E78.00 Pure hypercholesterolemia, unspecified; K21.9 Gastro-esophageal reflux disease without esophagitis; G89.29 Other chronic pain; Z87.440 Personal history of urinary (tract) infections; F12.90 Cannabis use, unspecified, uncomplicated; Z56.0 Unemployment, unspecified; Z88.6 Allergy status to analgesic agent; Z88.8 Allergy status to other drugs, medicaments and biological substances; Z79.2 Long term (current) use of antibiotics; Z79.899 Other long term (current) drug therapy
CPT/HCPCS: 36415; 76775; 80053; 81001; 83690; 85025; 87088; 96361; 96374; 96375; 96376; 99284; J1885; J2270; J2405; J7030

== ENCOUNTER 2020-04-25 10:47 | Emergency (ER) | payer MEDICAID ==
[~2020-04-25] VITALS: Ht 188 cm; Wt 118.2 kg
[~2020-04-25 10:47] MED LIST changes: +OMEP40CA13 PO
[2020-04-25 11:27] LABS: BASOPHILS % (AUTO) 0.7 % (0-1); EOSINOPHILS # (AUTO) 0.2 X10'3 (0-0.9); EOSINOPHILS % (AUTO) 2.6 % (0-6); HEMATOCRIT 46.8 % (42.0-52.0); HEMOGLOBIN 16.3 g/dl (14.0-17.9); LYMPHOCYTES # (AUTO) 1.3 X10'3 (1.1-4.8); LYMPHOCYTES % (AUTO) 18.8 % (21-51); MEAN CORPUSCULAR HEMOGLOBIN 31.2 PG (27.0-31.0); MEAN CORPUSCULAR HGB CONC 34.9 g/dL (33.0-36.5); MEAN CORPUSCULAR VOLUME 89.5 FL (78-98); MEAN PLATELET VOLUME 9.4 FL (7.4-10.4); MONOCYTES # (AUTO) 0.4 X10'3 (0-0.9); MONOCYTES % (AUTO) 6.3 % (2-12); NEUTROPHILS % (AUTO) 71.6 % (42-75); PLATELET COUNT 197 X10'3 (140-440); RED BLOOD COUNT 5.23 X10'6 (4.70-6.10); RED CELL DISTRIBUTION WIDTH 13.6 % (11.5-14.5); WHITE BLOOD COUNT 6.9 X10'3 (4.5-11.0)
[2020-04-25 11:41] LABS: ALANINE AMINOTRANSFERASE 26 U/L (12-78); ALBUMIN 4.3 G/DL (3.4-5.0); ALBUMIN/GLOBULIN RATIO 1.3 (1.1-1.5); ALKALINE PHOSPHATASE 64 IU/L (46-116); AMYLASE 25 U/L (25-115); ANION GAP 11 (8-16); ASPARTATE AMINO TRANSFERASE 8 U/L (10-37); BILIRUBIN,TOTAL 0.4 MG/DL (0.1-1.0); BLOOD UREA NITROGEN 14 MG/DL (7-18); BUN/CREATININE RATIO 15.1 (5.4-32.0); CALCIUM 8.4 MG/DL (8.5-10.1); CHLORIDE 105 MMOL/L (99-107); CREATININE 0.93 MG/DL (0.60-1.10); GLUCOSE 108 MG/DL (70-104); LIPASE 396 U/L (73-393); POTASSIUM 4.3 MMOL/L (3.5-5.1); SODIUM 139 MMOL/L (135-145); TOTAL CARBON DIOXIDE 23.2 MMOL/L (24-32); TOTAL PROTEIN 7.6 G/DL (6.4-8.2); eGFR 89 ML/MIN
[2020-04-25] MEDS ORDERED: mag hydrox/Alum hydrox/simeth 30ml oral suspension PO ONE (12:35)
[2020-04-25] MEDS ORDERED: ketorolac tromethamine 15mg/ml inj. IV ONE (12:35)
[2020-04-25] MEDS ORDERED: ondansetron/PF 4mg/2ml inj IV ONE (12:35)
[2020-04-25] MEDS ORDERED: LIDOcaine Viscous 15ml cup TP ONE (12:35)
[2020-04-25] MEDS ORDERED: normal saline 1000ML IV soln IVB ONE (12:35)
[2020-04-25] MEDS ORDERED: LIDOcaine Viscous 15ml cup MM ONE (12:40)
[2020-04-25] MEDS: morphine 4 MG/ML inj SYRINge IV PRN ×2 (13:35→14:18)
[2020-04-25 14:01] LABS: CLARITY,URINE CLEAR (Clear); COLOR,URINE YELLOW (Yellow); GLUCOSE, URINE NEGATIVE (Neg); KETONES,URINE NEGATIVE (Neg); LEUKOCYTE ESTERASE ,URINE NEGATIVE (Neg); NITRITES, URINE NEGATIVE (Neg); OCCULT BLOOD,URINE NEGATIVE (Neg); PH,URINE 6.5 (4.8-8.0); PROTEIN,URINE NEGATIVE (Neg); UROBILINOGEN,URINE 0.2 E.U/dL (0.2-1.0)
[2020-04-25 14:03] LABS: UA COLLECTION TYPE URINAL
[2020-04-25] MEDS ORDERED: ONDA4TAB6 PO (14:15)
[2020-04-25 14:19] VITALS: BP 130/81
[2020-04-25] MEDS ORDERED: ONDA4TAB12 PO (14:47)
== END 2020-04-25 14:30 | disposition home or self-care (01) ==
LOC: ER 10:48
DX: G89.29 Other chronic pain (principal); R10.84 Generalized abdominal pain; R11.10 Vomiting, unspecified; K21.9 Gastro-esophageal reflux disease without esophagitis; E78.00 Pure hypercholesterolemia, unspecified; Z87.440 Personal history of urinary (tract) infections; F12.90 Cannabis use, unspecified, uncomplicated; Z56.0 Unemployment, unspecified; Z88.6 Allergy status to analgesic agent; Z88.8 Allergy status to other drugs, medicaments and biological substances; Z79.2 Long term (current) use of antibiotics; Z79.899 Other long term (current) drug therapy
CPT/HCPCS: 36415; 80053; 81003; 82150; 83690; 85025; 96361; 96374; 96375; 96376; 99284; J1885; J2270; J2405; J7030

== ENCOUNTER 2020-04-30 10:49 | Emergency (ER) | payer MEDICAID ==
[~2020-04-30] VITALS: Ht 188 cm; Wt 120.5 kg
[2020-04-30] MEDS ORDERED: dicyclomine 10 MG capsule PO ONE (13:55)
[2020-04-30] MEDS ORDERED: LIDOcaine Viscous 15ml cup MM PRN (13:55)
[2020-04-30] MEDS ORDERED: ketorolac tromethamine 15mg/ml inj. IM ONE (13:55)
[2020-04-30] MEDS ORDERED: ondansetron 4mg rapidly disintigrating tab PO ONE (13:55)
[2020-04-30] MEDS ORDERED: mag hydrox/Alum hydrox/simeth 30ml oral suspension PO ONE (13:55)
[2020-04-30] MEDS ORDERED: acetaminophen 325mg tablet PO ONE (13:55)
[2020-04-30] MEDS ORDERED: methyl salicylate/menthol cream 57gm TP ONE (14:05)
[2020-04-30] MEDS ORDERED: diphenhydrAMINE 25mg capsule PO ONE (14:05)
[2020-04-30 14:35] VITALS: BP 134/74
--- NOTE | 2020-04-30 14:47 | NUR ---
NO PAIN RELIEF WITH MAALOX.
--- NOTE | 2020-04-30 15:06 | NUR ---
NO RELIEF WITH TORADOL, REFUSING BENTYL, STATES:MAKES MY BOWELS STOP AND THEN CRAMPING WHEN THEY START MOVING
--- NOTE | 2020-04-30 15:07 | NUR ---
PATIENT STATES HE DOESNT WANT TO TRY ANY OF THE OTHER MEDS. WILL NOTIFY PROVIDER.
[2020-05-01] MEDS ORDERED: pantoprazole 40mg Tablet.DR PO SCH (07:30)
== END 2020-04-30 15:18 | disposition home or self-care (01) ==
LOC: ER 10:50
DX: G89.29 Other chronic pain (principal); R10.9 Unspecified abdominal pain; E78.00 Pure hypercholesterolemia, unspecified; K21.9 Gastro-esophageal reflux disease without esophagitis; Z87.440 Personal history of urinary (tract) infections; F12.90 Cannabis use, unspecified, uncomplicated; Z56.0 Unemployment, unspecified; Z88.8 Allergy status to other drugs, medicaments and biological substances; Z79.899 Other long term (current) drug therapy
CPT/HCPCS: 96372; 99283; J1885

== ENCOUNTER 2020-05-18 10:52 | Emergency (ER) | payer MEDICAID ==
[~2020-05-18] VITALS: Ht 188 cm; Wt 119.0 kg
[2020-05-18 11:29] LABS: BASOPHILS % (AUTO) 0.4 % (0-1); EOSINOPHILS # (AUTO) 0.1 X10'3 (0-0.9); EOSINOPHILS % (AUTO) 1.9 % (0-6); HEMATOCRIT 44.6 % (42.0-52.0); HEMOGLOBIN 15.8 g/dl (14.0-17.9); LYMPHOCYTES # (AUTO) 1.1 X10'3 (1.1-4.8); LYMPHOCYTES % (AUTO) 14.6 % (21-51); MEAN CORPUSCULAR HEMOGLOBIN 31.4 PG (27.0-31.0); MEAN CORPUSCULAR HGB CONC 35.4 g/dL (33.0-36.5); MEAN CORPUSCULAR VOLUME 88.8 FL (78-98); MEAN PLATELET VOLUME 9.4 FL (7.4-10.4); MONOCYTES # (AUTO) 0.4 X10'3 (0-0.9); MONOCYTES % (AUTO) 5.4 % (2-12); NEUTROPHILS # (AUTO) 6.1 X10'3 (1.8-7.7); NEUTROPHILS % (AUTO) 77.7 % (42-75); PLATELET COUNT 189 X10'3 (140-440); RED BLOOD COUNT 5.03 X10'6 (4.70-6.10); RED CELL DISTRIBUTION WIDTH 13.3 % (11.5-14.5); WHITE BLOOD COUNT 7.9 X10'3 (4.5-11.0)
[2020-05-18 11:48] LABS: ALANINE AMINOTRANSFERASE 22 U/L (12-78); ALBUMIN 4.3 G/DL (3.4-5.0); ALBUMIN/GLOBULIN RATIO 1.3 (1.1-1.5); ALKALINE PHOSPHATASE 62 IU/L (46-116); ANION GAP 11 (8-16); ASPARTATE AMINO TRANSFERASE 12 U/L (10-37); BILIRUBIN,TOTAL 0.4 MG/DL (0.1-1.0); BLOOD UREA NITROGEN 13 MG/DL (7-18); CALCIUM 8.8 MG/DL (8.5-10.1); CHLORIDE 106 MMOL/L (99-107); CREATININE 0.93 MG/DL (0.60-1.10); GLUCOSE 111 MG/DL (70-104); LIPASE 267 U/L (73-393); POTASSIUM 4.2 MMOL/L (3.5-5.1); SODIUM 139 MMOL/L (135-145); TOTAL CARBON DIOXIDE 21.9 MMOL/L (24-32); TOTAL PROTEIN 7.5 G/DL (6.4-8.2); eGFR 89 ML/MIN
[2020-05-18] MEDS ORDERED: LORazepam 2 mg/ml vial IV ONE (11:50)
[2020-05-18] MEDS ORDERED: morphine 4 MG/ML inj SYRINge IV ONE ×2 (11:50→13:00)
[2020-05-18] MEDS ORDERED: ondansetron/PF 4mg/2ml inj IV ONE (11:50)
[2020-05-18] MEDS ORDERED: pantoprazole 40 MG vial IV ONE (11:50)
[2020-05-18] MEDS ORDERED: normal saline 1000ML IV soln IVB ONE (11:50)
[2020-05-18 13:24] VITALS: BP 123/60
== END 2020-05-18 13:27 | disposition home or self-care (01) ==
LOC: ER 10:52
DX: G89.29 Other chronic pain (principal); R10.12 Left upper quadrant pain; R11.2 Nausea with vomiting, unspecified; E78.00 Pure hypercholesterolemia, unspecified; K21.9 Gastro-esophageal reflux disease without esophagitis; F12.90 Cannabis use, unspecified, uncomplicated; Z87.440 Personal history of urinary (tract) infections; Z56.0 Unemployment, unspecified; Z79.899 Other long term (current) drug therapy; Z88.6 Allergy status to analgesic agent; Z88.8 Allergy status to other drugs, medicaments and biological substances
CPT/HCPCS: 36415; 80053; 83690; 85025; 96361; 96374; 96375; 96376; 99284; C9113; J2060; J2270; J2405; J7030

== ENCOUNTER 2020-05-22 10:19 | Emergency (ER) | payer MEDICAID ==
[~2020-05-22] VITALS: Ht 188 cm; Wt 119.8 kg
[~2020-05-22 10:19] MED LIST changes: -OMEP40CA13 PO
[2020-05-22 10:59] LABS: BASOPHILS % (AUTO) 0.5 % (0-1); EOSINOPHILS # (AUTO) 0.2 X10'3 (0-0.9); EOSINOPHILS % (AUTO) 2.5 % (0-6); HEMATOCRIT 48.4 % (42.0-52.0); HEMOGLOBIN 16.8 g/dl (14.0-17.9); LYMPHOCYTES # (AUTO) 1.5 X10'3 (1.1-4.8); LYMPHOCYTES % (AUTO) 20.7 % (21-51); MEAN CORPUSCULAR HEMOGLOBIN 31.2 PG (27.0-31.0); MEAN CORPUSCULAR HGB CONC 34.7 g/dL (33.0-36.5); MONOCYTES # (AUTO) 0.5 X10'3 (0-0.9); MONOCYTES % (AUTO) 6.7 % (2-12); NEUTROPHILS % (AUTO) 69.6 % (42-75); PLATELET COUNT 214 X10'3 (140-440); RED BLOOD COUNT 5.38 X10'6 (4.70-6.10); RED CELL DISTRIBUTION WIDTH 13.5 % (11.5-14.5); WHITE BLOOD COUNT 7.2 X10'3 (4.5-11.0)
[2020-05-22] MEDS ORDERED: ketorolac trometh. 30mg/ml inj. IM ONE (11:05)
[2020-05-22 11:34] LABS: ALANINE AMINOTRANSFERASE 20 U/L (12-78); ALBUMIN 4.4 G/DL (3.4-5.0); ALBUMIN/GLOBULIN RATIO 1.3 (1.1-1.5); ALKALINE PHOSPHATASE 70 IU/L (46-116); ANION GAP 11 (8-16); ASPARTATE AMINO TRANSFERASE 16 U/L (10-37); BILIRUBIN,TOTAL 0.6 MG/DL (0.1-1.0); BLOOD UREA NITROGEN 13 MG/DL (7-18); BUN/CREATININE RATIO 12.1 (5.4-32.0); CALCIUM 9.3 MG/DL (8.5-10.1); CHLORIDE 106 MMOL/L (99-107); CREATININE 1.07 MG/DL (0.60-1.10); GLUCOSE 118 MG/DL (70-104); LIPASE 191 U/L (73-393); POTASSIUM 3.9 MMOL/L (3.5-5.1); SODIUM 141 MMOL/L (135-145); TOTAL CARBON DIOXIDE 23.9 MMOL/L (24-32); TOTAL PROTEIN 7.9 G/DL (6.4-8.2); eGFR 76 ML/MIN
[2020-05-22] MEDS ORDERED: HYDROcodone/acetaminophen 5mg/325mg tablet PO ONE (11:45)
[2020-05-22] MEDS ORDERED: ondansetron 4mg rapidly disintigrating tab PO ONE (11:45)
== END 2020-05-22 12:13 | disposition home or self-care (01) ==
LOC: ER 10:20
DX: G89.29 Other chronic pain (principal); R10.9 Unspecified abdominal pain; F12.90 Cannabis use, unspecified, uncomplicated; E78.00 Pure hypercholesterolemia, unspecified; K21.9 Gastro-esophageal reflux disease without esophagitis; Z88.6 Allergy status to analgesic agent; Z88.8 Allergy status to other drugs, medicaments and biological substances; Z79.899 Other long term (current) drug therapy; Z87.440 Personal history of urinary (tract) infections; Z56.0 Unemployment, unspecified
CPT/HCPCS: 36415; 80053; 83690; 85025; 99283; J1885

== ENCOUNTER 2020-05-26 08:33 | Emergency (ER) | payer MEDICAID ==
[~2020-05-26] VITALS: Ht 188 cm; Wt 118.2 kg
[2020-05-26] MEDS ORDERED: HYDROcodone/acetaminophen 5mg/325mg tablet PO ONE (09:10)
[2020-05-26] MEDS ORDERED: ondansetron 4mg rapidly disintigrating tab PO ONE (09:10)
[2020-05-26 09:23] VITALS: BP 118/77
== END 2020-05-26 09:35 | disposition home or self-care (01) ==
LOC: ER 08:34
DX: R10.13 Epigastric pain (principal); G89.29 Other chronic pain; E78.00 Pure hypercholesterolemia, unspecified; K21.9 Gastro-esophageal reflux disease without esophagitis; F41.9 Anxiety disorder, unspecified; F12.90 Cannabis use, unspecified, uncomplicated; Z87.440 Personal history of urinary (tract) infections; Z98.890 Other specified postprocedural states; Z56.0 Unemployment, unspecified; Z88.6 Allergy status to analgesic agent; Z88.8 Allergy status to other drugs, medicaments and biological substances; Z79.899 Other long term (current) drug therapy
CPT/HCPCS: 99283

== ENCOUNTER 2020-05-30 08:50 | Emergency (ER) | payer MEDICAID ==
[~2020-05-30] VITALS: Ht 188 cm; Wt 117.0 kg
[2020-05-30 08:54] VITALS: BP 149/81
[2020-05-30] MEDS ORDERED: normal saline 1000ML IV soln IVB ONE (09:05)
[2020-05-30] MEDS ORDERED: ondansetron/PF 4mg/2ml inj IV ONE (09:05)
[2020-05-30 09:32] LABS: BASOPHILS % (AUTO) 0.4 % (0-1); EOSINOPHILS # (AUTO) 0.2 X10'3 (0-0.9); EOSINOPHILS % (AUTO) 1.9 % (0-6); HEMATOCRIT 48.5 % (42.0-52.0); HEMOGLOBIN 16.8 g/dl (14.0-17.9); LYMPHOCYTES # (AUTO) 1.6 X10'3 (1.1-4.8); LYMPHOCYTES % (AUTO) 19.3 % (21-51); MEAN CORPUSCULAR HEMOGLOBIN 31.2 PG (27.0-31.0); MEAN CORPUSCULAR HGB CONC 34.8 g/dL (33.0-36.5); MEAN CORPUSCULAR VOLUME 89.7 FL (78-98); MEAN PLATELET VOLUME 9.1 FL (7.4-10.4); MONOCYTES # (AUTO) 0.5 X10'3 (0-0.9); MONOCYTES % (AUTO) 5.7 % (2-12); NEUTROPHILS # (AUTO) 6.1 X10'3 (1.8-7.7); NEUTROPHILS % (AUTO) 72.7 % (42-75); PLATELET COUNT 232 X10'3 (140-440); RED CELL DISTRIBUTION WIDTH 13.6 % (11.5-14.5); WHITE BLOOD COUNT 8.4 X10'3 (4.5-11.0)
[2020-05-30 09:46] LABS: ALANINE AMINOTRANSFERASE 23 U/L (12-78); ALBUMIN 4.6 G/DL (3.4-5.0); ALBUMIN/GLOBULIN RATIO 1.4 (1.1-1.5); ALKALINE PHOSPHATASE 64 IU/L (46-116); ANION GAP 13 (8-16); ASPARTATE AMINO TRANSFERASE 12 U/L (10-37); BILIRUBIN,TOTAL 0.8 MG/DL (0.1-1.0); BLOOD UREA NITROGEN 13 MG/DL (7-18); BUN/CREATININE RATIO 12.1 (5.4-32.0); CALCIUM 9.2 MG/DL (8.5-10.1); CHLORIDE 107 MMOL/L (99-107); CREATININE 1.07 MG/DL (0.60-1.10); GLUCOSE 127 MG/DL (70-104); SODIUM 142 MMOL/L (135-145); TOTAL CARBON DIOXIDE 21.8 MMOL/L (24-32); eGFR 76 ML/MIN
[2020-05-30 09:49] LABS: LIPASE 232 U/L (73-393)
[2020-05-30] MEDS ORDERED: ketorolac trometh. 30mg/ml inj. IV ONE (10:20)
[2020-05-30 10:42] LABS: CLARITY,URINE CLEAR (Clear); COLOR,URINE YELLOW (Yellow); GLUCOSE, URINE NEGATIVE (Neg); KETONES,URINE NEGATIVE (Neg); LEUKOCYTE ESTERASE ,URINE NEGATIVE (Neg); NITRITES, URINE NEGATIVE (Neg); OCCULT BLOOD,URINE NEGATIVE (Neg); PROTEIN,URINE NEGATIVE (Neg); UROBILINOGEN,URINE 0.2 E.U/dL (0.2-1.0)
[2020-05-30 10:43] LABS: UA COLLECTION TYPE URINAL
[2020-05-30 10:55] LABS: URINE AMPHETAMINE SCREEN NEGATIVE (Neg); URINE BARBITUATE SCREEN NEGATIVE (Neg); URINE BENZODIAZEPINES SCREEN NEGATIVE (Neg); URINE CANNABINOID SCREEN POSITIVE (Neg); URINE COCAINE SCREEN NEGATIVE (Neg); URINE METHADONE SCREEN NEGATIVE (Neg); URINE OPIATE SCREEN NEGATIVE (Neg); URINE PHENCYCLIDINE SCREEN NEGATIVE (Neg)
[2020-05-30] MEDS ORDERED: ketamine 10mg/ml 20ml inj 0 MG in normal saline 100ml IV soln 100 ML IV ONE (10:55)
== END 2020-05-30 11:47 | disposition home or self-care (01) ==
LOC: ER 08:50
DX: R10.84 Generalized abdominal pain (principal); R11.2 Nausea with vomiting, unspecified; M54.5 Low back pain; Z76.5 Malingerer [conscious simulation]; E78.00 Pure hypercholesterolemia, unspecified; K21.9 Gastro-esophageal reflux disease without esophagitis; Z87.440 Personal history of urinary (tract) infections; G89.29 Other chronic pain; F41.9 Anxiety disorder, unspecified; F12.90 Cannabis use, unspecified, uncomplicated; Z56.0 Unemployment, unspecified; Z88.6 Allergy status to analgesic agent; Z88.8 Allergy status to other drugs, medicaments and biological substances; Z79.2 Long term (current) use of antibiotics; Z79.899 Other long term (current) drug therapy
CPT/HCPCS: 36415; 76775; 80053; 80305; 81003; 83690; 84484; 85025; 93005; 96361; 96374; 96375; 99285; J1885; J2405; J7030

== ENCOUNTER 2020-06-12 09:31 | Emergency (ER) | payer MEDICAID ==
[~2020-06-12] VITALS: Ht 188 cm; Wt 140.0 kg
[2020-06-12] MEDS ORDERED: ondansetron/PF 4mg/2ml inj IV ONE ×2 (11:40→13:00)
[2020-06-12] MEDS ORDERED: morphine 4 MG/ML inj SYRINge IV PRN (11:40)
[2020-06-12] MEDS ORDERED: normal saline 1000ML IV soln IVB ONE (11:40)
[2020-06-12 12:16] LABS: BASOPHILS % (AUTO) 0.2 % (0-1); EOSINOPHILS % (AUTO) 0.1 % (0-6); HEMATOCRIT 46.1 % (42.0-52.0); LYMPHOCYTES # (AUTO) 0.7 X10'3 (1.1-4.8); LYMPHOCYTES % (AUTO) 5.8 % (21-51); MEAN CORPUSCULAR HGB CONC 34.6 g/dL (33.0-36.5); MEAN CORPUSCULAR VOLUME 89.5 FL (78-98); MEAN PLATELET VOLUME 9.2 FL (7.4-10.4); MONOCYTES # (AUTO) 0.3 X10'3 (0-0.9); MONOCYTES % (AUTO) 2.3 % (2-12); NEUTROPHILS # (AUTO) 10.9 X10'3 (1.8-7.7); NEUTROPHILS % (AUTO) 91.6 % (42-75); PLATELET COUNT 215 X10'3 (140-440); RED BLOOD COUNT 5.15 X10'6 (4.70-6.10); RED CELL DISTRIBUTION WIDTH 13.5 % (11.5-14.5); WHITE BLOOD COUNT 11.9 X10'3 (4.5-11.0)
[2020-06-12 12:32] LABS: ALANINE AMINOTRANSFERASE 27 U/L (12-78); ALBUMIN 4.3 G/DL (3.4-5.0); ALBUMIN/GLOBULIN RATIO 1.3 (1.1-1.5); ALKALINE PHOSPHATASE 67 IU/L (46-116); ANION GAP 12 (8-16); ASPARTATE AMINO TRANSFERASE 16 U/L (10-37); BILIRUBIN,TOTAL 0.6 MG/DL (0.1-1.0); BLOOD UREA NITROGEN 13 MG/DL (7-18); CALCIUM 8.9 MG/DL (8.5-10.1); CHLORIDE 105 MMOL/L (99-107); CREATININE 0.93 MG/DL (0.60-1.10); GLUCOSE 114 MG/DL (70-104); LIPASE 279 U/L (73-393); SODIUM 140 MMOL/L (135-145); TOTAL CARBON DIOXIDE 22.8 MMOL/L (24-32); TOTAL PROTEIN 7.5 G/DL (6.4-8.2); eGFR 89 ML/MIN
[2020-06-12] MEDS ORDERED: DICY10CA88 PO (13:00)
[2020-06-12] MEDS ORDERED: HYDROmorphone 1 mg/ml syringe IV ONE (13:00)
[2020-06-12] MEDS ORDERED: dicyclomine 10 MG capsule PO ONE (13:00)
[2020-06-12 13:48] VITALS: BP 140/90
== END 2020-06-12 13:49 | disposition home or self-care (01) ==
LOC: ER 09:32
DX: G89.29 Other chronic pain (principal); R10.84 Generalized abdominal pain; R11.2 Nausea with vomiting, unspecified; E78.00 Pure hypercholesterolemia, unspecified; K21.9 Gastro-esophageal reflux disease without esophagitis; F41.9 Anxiety disorder, unspecified; F12.90 Cannabis use, unspecified, uncomplicated; Z87.440 Personal history of urinary (tract) infections; Z98.890 Other specified postprocedural states; Z56.0 Unemployment, unspecified; Z88.8 Allergy status to other drugs, medicaments and biological substances; Z79.899 Other long term (current) drug therapy
CPT/HCPCS: 36415; 74176; 80053; 83605; 83690; 85025; 96361; 96374; 96375; 99284; J1170; J2270; J2405; J7030

== ENCOUNTER 2020-06-14 07:47 | Inpatient (IN) | payer MEDICAID ==
[~2020-06-14] VITALS: Ht 188 cm; Wt 140.0 kg
[2020-06-14] MEDS ORDERED: ketorolac tromethamine 15mg/ml inj. IV ONE ×2 (07:55→08:30)
[2020-06-14] MEDS ORDERED: ondansetron/PF 4mg/2ml inj IV ONE ×3 (07:55→09:10)
[2020-06-14] MEDS ORDERED: dicyclomine 10mg/ml 2ml ampule IM ONE ×2 (07:55→08:30)
[2020-06-14] MEDS ORDERED: ondansetron 4mg rapidly disintigrating tab PO ONE (08:25)
[2020-06-14] MEDS ORDERED: ketorolac trometh inj. 60 MG/2 ML VIAL IM ONE (08:25)
[2020-06-14] MEDS ORDERED: morphine 4 MG/ML inj SYRINge IV ONE (09:10)
[2020-06-14] MEDS ORDERED: HYDROmorphone 1 mg/ml syringe IV ONE ×2 (09:30→12:20)
[2020-06-14] MEDS ORDERED: LORazepam 2 mg/ml vial IV ONE (09:30)
[2020-06-14 10:04] LABS: H PYLORI ANTIBODY NEGATIVE (Neg)
[2020-06-14] MEDS: diatr meglu/diatrizoate 30ml oral sol.-(3 dose) bottle PO SCH ×3 (10:32→11:56)
[2020-06-14] MEDS ORDERED: iohexol 300mg/ml 100ml inj. ONE (11:30)
--- NOTE | 2020-06-14 11:56 | NUR ---
PT GIVEN 3RD DOSE OF GASTROVIEW AND TAKEN TO CT VIA W/C.
--- NOTE | 2020-06-14 12:12 | NUR ---
PT BROUGHT BACK FROM CT.
--- NOTE | 2020-06-14 12:36 | NUR ---
PT'S AT BEDSIDE.
[2020-06-14] MEDS ORDERED: haloperidol lactate 5mg/ml inj IM ONE (12:45)
--- NOTE | 2020-06-14 13:03 | NUR ---
PATIENT REFUSED HALDOL.DR. CARSON MADE AWARE.
[2020-06-14] MEDS ORDERED: pantoprazole 40 MG vial IV ONE (13:50)
[2020-06-14] MEDS ORDERED: hyoscyamine 0.125mg TAB.SUBL SL ONE ×2 (13:50)
[2020-06-14] MEDS ORDERED: potassium Cl 40MEQ/1/2NS 520ml 520 ML IV PRN ×2 (14:20)
[2020-06-14] MEDS ORDERED: magnesium 4gm in 100ml NS 100 ML IV PRN (14:20)
[2020-06-14] MEDS ORDERED: acetaminophen 325mg tablet PO PRN ×2 (14:20)
[2020-06-14] MEDS ORDERED: potassium Cl 20 mEq SR tablet PO PRN ×2 (14:20)
[2020-06-14] MEDS ORDERED: HYDROcodone/acetaminophen 5mg/325mg tablet PO PRN (14:20)
[2020-06-14] MEDS ORDERED: magnesium hydroxide 30ml (MOM) UD suspension PO PRN (14:20)
[2020-06-14] MEDS ORDERED: magnesium 2GM in 50ml NS 50 ML IV PRN (14:20)
[2020-06-14] MEDS ORDERED: mag hydrox/Alum hydrox/simeth 30ml oral suspension PO PRN (14:20)
[2020-06-14 14:37] LABS: BASOPHILS % (AUTO) 0.2 % (0-1); EOSINOPHILS % (AUTO) 0.1 % (0-6); HEMATOCRIT 45.3 % (42.0-52.0); HEMOGLOBIN 15.6 g/dl (14.0-17.9); LYMPHOCYTES # (AUTO) 1.5 X10'3 (1.1-4.8); LYMPHOCYTES % (AUTO) 14.5 % (21-51); MEAN CORPUSCULAR HEMOGLOBIN 31.1 PG (27.0-31.0); MEAN CORPUSCULAR HGB CONC 34.6 g/dL (33.0-36.5); MEAN PLATELET VOLUME 9.1 FL (7.4-10.4); MONOCYTES # (AUTO) 0.5 X10'3 (0-0.9); NEUTROPHILS # (AUTO) 8.3 X10'3 (1.8-7.7); NEUTROPHILS % (AUTO) 80.2 % (42-75); PLATELET COUNT 204 X10'3 (140-440); RED BLOOD COUNT 5.03 X10'6 (4.70-6.10); RED CELL DISTRIBUTION WIDTH 13.5 % (11.5-14.5); WHITE BLOOD COUNT 10.3 X10'3 (4.5-11.0)
[2020-06-14] MEDS ORDERED: PANT40TA54 PO (14:38)
[2020-06-14] MEDS ORDERED: DICY10CA88 PO (14:41)
[2020-06-14 14:57] LABS: ALANINE AMINOTRANSFERASE 21 U/L (12-78); ALBUMIN 4.3 G/DL (3.4-5.0); ALBUMIN/GLOBULIN RATIO 1.4 (1.1-1.5); ALKALINE PHOSPHATASE 65 IU/L (46-116); ANION GAP 14 (8-16); ASPARTATE AMINO TRANSFERASE 12 U/L (10-37); BILIRUBIN,TOTAL 0.6 MG/DL (0.1-1.0); BLOOD UREA NITROGEN 12 MG/DL (7-18); BUN/CREATININE RATIO 12.9 (5.4-32.0); CALCIUM 8.7 MG/DL (8.5-10.1); CHLORIDE 105 MMOL/L (99-107); CREATININE 0.93 MG/DL (0.60-1.10); GLUCOSE 103 MG/DL (70-104); SODIUM 141 MMOL/L (135-145); TOTAL PROTEIN 7.4 G/DL (6.4-8.2); eGFR 89 ML/MIN
[2020-06-14 14:58] LABS: LIPASE 134 U/L (73-393)
[2020-06-14] MEDS: HYDROcodone/acetaminophen 10/325mg tab PO PRN ×2 (15:17→21:49)
[2020-06-14] MEDS: normal saline 1000ml 1,000 ML IV SCH ×2 (15:23→19:41)
--- NOTE | 2020-06-14 16:37 | NUR ---
PATIENT REQUESTING PRN BREAKTHROUGH PAIN,PAGED DR. ORTIZ.
--- NOTE | 2020-06-14 18:47 | NUR ---
IP[facility] 348B, REPORT GIVEN TO [facility]. PT WITH STABLE VS. PT ONLY HAS PO NORCO FOR PAIN. PAGED MESSAGE SENT TO DR. ORTIZ TO REQUEST PRN IV PAIN MEDS FOR SEVERE PAIN. PT IS POLITE AND COOPERATIVE ALLEGRY BAND PLACED. PT UPDATED THAT WE NEED STOOL SAMPLE WHEN HE NEXT HAS BM.
[2020-06-14] MEDS ORDERED: morphine 2 MG/ML inj. syringe IV PRN (18:50)
--- NOTE | 2020-06-14 18:50 | NUR ---
VERBAL FROM DR. ORTIZ FOR MORPHINE 1 MG IV Q6HR PRN SEVERE PAIN.
--- NOTE | 2020-06-14 19:10 | NUR ---
Patient in room [facility]. I have received report from Elaine CORNELL in the ER and had the opportunity to ask questions and assume patient care. Pt arrived on the unit via wheelchair with his personal belongings and a visitor. Pt has no signs of distress, will continue to monitor.
[2020-06-14 20:00] VITALS: BP 118/85
[2020-06-14] MEDS: K and/or MAG REPLACEMENT MC SCH (20:00)
[2020-06-14] MEDS ORDERED: enoxaparin 40mg/0.4ml syringe SQ SCH (20:00)
[2020-06-14] MEDS ORDERED: amitriptyline 25mg tablet PO SCH (21:00)
[2020-06-14] MEDS: ondansetron/PF 4mg/2ml inj IV PRN (21:39)
--- NOTE | 2020-06-14 21:40 | NUR ---
Pt refused amitriptyline. Stated its not one of his regular medications and doesn't want to take it. Educated pt as to reasons medication was ordered, pt still refused.
[2020-06-14] MEDS: morphine 2 MG/ML inj. syringe IV PRN (23:45)
--- NOTE | 2020-06-14 23:45 | NUR ---
Entered pt room to give pain meds and pt IVF turned off. Questioned pt regarding the pump being off since it was the third time I had found it off. Pt stated the normal saline is making him nauseous even with zofran and he is refusing to have it turned on.
[2020-06-15 00:29] VITALS: BP 113/73
--- NOTE | 2020-06-15 06:52 | NUR ---
Problems reprioritized. Patient report given, questions answered & plan of care reviewed with Bindu CORNELL.
[2020-06-15 07:29] VITALS: BP 152/79
[2020-06-15 07:44] LABS: BASOPHILS % (AUTO) 0.8 % (0-1); EOSINOPHILS # (AUTO) 0.2 X10'3 (0-0.9); HEMATOCRIT 41.6 % (42.0-52.0); HEMOGLOBIN 14.6 g/dl (14.0-17.9); LYMPHOCYTES # (AUTO) 1.8 X10'3 (1.1-4.8); MEAN CORPUSCULAR HEMOGLOBIN 31.4 PG (27.0-31.0); MEAN CORPUSCULAR VOLUME 89.6 FL (78-98); MEAN PLATELET VOLUME 8.9 FL (7.4-10.4); MONOCYTES # (AUTO) 0.5 X10'3 (0-0.9); MONOCYTES % (AUTO) 8.9 % (2-12); NEUTROPHILS # (AUTO) 2.9 X10'3 (1.8-7.7); NEUTROPHILS % (AUTO) 53.3 % (42-75); PLATELET COUNT 170 X10'3 (140-440); RED BLOOD COUNT 4.64 X10'6 (4.70-6.10); RED CELL DISTRIBUTION WIDTH 13.7 % (11.5-14.5); WHITE BLOOD COUNT 5.5 X10'3 (4.5-11.0)
[2020-06-15 07:58] LABS: ALANINE AMINOTRANSFERASE 22 U/L (12-78); ALBUMIN 3.8 G/DL (3.4-5.0); ALBUMIN/GLOBULIN RATIO 1.4 (1.1-1.5); ALKALINE PHOSPHATASE 58 IU/L (46-116); ANION GAP 13 (8-16); ASPARTATE AMINO TRANSFERASE 14 U/L (10-37); BLOOD UREA NITROGEN 12 MG/DL (7-18); BUN/CREATININE RATIO 13.5 (5.4-32.0); CALCIUM 8.6 MG/DL (8.5-10.1); CHLORIDE 107 MMOL/L (99-107); CHOL/HDL RATIO 4.9 (0.00-4.99); CHOLESTEROL 177 MG/DL (0-200); CREATININE 0.89 MG/DL (0.60-1.10); GLUCOSE 92 MG/DL (70-104); HDL CHOLESTEROL 36 MG/DL (35-60); LDL CHOLESTEROL 120 MG/DL (50-100); POTASSIUM 3.6 MMOL/L (3.5-5.1); SODIUM 144 MMOL/L (135-145); TOTAL PROTEIN 6.6 G/DL (6.4-8.2); TRIGLYCERIDES 142 MG/DL (20-135); eGFR > 90 ML/MIN
[2020-06-15] MEDS: K and/or MAG REPLACEMENT MC SCH (08:00)
[2020-06-15] MEDS ORDERED: pneumococcal 23-VAL P-sac vacc 25 mcg/0.5ml vial IMVAC ONE (08:00)
[2020-06-15] MEDS ORDERED: FLU VACC QS2020-21(6MOS UP)/PF 60 MCG/0.5 ML SYRINGE IMVAC ONE (08:00)
[2020-06-15] MEDS: morphine 2 MG/ML inj. syringe IV PRN ×3 (08:36→14:50)
--- NOTE | 2020-06-15 10:15 | NUR ---
PAGER ID: [phone] MESSAGE: Pt. Valverde Summer in 348B c/o burning on urination. Fowl, ever colored urine small amount. Ok to send to lab for UA? Bindu [id number]
[2020-06-15 10:38] LABS: CLARITY,URINE CLEAR (Clear); COLOR,URINE YELLOW (Yellow); GLUCOSE, URINE NEGATIVE (Neg); KETONES,URINE TRACE mg/dl (Neg); LEUKOCYTE ESTERASE ,URINE NEGATIVE (Neg); NITRITES, URINE NEGATIVE (Neg); OCCULT BLOOD,URINE NEGATIVE (Neg); PH,URINE 6.5 (4.8-8.0); PROTEIN,URINE NEGATIVE (Neg)
[2020-06-15 11:09] LABS: UA COLLECTION TYPE CLN CATCH MIDSTREAM
[2020-06-15 12:14] VITALS: BP 117/65
[2020-06-15] MEDS ORDERED: dicyclomine 10 MG capsule PO PRN (13:10)
[2020-06-15] MEDS ORDERED: HYDROmorphone 1 mg/ml syringe IV PRN (15:25)
[2020-06-15] MEDS: normal saline 1000ml 1,000 ML IV SCH (17:21)
[2020-06-15] MEDS: ondansetron/PF 4mg/2ml inj IV PRN (17:32)
--- NOTE | 2020-06-15 19:00 | NUR ---
Patient in room [facility]. I have received report from Bindu CORNELL and had the opportunity to ask questions and assume patient care.
--- NOTE | 2020-06-15 19:04 | NUR ---
PAGER ID: [phone] MESSAGE: [facility] [id number] Re: Rai. Patient wanting to leave AMA please call Addendum: 06/15/20 at 1907 by Lala Thapa RN Dr Licea aware of the above information. Dr Licea would like patient to stay because he has an EDG scheduled for in the morning and if patient leaves AMA he will end up back here again starting over. Also, he is aware patient had pain medications at 1730 so patient can't leave until at lease 2130 due to narcatics. Patient is aware with girlfriend at bedside who can not drive. Patient was wanting to leave AMA because his sitter is going to leave and he has 4 children at home. Patient stated he will think about it for a minute then turn on his call light and let us know. Primary RN Maris aware.
--- NOTE | 2020-06-15 19:07 | NUR ---
Gave report to Maris CORNELL.
[2020-06-15 20:00] VITALS: BP 144/81
--- NOTE | 2020-06-15 21:30 | NUR ---
Pt decided that he wanted to go AMA. Dr. Licea came to pt room and again advised pt that he has an EGD scheduled for the morning and that he really should stay to try and find and answer for his consistent pain. Pt adamant about leaving. IV removed, AMA form signed, all pt belongings placed in belongings bag and pt taken to the lobby via wheelchair. Pt had no signs of distress at the time he left.
[2020-06-16] MEDS ORDERED: atorvastatin 20mg tablet PO SCH (08:00)
[2020-06-16] MEDS ORDERED: FLU VACC QS2020-21(6MOS UP)/PF 60 MCG/0.5 ML SYRINGE IMVAC ONE (08:00)
== END 2020-06-15 21:27 | disposition left against medical advice (07) | DRG 249 ==
LOC: ER 07:47 → ED HOLD 14:18 → SUR 3N 19:02
PROVIDERS: ADMIT Family Medicine; ATTEND Family Medicine
PROC: BW211ZZ Computerized Tomography (CT Scan) of Abdomen and Pelvis using Low Osmolar Contrast (ICD-10-PCS; principal; 2020-06-14)
DX: K52.9 Noninfective gastroenteritis and colitis, unspecified (principal); E78.5 Hyperlipidemia, unspecified; F12.90 Cannabis use, unspecified, uncomplicated; E78.00 Pure hypercholesterolemia, unspecified; F41.9 Anxiety disorder, unspecified; G89.29 Other chronic pain; K21.9 Gastro-esophageal reflux disease without esophagitis; Z83.3 Family history of diabetes mellitus; Z91.14 Patient's other noncompliance with medication regimen; Z87.440 Personal history of urinary (tract) infections; Z53.29 Procedure and treatment not carried out because of patient's decision for other reasons
CPT/HCPCS: 36415; 74177; 80053; 80061; 81003; 83690; 83735; 85025; 85651; 86140; 86677; 87081; 90732; 96372; 96374; 96375; 96376; 99285; C9113; G0378; J0500; J1170; J1650; J1885; J2060; J2270; J2405; J7030; Q9963; Q9967

== ENCOUNTER 2020-07-07 10:55 | Emergency (ER) | payer MEDICAID ==
[~2020-07-07] VITALS: Ht 188 cm; Wt 113.6 kg
[~2020-07-07 10:55] MED LIST changes: -BISM-64 PO; -COROTSUS OT; -DIPH-186 PO; -FLUT16SP10; -MELO-100 PO; -METO-292 PO; -METO5TAB98 PO; -OMEP20TA5 PO; -ONDA4TAB12 PO; -ONDA4TAB6 PO; -ONDA4TAB9 PO; -ONDA8TAB6 PO; -ONDA8TAB9 PO; -PANT-47 PO; -PANT20TA2 PO; +PANT40TA54 PO; -POLY119P2 PO; -POLY255P19 PO; -SUCR1ORA2 PO
[2020-07-07 10:58] VITALS: BP 122/95
== END 2020-07-07 13:30 | disposition left against medical advice (07) ==
LOC: ER 10:56
DX: R10.84 Generalized abdominal pain (principal); R11.10 Vomiting, unspecified; Z53.21 Procedure and treatment not carried out due to patient leaving prior to being seen by health care provider

== ENCOUNTER 2020-09-09 10:01 | Emergency (ER) | payer MEDICAID ==
[~2020-09-09] VITALS: Ht 188 cm; Wt 118.2 kg
[2020-09-09 10:07] VITALS: BP 162/112
[2020-09-09] MEDS ORDERED: diphenhydrAMINE 50 mg/ml inj IV ONE ×2 (10:50→11:40)
[2020-09-09] MEDS ORDERED: proCHLORperazine 10 MG/2 ml inj IV ONE ×2 (10:50→11:40)
[2020-09-09] MEDS ORDERED: haloperidol lactate 5mg/ml inj IM ONE (10:50)
[2020-09-09 11:22] LABS: BASOPHILS % (AUTO) 0.3 % (0-1); EOSINOPHILS # (AUTO) 0.1 X10'3 (0-0.9); EOSINOPHILS % (AUTO) 0.5 % (0-6); LYMPHOCYTES # (AUTO) 0.7 X10'3 (1.1-4.8); LYMPHOCYTES % (AUTO) 6.1 % (21-51); MONOCYTES # (AUTO) 0.4 X10'3 (0-0.9); MONOCYTES % (AUTO) 3.6 % (2-12); NEUTROPHILS # (AUTO) 10.4 X10'3 (1.8-7.7); NEUTROPHILS % (AUTO) 89.5 % (42-75); WHITE BLOOD COUNT 11.6 X10'3 (4.5-11.0)
[2020-09-09 11:37] LABS: ALANINE AMINOTRANSFERASE 19 U/L (12-78); ALBUMIN 4.5 G/DL (3.4-5.0); ALBUMIN/GLOBULIN RATIO 1.4 (1.1-1.5); ALKALINE PHOSPHATASE 70 IU/L (46-116); ANION GAP 11 (8-16); ASPARTATE AMINO TRANSFERASE 14 U/L (10-37); BILIRUBIN,TOTAL 0.7 MG/DL (0.1-1.0); BLOOD UREA NITROGEN 14 MG/DL (7-18); BUN/CREATININE RATIO 13.2 (5.4-32.0); CALCIUM 8.6 MG/DL (8.5-10.1); CHLORIDE 107 MMOL/L (99-107); CREATININE 1.06 MG/DL (0.60-1.10); GLUCOSE 136 MG/DL (70-104); SODIUM 140 MMOL/L (135-145); TOTAL CARBON DIOXIDE 21.7 MMOL/L (24-32); TOTAL PROTEIN 7.8 G/DL (6.4-8.2); eGFR 77 ML/MIN
[2020-09-09 11:43] LABS: HEMATOCRIT 51.2 % (42.0-52.0); MEAN CORPUSCULAR HEMOGLOBIN 32.5 PG (27.0-31.0); MEAN CORPUSCULAR HGB CONC 35.2 g/dL (33.0-36.5); MEAN CORPUSCULAR VOLUME 92.2 FL (78-98); RED BLOOD COUNT 5.55 X10'6 (4.70-6.10); RED CELL DISTRIBUTION WIDTH 12.6 % (11.5-14.5)
[2020-09-09 11:44] LABS: MEAN PLATELET VOLUME 9.4 FL (7.4-10.4); PLATELET COUNT 229 X10'3 (140-440)
--- NOTE | 2020-09-09 11:55 | NUR ---
Pt requested to talk with a different doctor. EDMD Malloy contacted, situation explained including pt's refusal of ordered meds. Gama will talk with pt about poc. RAH Zelaya aware.
[2020-09-09] MEDS ORDERED: pantoprazole 40 MG vial IV ONE ×3 (12:05→12:20)
[2020-09-09] MEDS ORDERED: normal saline 1000ml 1,000 ML IV ONE (12:05)
[2020-09-09] MEDS ORDERED: normal saline 1000ML IV soln IVB ONE (12:30)
--- NOTE | 2020-09-09 12:45 | NUR ---
Pt in room upon return from Q15m break, but no longer there, with IV pulled out 5 minutes later. RAH Zelaya and CHRIS Pizarro notified.
== END 2020-09-09 12:45 | disposition left against medical advice (07) ==
LOC: ER 10:01
DX: R11.15 Cyclical vomiting syndrome unrelated to migraine (principal); R10.84 Generalized abdominal pain; E78.00 Pure hypercholesterolemia, unspecified; K21.9 Gastro-esophageal reflux disease without esophagitis; G89.29 Other chronic pain; F41.9 Anxiety disorder, unspecified; F12.90 Cannabis use, unspecified, uncomplicated; Z56.0 Unemployment, unspecified; Z88.8 Allergy status to other drugs, medicaments and biological substances; Z88.6 Allergy status to analgesic agent; Z79.899 Other long term (current) drug therapy
CPT/HCPCS: 80053; 83880; 84484; 85025; 93005; 96361; 96374; 96375; 99285; C9113; J0780; J1200; J7030

== ENCOUNTER 2020-09-19 07:10 | Emergency (ER) | payer MEDICAID ==
[~2020-09-19] VITALS: Ht 188 cm; Wt 118.2 kg
[2020-09-19 07:48] VITALS: BP 131/88
[2020-09-19] MEDS ORDERED: diphenhydrAMINE 50 mg/ml inj IV ONE (08:40)
[2020-09-19] MEDS ORDERED: acetaminophen 325mg tablet PO ONE (08:40)
[2020-09-19] MEDS ORDERED: ketorolac tromethamine 15mg/ml inj. IV ONE (08:40)
[2020-09-19] MEDS ORDERED: normal saline 1000ml 1,000 ML IV ONE (08:40)
[2020-09-19] MEDS ORDERED: proCHLORperazine 10 MG/2 ml inj IV ONE (08:40)
[2020-09-19 08:47] LABS: BASOPHILS % (AUTO) 0.3 % (0-1); EOSINOPHILS # (AUTO) 0.1 X10'3 (0-0.9); EOSINOPHILS % (AUTO) 0.6 % (0-6); HEMATOCRIT 48.2 % (42.0-52.0); HEMOGLOBIN 16.9 g/dl (14.0-17.9); LYMPHOCYTES # (AUTO) 1.2 X10'3 (1.1-4.8); LYMPHOCYTES % (AUTO) 9.5 % (21-51); MEAN CORPUSCULAR HEMOGLOBIN 31.6 PG (27.0-31.0); MEAN CORPUSCULAR VOLUME 90.2 FL (78-98); MEAN PLATELET VOLUME 9.5 FL (7.4-10.4); MONOCYTES # (AUTO) 0.6 X10'3 (0-0.9); MONOCYTES % (AUTO) 5.2 % (2-12); NEUTROPHILS # (AUTO) 10.5 X10'3 (1.8-7.7); NEUTROPHILS % (AUTO) 84.4 % (42-75); PLATELET COUNT 204 X10'3 (140-440); RED BLOOD COUNT 5.34 X10'6 (4.70-6.10); RED CELL DISTRIBUTION WIDTH 13.4 % (11.5-14.5); WHITE BLOOD COUNT 12.4 X10'3 (4.5-11.0)
[2020-09-19 08:59] LABS: ALANINE AMINOTRANSFERASE 21 U/L (12-78); ALBUMIN 4.4 G/DL (3.4-5.0); ALBUMIN/GLOBULIN RATIO 1.3 (1.1-1.5); ALKALINE PHOSPHATASE 63 IU/L (46-116); ANION GAP 14 (8-16); ASPARTATE AMINO TRANSFERASE 16 U/L (10-37); BILIRUBIN,TOTAL 0.7 MG/DL (0.1-1.0); BLOOD UREA NITROGEN 12 MG/DL (7-18); BUN/CREATININE RATIO 10.6 (5.4-32.0); CALCIUM 8.6 MG/DL (8.5-10.1); CHLORIDE 107 MMOL/L (99-107); CREATININE 1.13 MG/DL (0.60-1.10); GLUCOSE 114 MG/DL (70-104); LIPASE 403 U/L (73-393); SODIUM 140 MMOL/L (135-145); TOTAL CARBON DIOXIDE 19.1 MMOL/L (24-32); TOTAL PROTEIN 7.8 G/DL (6.4-8.2); eGFR 71 ML/MIN
[2020-09-19] MEDS ORDERED: proCHLORperazine 10mg tablet PO ONE (09:15)
[2020-09-19] MEDS ORDERED: diphenhydrAMINE 50 mg/ml inj IM ONE (09:15)
[2020-09-19] MEDS ORDERED: ketorolac trometh inj. 60 MG/2 ML VIAL IM ONE (09:15)
[2020-09-19 09:19] LABS: CLARITY,URINE SLIGHTLY CLOUDY (Clear); COLOR,URINE YELLOW (Yellow); GLUCOSE, URINE NEGATIVE (Neg); KETONES,URINE NEGATIVE (Neg); LEUKOCYTE ESTERASE ,URINE NEGATIVE (Neg); NITRITES, URINE NEGATIVE (Neg); OCCULT BLOOD,URINE NEGATIVE (Neg); PROTEIN,URINE NEGATIVE (Neg)
[2020-09-19 09:25] LABS: UA COLLECTION TYPE CLN CATCH MIDSTREAM
[2020-09-19 09:27] LABS: BACTERIA,URINE 1+ /HPF (Neg); CAL OXALATE CRYSTALS 4+ /HPF (NEGATIVE); MUCUS STRANDS MODERATE /LPF (Neg); RBC,URINE 0-2 /HPF (0-2); SQUAMOUS EPITHELIAL CELL,UR FEW /LPF (FEW); WBC,URINE 0-4 /HPF (0-4)
[2020-09-19] MEDS ORDERED: iohexol 300mg/ml 100ml inj. ONE (09:31)
== END 2020-09-19 11:10 | disposition home or self-care (01) ==
LOC: ER 07:10
DX: R10.84 Generalized abdominal pain (principal); G89.29 Other chronic pain; K59.00 Constipation, unspecified; R50.9 Fever, unspecified; R11.10 Vomiting, unspecified; E78.00 Pure hypercholesterolemia, unspecified; K21.9 Gastro-esophageal reflux disease without esophagitis; F41.9 Anxiety disorder, unspecified; F12.90 Cannabis use, unspecified, uncomplicated; Z87.440 Personal history of urinary (tract) infections; Z56.0 Unemployment, unspecified; Z88.8 Allergy status to other drugs, medicaments and biological substances; Z88.6 Allergy status to analgesic agent; Z79.899 Other long term (current) drug therapy
CPT/HCPCS: 36415; 74176; 80053; 81001; 83690; 85025; 93005; 96372; 99285; J1200; J1885; Q9967; Q0164

== ENCOUNTER 2020-10-27 09:14 | Emergency (ER) | payer MEDICAID ==
[~2020-10-27] VITALS: Ht 188 cm; Wt 103.6 kg
[2020-10-27] MEDS ORDERED: diphenhydrAMINE 50 mg/ml inj IV ONE (09:25)
[2020-10-27] MEDS ORDERED: normal saline 1000ML IV soln IVB ONE ×2 (09:25)
[2020-10-27] MEDS ORDERED: haloperidol lactate 5mg/ml inj IM ONE (09:25)
[2020-10-27] MEDS ORDERED: pantoprazole 40mg Tablet.DR PO SCH (09:55)
[2020-10-27] MEDS ORDERED: glycopyrrolate 0.2mg/ml inj IV ONE (09:55)
[2020-10-27 10:11] LABS: BASOPHILS % (AUTO) 0.3 % (0-1); EOSINOPHILS # (AUTO) 0.1 X10'3 (0-0.9); EOSINOPHILS % (AUTO) 0.7 % (0-6); HEMATOCRIT 47.7 % (42.0-52.0); HEMOGLOBIN 16.5 g/dl (14.0-17.9); LYMPHOCYTES # (AUTO) 1.2 X10'3 (1.1-4.8); LYMPHOCYTES % (AUTO) 16.4 % (21-51); MEAN CORPUSCULAR HEMOGLOBIN 31.3 PG (27.0-31.0); MEAN CORPUSCULAR HGB CONC 34.6 g/dL (33.0-36.5); MEAN CORPUSCULAR VOLUME 90.4 FL (78-98); MEAN PLATELET VOLUME 9.2 FL (7.4-10.4); MONOCYTES # (AUTO) 0.3 X10'3 (0-0.9); MONOCYTES % (AUTO) 4.8 % (2-12); NEUTROPHILS # (AUTO) 5.5 X10'3 (1.8-7.7); NEUTROPHILS % (AUTO) 77.8 % (42-75); PLATELET COUNT 171 X10'3 (140-440); RED BLOOD COUNT 5.27 X10'6 (4.70-6.10); RED CELL DISTRIBUTION WIDTH 14.6 % (11.5-14.5); WHITE BLOOD COUNT 7.1 X10'3 (4.5-11.0)
[2020-10-27 10:25] LABS: ALANINE AMINOTRANSFERASE 17 U/L (12-78); ALBUMIN 4.6 G/DL (3.4-5.0); ALBUMIN/GLOBULIN RATIO 1.4 (1.1-1.5); ALKALINE PHOSPHATASE 61 IU/L (46-116); ANION GAP 11 (8-16); ASPARTATE AMINO TRANSFERASE 11 U/L (10-37); BILIRUBIN,TOTAL 0.7 MG/DL (0.1-1.0); BLOOD UREA NITROGEN 10 MG/DL (7-18); BUN/CREATININE RATIO 10.9 (5.4-32.0); CALCIUM 8.8 MG/DL (8.5-10.1); CHLORIDE 107 MMOL/L (99-107); CREATININE 0.92 MG/DL (0.60-1.10); GLUCOSE 113 MG/DL (70-104); LIPASE 185 U/L (73-393); POTASSIUM 4.2 MMOL/L (3.5-5.1); SODIUM 142 MMOL/L (135-145); TOTAL PROTEIN 7.8 G/DL (6.4-8.2); eGFR 90 ML/MIN
[2020-10-27 11:03] VITALS: BP 113/92
== END 2020-10-27 11:00 | disposition home or self-care (01) ==
LOC: ER 09:15
DX: G89.29 Other chronic pain (principal); R10.9 Unspecified abdominal pain; E78.00 Pure hypercholesterolemia, unspecified; K21.9 Gastro-esophageal reflux disease without esophagitis; F41.9 Anxiety disorder, unspecified; Z56.0 Unemployment, unspecified; Z88.8 Allergy status to other drugs, medicaments and biological substances; Z88.5 Allergy status to narcotic agent; Z88.6 Allergy status to analgesic agent; Z79.899 Other long term (current) drug therapy
CPT/HCPCS: 36415; 80053; 83690; 85025; 96361; 96374; 99284; J1200; J7030

== ENCOUNTER 2020-10-30 20:21 | Emergency (ER) | payer MEDICAID ==
[~2020-10-30] VITALS: Ht 188 cm; Wt 102.0 kg
[2020-10-30 20:29] VITALS: BP 155/91
[2020-10-30 22:26] LABS: HEMOGLOBIN 15.4 g/dl (14.0-17.9); MONOCYTES # (AUTO) 0.6 X10'3 (0-0.9)
[2020-10-30 22:28] LABS: BASOPHILS % (AUTO) 0.1 % (0-1); EOSINOPHILS % (AUTO) 0 % (0-6); HEMATOCRIT 43.6 % (42.0-52.0); LYMPHOCYTES # (AUTO) 0.7 X10'3 (1.1-4.8); LYMPHOCYTES % (AUTO) 3.8 % (21-51); MEAN CORPUSCULAR HEMOGLOBIN 31.3 PG (27.0-31.0); MEAN CORPUSCULAR HGB CONC 35.3 g/dL (33.0-36.5); MEAN CORPUSCULAR VOLUME 88.5 FL (78-98); MEAN PLATELET VOLUME 9.9 FL (7.4-10.4); MONOCYTES % (AUTO) 3.3 % (2-12); NEUTROPHILS # (AUTO) 16.5 X10'3 (1.8-7.7); NEUTROPHILS % (AUTO) 92.8 % (42-75); PLATELET COUNT 240 X10'3 (140-440); RED BLOOD COUNT 4.92 X10'6 (4.70-6.10); RED CELL DISTRIBUTION WIDTH 13.8 % (11.5-14.5); WHITE BLOOD COUNT 17.8 X10'3 (4.5-11.0)
[2020-10-30 22:42] LABS: ALANINE AMINOTRANSFERASE 20 U/L (12-78); ALBUMIN 4.8 G/DL (3.4-5.0); ALBUMIN/GLOBULIN RATIO 1.6 (1.1-1.5); ALKALINE PHOSPHATASE 60 IU/L (46-116); ANION GAP 20 (8-16); ASPARTATE AMINO TRANSFERASE 20 U/L (10-37); BILIRUBIN,TOTAL 1.5 MG/DL (0.1-1.0); BLOOD UREA NITROGEN 20 MG/DL (7-18); BUN/CREATININE RATIO 14.2 (5.4-32.0); CALCIUM 9.2 MG/DL (8.5-10.1); CHLORIDE 108 MMOL/L (99-107); CREATININE 1.41 MG/DL (0.60-1.10); GLUCOSE 135 MG/DL (70-104); LIPASE 104 U/L (73-393); POTASSIUM 4.2 MMOL/L (3.5-5.1); SODIUM 145 MMOL/L (135-145); TOTAL CARBON DIOXIDE 16.6 MMOL/L (24-32); TOTAL PROTEIN 7.8 G/DL (6.4-8.2); eGFR 55 ML/MIN
[2020-10-31] MEDS ORDERED: ondansetron/PF 4mg/2ml inj IV ONE (00:05)
[2020-10-31] MEDS ORDERED: normal saline 1000ML IV soln IVB ONE ×2 (00:05→01:15)
[2020-10-31] MEDS ORDERED: LORazepam 2 mg/ml vial IV ONE (00:05)
[2020-10-31] MEDS ORDERED: pantoprazole 40 MG vial IV ONE (00:05)
[2020-10-31 00:14] LABS: CLARITY,URINE CLEAR (Clear); COLOR,URINE YELLOW (Yellow); GLUCOSE, URINE NEGATIVE (Neg); KETONES,URINE 40 mg/dl (Neg); LEUKOCYTE ESTERASE ,URINE NEGATIVE (Neg); NITRITES, URINE NEGATIVE (Neg); OCCULT BLOOD,URINE NEGATIVE (Neg); PH,URINE 5.5 (4.8-8.0); PROTEIN,URINE 30 mg/dl (Neg)
[2020-10-31] MEDS ORDERED: glycopyrrolate 0.2mg/ml inj IV ONE (00:15)
[2020-10-31 00:22] LABS: UA COLLECTION TYPE CLN CATCH MIDSTREAM
[2020-10-31 00:23] LABS: BACTERIA,URINE FEW /HPF (Neg); MUCUS STRANDS FEW /LPF (Neg); RBC,URINE 0-2 /HPF (0-2); SQUAMOUS EPITHELIAL CELL,UR FEW /LPF (FEW); WBC,URINE 0-4 /HPF (0-4)
== END 2020-10-31 02:44 | disposition home or self-care (01) ==
LOC: ER 20:21
DX: G89.29 Other chronic pain (principal); R10.13 Epigastric pain; R11.2 Nausea with vomiting, unspecified; E86.0 Dehydration; E78.00 Pure hypercholesterolemia, unspecified; K21.9 Gastro-esophageal reflux disease without esophagitis; F12.90 Cannabis use, unspecified, uncomplicated; Z56.0 Unemployment, unspecified; Z87.440 Personal history of urinary (tract) infections; Z79.899 Other long term (current) drug therapy; Z88.8 Allergy status to other drugs, medicaments and biological substances
CPT/HCPCS: 36415; 80053; 81001; 83690; 84145; 85025; 96361; 96374; 96375; 99284; C9113; J2405; J7030; J3490

== ENCOUNTER → 2021-02-15 | Emergency (ER) | payer MEDICAID ==
[~2021-02-15] VITALS: Ht 188 cm; Wt 100.0 kg
[2021-02-15 11:19] VITALS: BP 123/95
[2021-02-15 11:48] LABS: BASOPHILS % (AUTO) 0.2 % (0-1); EOSINOPHILS # (AUTO) 0.1 X10'3 (0-0.9); EOSINOPHILS % (AUTO) 1.8 % (0-6); HEMATOCRIT 49.2 % (42.0-52.0); HEMOGLOBIN 17.3 g/dl (14.0-17.9); LYMPHOCYTES # (AUTO) 1.1 X10'3 (1.1-4.8); LYMPHOCYTES % (AUTO) 12.5 % (21-51); MEAN CORPUSCULAR HEMOGLOBIN 31.5 PG (27.0-31.0); MEAN CORPUSCULAR HGB CONC 35.1 g/dL (33.0-36.5); MEAN CORPUSCULAR VOLUME 89.7 FL (78-98); MONOCYTES # (AUTO) 0.4 X10'3 (0-0.9); MONOCYTES % (AUTO) 5.1 % (2-12); NEUTROPHILS # (AUTO) 6.8 X10'3 (1.8-7.7); NEUTROPHILS % (AUTO) 80.4 % (42-75); PLATELET COUNT 194 X10'3 (140-440); RED BLOOD COUNT 5.49 X10'6 (4.70-6.10); RED CELL DISTRIBUTION WIDTH 12.9 % (11.5-14.5); WHITE BLOOD COUNT 8.5 X10'3 (4.5-11.0)
[2021-02-15 11:55] LABS: ALANINE AMINOTRANSFERASE 22 U/L (12-78); ALBUMIN 4.6 G/DL (3.4-5.0); ALBUMIN/GLOBULIN RATIO 1.4 (1.1-1.5); ALKALINE PHOSPHATASE 62 IU/L (46-116); ANION GAP 13 (8-16); ASPARTATE AMINO TRANSFERASE 15 U/L (10-37); BILIRUBIN,TOTAL 0.6 MG/DL (0.1-1.0); BLOOD UREA NITROGEN 11 MG/DL (7-18); BUN/CREATININE RATIO 11.6 (5.4-32.0); CALCIUM 9.1 MG/DL (8.5-10.1); CHLORIDE 104 MMOL/L (99-107); CREATININE 0.95 MG/DL (0.60-1.10); GLUCOSE 105 MG/DL (70-104); LIPASE 200 U/L (73-393); POTASSIUM 4.2 MMOL/L (3.5-5.1); SODIUM 140 MMOL/L (135-145); TOTAL CARBON DIOXIDE 23.2 MMOL/L (24-32); eGFR 87 ML/MIN
== END | disposition left against medical advice (07) ==
LOC: ER 11:05
DX: R10.84 Generalized abdominal pain (principal); R11.2 Nausea with vomiting, unspecified; R19.7 Diarrhea, unspecified; E78.00 Pure hypercholesterolemia, unspecified; K21.9 Gastro-esophageal reflux disease without esophagitis; G89.29 Other chronic pain; F41.9 Anxiety disorder, unspecified; F12.90 Cannabis use, unspecified, uncomplicated; Z87.440 Personal history of urinary (tract) infections; Z56.0 Unemployment, unspecified; Z88.8 Allergy status to other drugs, medicaments and biological substances; Z88.6 Allergy status to analgesic agent; Z79.899 Other long term (current) drug therapy
CPT/HCPCS: 36415; 80053; 83690; 85025; 99283

== ENCOUNTER 2021-03-10 07:54 | Emergency (ER) | payer MEDICAID ==
[~2021-03-10] VITALS: Ht 188 cm; Wt 102.0 kg
[2021-03-10 08:02] VITALS: BP 125/85
[2021-03-10] MEDS ORDERED: ondansetron 4mg rapidly disintigrating tab PO ONE (08:10)
[2021-03-10 09:09] LABS: BASOPHILS % (AUTO) 0.5 % (0-1); EOSINOPHILS # (AUTO) 0.2 X10'3 (0-0.9); EOSINOPHILS % (AUTO) 2.7 % (0-6); HEMATOCRIT 47.8 % (42.0-52.0); HEMOGLOBIN 16.9 g/dl (14.0-17.9); LYMPHOCYTES # (AUTO) 1.4 X10'3 (1.1-4.8); LYMPHOCYTES % (AUTO) 17.5 % (21-51); MEAN CORPUSCULAR HEMOGLOBIN 31.7 PG (27.0-31.0); MEAN CORPUSCULAR HGB CONC 35.3 g/dL (33.0-36.5); MEAN CORPUSCULAR VOLUME 89.7 FL (78-98); MONOCYTES # (AUTO) 0.5 X10'3 (0-0.9); MONOCYTES % (AUTO) 5.7 % (2-12); NEUTROPHILS # (AUTO) 6.1 X10'3 (1.8-7.7); NEUTROPHILS % (AUTO) 73.6 % (42-75); PLATELET COUNT 197 X10'3 (140-440); RED BLOOD COUNT 5.33 X10'6 (4.70-6.10); WHITE BLOOD COUNT 8.2 X10'3 (4.5-11.0)
[2021-03-10 09:29] LABS: ALANINE AMINOTRANSFERASE 18 U/L (12-78); ALBUMIN 4.3 G/DL (3.4-5.0); ALBUMIN/GLOBULIN RATIO 1.3 (1.1-1.5); ALKALINE PHOSPHATASE 59 IU/L (46-116); ANION GAP 11 (8-16); ASPARTATE AMINO TRANSFERASE 13 U/L (10-37); BILIRUBIN,TOTAL 0.4 MG/DL (0.1-1.0); BLOOD UREA NITROGEN 12 MG/DL (7-18); BUN/CREATININE RATIO 12.5 (5.4-32.0); CALCIUM 8.7 MG/DL (8.5-10.1); CHLORIDE 106 MMOL/L (99-107); CREATININE 0.96 MG/DL (0.60-1.10); GLUCOSE 111 MG/DL (70-104); LIPASE 263 U/L (73-393); POTASSIUM 4.2 MMOL/L (3.5-5.1); SODIUM 139 MMOL/L (135-145); TOTAL CARBON DIOXIDE 21.8 MMOL/L (24-32); TOTAL PROTEIN 7.5 G/DL (6.4-8.2); eGFR 85 ML/MIN
[2021-03-10 09:56] LABS: CLARITY,URINE CLEAR (Clear); COLOR,URINE STRAW (Yellow); GLUCOSE, URINE NEGATIVE (Neg); KETONES,URINE NEGATIVE (Neg); LEUKOCYTE ESTERASE ,URINE NEGATIVE (Neg); NITRITES, URINE NEGATIVE (Neg); OCCULT BLOOD,URINE NEGATIVE (Neg); PROTEIN,URINE NEGATIVE (Neg); UA COLLECTION TYPE CLN CATCH MIDSTREAM; UROBILINOGEN,URINE 0.2 E.U/dL (0.2-1.0)
[2021-03-10] MEDS ORDERED: CIME200T95 PO (10:12)
[2021-03-10] MEDS ORDERED: ONDA8TAB13 PO (10:12)
[2021-03-10] MEDS ORDERED: LIDOcaine Viscous 15ml cup MM PRN (10:30)
[2021-03-10] MEDS ORDERED: famotidine 20mg tablet PO ONE (10:41)
[2021-03-10] MEDS ORDERED: diphenhydrAMINE 50 mg/ml inj IM ONE (10:50)
[2021-03-10] MEDS ORDERED: proCHLORperazine 10 MG/2 ml inj IM ONE (10:50)
[2021-03-10] MEDS ORDERED: LORazepam 2 mg/ml vial IM ONE (11:15)
[2021-03-10] MEDS ORDERED: ondansetron/PF 4mg/2ml inj IM ONE (11:15)
== END 2021-03-10 11:21 | disposition home or self-care (01) ==
LOC: ER 07:54
DX: K52.9 Noninfective gastroenteritis and colitis, unspecified (principal); R11.2 Nausea with vomiting, unspecified; R10.84 Generalized abdominal pain; E78.00 Pure hypercholesterolemia, unspecified; K21.9 Gastro-esophageal reflux disease without esophagitis; G89.29 Other chronic pain; F41.9 Anxiety disorder, unspecified; F12.90 Cannabis use, unspecified, uncomplicated; Z87.440 Personal history of urinary (tract) infections; Z56.0 Unemployment, unspecified; Z88.8 Allergy status to other drugs, medicaments and biological substances; Z88.6 Allergy status to analgesic agent; Z79.899 Other long term (current) drug therapy
CPT/HCPCS: 36415; 80053; 81003; 83690; 85025; 99283

== ENCOUNTER 2021-04-07 05:18 | Emergency (ER) | payer MEDICAID ==
[~2021-04-07] VITALS: Ht 188 cm; Wt 99.0 kg
[~2021-04-07 05:18] MED LIST changes: +CIME200T95 PO; +ONDA8TAB13 PO
[2021-04-07 05:58] LABS: BASOPHILS % (AUTO) 0.3 % (0-1); EOSINOPHILS # (AUTO) 0.1 X10'3 (0-0.9); EOSINOPHILS % (AUTO) 0.9 % (0-6); HEMATOCRIT 45.2 % (42.0-52.0); HEMOGLOBIN 16.2 g/dl (14.0-17.9); LYMPHOCYTES # (AUTO) 0.4 X10'3 (1.1-4.8); LYMPHOCYTES % (AUTO) 4.9 % (21-51); MEAN CORPUSCULAR HEMOGLOBIN 31.6 PG (27.0-31.0); MEAN CORPUSCULAR HGB CONC 35.9 g/dL (33.0-36.5); MEAN CORPUSCULAR VOLUME 88.1 FL (78-98); MEAN PLATELET VOLUME 8.8 FL (7.4-10.4); MONOCYTES # (AUTO) 0.7 X10'3 (0-0.9); MONOCYTES % (AUTO) 9.3 % (2-12); NEUTROPHILS # (AUTO) 6.4 X10'3 (1.8-7.7); NEUTROPHILS % (AUTO) 84.6 % (42-75); PLATELET COUNT 175 X10'3 (140-440); RED BLOOD COUNT 5.13 X10'6 (4.70-6.10); WHITE BLOOD COUNT 7.5 X10'3 (4.5-11.0)
[2021-04-07 05:59] LABS: CLARITY,URINE CLEAR (Clear); COLOR,URINE YELLOW (Yellow); GLUCOSE, URINE NEGATIVE (Neg); KETONES,URINE NEGATIVE (Neg); LEUKOCYTE ESTERASE ,URINE NEGATIVE (Neg); NITRITES, URINE NEGATIVE (Neg); OCCULT BLOOD,URINE NEGATIVE (Neg); PROTEIN,URINE NEGATIVE (Neg); UROBILINOGEN,URINE 0.2 E.U/dL (0.2-1.0)
[2021-04-07 06:01] LABS: UA COLLECTION TYPE FOLEY CATH
[2021-04-07] MEDS ORDERED: NO HOME MEDS (06:35)
[2021-04-07 06:37] LABS: ALANINE AMINOTRANSFERASE 14 U/L (12-78); ALBUMIN 4.4 G/DL (3.4-5.0); ALBUMIN/GLOBULIN RATIO 1.4 (1.1-1.5); ALKALINE PHOSPHATASE 63 IU/L (46-116); ANION GAP 9 (8-16); ASPARTATE AMINO TRANSFERASE 12 U/L (10-37); BILIRUBIN,TOTAL 0.6 MG/DL (0.1-1.0); BLOOD UREA NITROGEN 13 MG/DL (7-18); BUN/CREATININE RATIO 13.5 (5.4-32.0); CALCIUM 8.4 MG/DL (8.5-10.1); CHLORIDE 104 MMOL/L (99-107); CREATININE 0.96 MG/DL (0.60-1.10); GLUCOSE 110 MG/DL (70-104); LIPASE 375 U/L (73-393); POTASSIUM 3.8 MMOL/L (3.5-5.1); SODIUM 135 MMOL/L (135-145); TOTAL CARBON DIOXIDE 22.1 MMOL/L (24-32); TOTAL PROTEIN 7.6 G/DL (6.4-8.2); eGFR 85 ML/MIN
[2021-04-07] MEDS ORDERED: pantoprazole 40MG/D5 100ML BAG 100 ML IV ONE (06:40)
[2021-04-07] MEDS ORDERED: pantoprazole 40MG/NS 100ML BAG 100 ML IV ONE (06:48)
[2021-04-07] MEDS ORDERED: ketorolac tromethamine 15mg/ml inj. IV ONE (07:00)
[2021-04-07] MEDS ORDERED: ondansetron/PF 4mg/2ml inj IV ONE (07:00)
[2021-04-07] MEDS ORDERED: morphine 4 MG/ML inj SYRINge IV ONE (07:00)
[2021-04-07] MEDS: hyoscyamine 0.125mg TAB.SUBL SL ONE ×3 (07:16→07:32)
[2021-04-07 07:24] LABS: C-REACTIVE PROTEIN 0.24 MG/DL (0.0-0.5); ETHANOL < 0.010 GM/DL (0.0-0.010)
[2021-04-07] MEDS: dicyclomine 10mg/ml 2ml ampule IM ONE ×2 (07:26→07:32)
[2021-04-07] MEDS ORDERED: pantoprazole 40MG/NS 100ML BAG 100 ML IV SCH (08:00)
[2021-04-07 09:34] LABS: URINE AMPHETAMINE SCREEN NEGATIVE (Neg); URINE BARBITUATE SCREEN NEGATIVE (Neg); URINE BENZODIAZEPINES SCREEN NEGATIVE (Neg); URINE CANNABINOID SCREEN POSITIVE (Neg); URINE COCAINE SCREEN NEGATIVE (Neg); URINE METHADONE SCREEN NEGATIVE (Neg); URINE OPIATE SCREEN NEGATIVE (Neg); URINE PHENCYCLIDINE SCREEN NEGATIVE (Neg)
[2021-04-07 10:09] VITALS: BP 110/82
[2021-04-07] MEDS ORDERED: HYDROmorphone 1 mg/ml syringe IV ONE (10:40)
[2021-04-07] MEDS ORDERED: ONDA4TAB12 PO (10:43)
[2021-04-07] MEDS ORDERED: AMIT25TA9 PO (10:43)
[2021-04-07] MEDS ORDERED: DICY10CA88 PO (10:43)
[2021-04-07] MEDS ORDERED: OMEP20CA15 PO (10:50)
== END 2021-04-07 11:27 | disposition home or self-care (01) ==
LOC: ER 05:19
DX: R10.84 Generalized abdominal pain (principal); G89.29 Other chronic pain; R11.2 Nausea with vomiting, unspecified; R00.0 Tachycardia, unspecified; F12.90 Cannabis use, unspecified, uncomplicated; E78.00 Pure hypercholesterolemia, unspecified; K21.9 Gastro-esophageal reflux disease without esophagitis; F41.9 Anxiety disorder, unspecified; Z87.440 Personal history of urinary (tract) infections; Z56.0 Unemployment, unspecified; Z88.8 Allergy status to other drugs, medicaments and biological substances; Z88.6 Allergy status to analgesic agent; Z79.899 Other long term (current) drug therapy
CPT/HCPCS: 36415; 80053; 80305; 80320; 81003; 83605; 83690; 85025; 85651; 86140; 96372; 96374; 96375; 99284; C9113; J0500; J1170; J1885; J2270; J2405

== ENCOUNTER 2021-05-26 05:20 | Emergency (ER) | payer MEDICAID ==
[~2021-05-26] VITALS: Ht 188 cm; Wt 104.5 kg
[~2021-05-26 05:20] MED LIST changes: +AMIT25TA9 PO; -CIME200T95 PO; +NO HOME MEDS; +OMEP20CA15 PO; +ONDA4TAB12 PO; -ONDA8TAB13 PO; -PANT40TA54 PO
[2021-05-26 06:32] LABS: BASOPHILS % (AUTO) 0.2 % (0-1); EOSINOPHILS # (AUTO) 0.1 X10'3 (0-0.9); EOSINOPHILS % (AUTO) 1.3 % (0-6); HEMATOCRIT 47.4 % (42.0-52.0); HEMOGLOBIN 16.8 g/dl (14.0-17.9); LYMPHOCYTES # (AUTO) 1.5 X10'3 (1.1-4.8); LYMPHOCYTES % (AUTO) 13.4 % (21-51); MEAN CORPUSCULAR HEMOGLOBIN 31.6 PG (27.0-31.0); MEAN CORPUSCULAR HGB CONC 35.4 g/dL (33.0-36.5); MEAN CORPUSCULAR VOLUME 89.2 FL (78-98); MEAN PLATELET VOLUME 8.8 FL (7.4-10.4); MONOCYTES # (AUTO) 0.6 X10'3 (0-0.9); MONOCYTES % (AUTO) 5.3 % (2-12); NEUTROPHILS # (AUTO) 8.7 X10'3 (1.8-7.7); NEUTROPHILS % (AUTO) 79.8 % (42-75); PLATELET COUNT 205 X10'3 (140-440); RED BLOOD COUNT 5.32 X10'6 (4.70-6.10); RED CELL DISTRIBUTION WIDTH 13.4 % (11.5-14.5); WHITE BLOOD COUNT 10.9 X10'3 (4.5-11.0)
--- NOTE | 2021-05-26 06:36 | NUR ---
Report given to Zee
[2021-05-26 06:40] LABS: ALANINE AMINOTRANSFERASE 21 U/L (12-78); ALBUMIN 4.4 G/DL (3.4-5.0); ALBUMIN/GLOBULIN RATIO 1.3 (1.1-1.5); ALKALINE PHOSPHATASE 57 IU/L (46-116); ANION GAP 13 (8-16); ASPARTATE AMINO TRANSFERASE 15 U/L (10-37); BILIRUBIN,TOTAL 0.8 MG/DL (0.1-1.0); BLOOD UREA NITROGEN 14 MG/DL (7-18); BUN/CREATININE RATIO 14.3 (5.4-32.0); CALCIUM 8.6 MG/DL (8.5-10.1); CHLORIDE 105 MMOL/L (99-107); CREATININE 0.98 MG/DL (0.60-1.10); GLUCOSE 107 MG/DL (70-104); LIPASE 269 U/L (73-393); POTASSIUM 3.9 MMOL/L (3.5-5.1); SODIUM 141 MMOL/L (135-145); TOTAL CARBON DIOXIDE 22.9 MMOL/L (24-32); TOTAL PROTEIN 7.7 G/DL (6.4-8.2); eGFR 83 ML/MIN
[2021-05-26] MEDS ORDERED: normal saline 1000ML IV soln IVB ONE (06:45)
[2021-05-26] MEDS ORDERED: HYDROmorphone 1 mg/ml syringe IV ONE ×2 (06:45→08:55)
[2021-05-26] MEDS ORDERED: ondansetron/PF 4mg/2ml inj IV ONE (06:45)
[2021-05-26 06:51] LABS: CLARITY,URINE CLEAR (Clear); COLOR,URINE YELLOW (Yellow); GLUCOSE, URINE NEGATIVE (Neg); KETONES,URINE NEGATIVE (Neg); LEUKOCYTE ESTERASE ,URINE NEGATIVE (Neg); NITRITES, URINE NEGATIVE (Neg); OCCULT BLOOD,URINE NEGATIVE (Neg); PH,URINE 5.5 (4.8-8.0); PROTEIN,URINE NEGATIVE (Neg); UROBILINOGEN,URINE 0.2 E.U/dL (0.2-1.0)
[2021-05-26 06:56] LABS: UA COLLECTION TYPE CLN CATCH MIDSTREAM
[2021-05-26] MEDS ORDERED: dicyclomine 10mg/ml 2ml ampule IM ONE (07:00)
[2021-05-26] MEDS ORDERED: hyoscyamine 0.125mg TAB.SUBL SL ONE ×3 (07:00→09:00)
[2021-05-26 07:21] LABS: URINE AMPHETAMINE SCREEN NEGATIVE (Neg); URINE BARBITUATE SCREEN NEGATIVE (Neg); URINE BENZODIAZEPINES SCREEN NEGATIVE (Neg); URINE CANNABINOID SCREEN POSITIVE (Neg); URINE COCAINE SCREEN NEGATIVE (Neg); URINE METHADONE SCREEN NEGATIVE (Neg); URINE OPIATE SCREEN NEGATIVE (Neg); URINE PHENCYCLIDINE SCREEN NEGATIVE (Neg)
[2021-05-26] MEDS: pantoprazole 40MG/NS 100ML BAG 100 ML IV SCH ×2 (08:46→09:27)
[2021-05-26 09:52] VITALS: BP 146/98
== END 2021-05-26 09:48 | disposition home or self-care (01) ==
LOC: ER 05:21
DX: R10.10 Upper abdominal pain, unspecified (principal); G89.29 Other chronic pain; F12.90 Cannabis use, unspecified, uncomplicated; R11.2 Nausea with vomiting, unspecified; E78.00 Pure hypercholesterolemia, unspecified; K21.9 Gastro-esophageal reflux disease without esophagitis; F41.9 Anxiety disorder, unspecified; Z87.440 Personal history of urinary (tract) infections; Z56.0 Unemployment, unspecified; Z88.6 Allergy status to analgesic agent; Z88.8 Allergy status to other drugs, medicaments and biological substances; Z79.899 Other long term (current) drug therapy
CPT/HCPCS: 36415; 80053; 80305; 81003; 83690; 85025; 96361; 96374; 96375; 96376; 99285; C9113; J1170; J2405; J7030

== ENCOUNTER 2021-06-11 10:32 | Emergency (ER) | payer MEDICAID ==
[~2021-06-11] VITALS: Ht 188 cm; Wt 100.0 kg
[2021-06-11 10:44] VITALS: BP 142/79
[2021-06-11 11:12] LABS: BASOPHILS % (AUTO) 0.3 % (0-1); EOSINOPHILS # (AUTO) 0.1 X10'3 (0-0.9); EOSINOPHILS % (AUTO) 1.2 % (0-6); HEMATOCRIT 47.2 % (42.0-52.0); HEMOGLOBIN 16.6 g/dl (14.0-17.9); LYMPHOCYTES # (AUTO) 1.2 X10'3 (1.1-4.8); MEAN CORPUSCULAR HEMOGLOBIN 31.5 PG (27.0-31.0); MEAN CORPUSCULAR HGB CONC 35.2 g/dL (33.0-36.5); MEAN CORPUSCULAR VOLUME 89.5 FL (78-98); MONOCYTES # (AUTO) 0.5 X10'3 (0-0.9); MONOCYTES % (AUTO) 6.2 % (2-12); NEUTROPHILS # (AUTO) 6.5 X10'3 (1.8-7.7); NEUTROPHILS % (AUTO) 77.3 % (42-75); PLATELET COUNT 184 X10'3 (140-440); RED BLOOD COUNT 5.28 X10'6 (4.70-6.10); RED CELL DISTRIBUTION WIDTH 13.1 % (11.5-14.5); WHITE BLOOD COUNT 8.3 X10'3 (4.5-11.0)
[2021-06-11 11:25] LABS: ALANINE AMINOTRANSFERASE 19 U/L (12-78); ALBUMIN 4.5 G/DL (3.4-5.0); ALBUMIN/GLOBULIN RATIO 1.5 (1.1-1.5); ALKALINE PHOSPHATASE 52 IU/L (46-116); ASPARTATE AMINO TRANSFERASE 11 U/L (10-37); BILIRUBIN,TOTAL 0.5 MG/DL (0.1-1.0); BLOOD UREA NITROGEN 13 MG/DL (7-18); BUN/CREATININE RATIO 14.9 (5.4-32.0); CALCIUM 9.2 MG/DL (8.5-10.1); CHLORIDE 104 MMOL/L (99-107); CREATININE 0.87 MG/DL (0.60-1.10); GLUCOSE 99 MG/DL (70-104); LIPASE 185 U/L (73-393); SODIUM 139 MMOL/L (135-145); TOTAL PROTEIN 7.6 G/DL (6.4-8.2); eGFR > 90 ML/MIN
[2021-06-11 11:27] LABS: ANION GAP 12 (8-16); TOTAL CARBON DIOXIDE 22.6 MMOL/L (24-32)
[2021-06-11] MEDS ORDERED: LORazepam 2 mg/ml vial IV ONE (11:50)
[2021-06-11] MEDS ORDERED: morphine 2 MG/ML inj. syringe IV PRN (11:50)
[2021-06-11] MEDS ORDERED: ketorolac tromethamine 15mg/ml inj. IV ONE (11:50)
[2021-06-11] MEDS ORDERED: ondansetron/PF 4mg/2ml inj IV ONE (11:50)
[2021-06-11 11:51] LABS: CLARITY,URINE CLEAR (Clear); COLOR,URINE YELLOW (Yellow); GLUCOSE, URINE NEGATIVE (Neg); KETONES,URINE NEGATIVE (Neg); LEUKOCYTE ESTERASE ,URINE NEGATIVE (Neg); NITRITES, URINE NEGATIVE (Neg); OCCULT BLOOD,URINE NEGATIVE (Neg); PROTEIN,URINE NEGATIVE (Neg); UROBILINOGEN,URINE 0.2 E.U/dL (0.2-1.0)
[2021-06-11] MEDS ORDERED: normal saline 1000ML IV soln IVB ONE (11:55)
[2021-06-11 11:59] LABS: UA COLLECTION TYPE VOIDED
[2021-06-11] MEDS ORDERED: ONDA4TAB12 PO (13:03)
[2021-06-11 14:26] LABS: URINE AMPHETAMINE SCREEN NEGATIVE (Neg); URINE BARBITUATE SCREEN NEGATIVE (Neg); URINE BENZODIAZEPINES SCREEN NEGATIVE (Neg); URINE CANNABINOID SCREEN POSITIVE (Neg); URINE COCAINE SCREEN NEGATIVE (Neg); URINE METHADONE SCREEN NEGATIVE (Neg); URINE OPIATE SCREEN NEGATIVE (Neg); URINE PHENCYCLIDINE SCREEN NEGATIVE (Neg)
== END 2021-06-11 14:14 | disposition home or self-care (01) ==
LOC: ER 10:33
DX: R10.84 Generalized abdominal pain (principal); R11.15 Cyclical vomiting syndrome unrelated to migraine; R19.7 Diarrhea, unspecified; E78.00 Pure hypercholesterolemia, unspecified; K21.9 Gastro-esophageal reflux disease without esophagitis; G89.29 Other chronic pain; F41.9 Anxiety disorder, unspecified; F12.90 Cannabis use, unspecified, uncomplicated; Z87.440 Personal history of urinary (tract) infections; Z56.0 Unemployment, unspecified; Z88.8 Allergy status to other drugs, medicaments and biological substances; Z88.6 Allergy status to analgesic agent; Z79.899 Other long term (current) drug therapy
CPT/HCPCS: 36415; 80053; 80305; 81003; 83690; 85025; 96361; 96374; 96375; 99284; J1885; J2060; J2270; J2405; J7030; 96376

== ENCOUNTER 2021-07-05 11:36 | Emergency (ER) | payer MEDICAID ==
[~2021-07-05] VITALS: Ht 188 cm; Wt 100.0 kg
[2021-07-05 12:04] LABS: BASOPHILS % (AUTO) 0.5 % (0-1); EOSINOPHILS # (AUTO) 0.1 X10'3 (0-0.9); EOSINOPHILS % (AUTO) 1.9 % (0-6); HEMATOCRIT 46.2 % (42.0-52.0); HEMOGLOBIN 16.3 g/dl (14.0-17.9); LYMPHOCYTES # (AUTO) 1.1 X10'3 (1.1-4.8); LYMPHOCYTES % (AUTO) 20.5 % (21-51); MEAN CORPUSCULAR HEMOGLOBIN 30.9 PG (27.0-31.0); MEAN CORPUSCULAR HGB CONC 35.2 g/dL (33.0-36.5); MEAN CORPUSCULAR VOLUME 87.5 FL (78-98); MEAN PLATELET VOLUME 8.9 FL (7.4-10.4); MONOCYTES # (AUTO) 0.4 X10'3 (0-0.9); MONOCYTES % (AUTO) 6.5 % (2-12); NEUTROPHILS # (AUTO) 3.9 X10'3 (1.8-7.7); NEUTROPHILS % (AUTO) 70.6 % (42-75); PLATELET COUNT 195 X10'3 (140-440); RED BLOOD COUNT 5.28 X10'6 (4.70-6.10); RED CELL DISTRIBUTION WIDTH 13.3 % (11.5-14.5); WHITE BLOOD COUNT 5.6 X10'3 (4.5-11.0)
[2021-07-05 12:19] LABS: ALANINE AMINOTRANSFERASE 18 U/L (12-78); ALBUMIN 4.3 G/DL (3.4-5.0); ALBUMIN/GLOBULIN RATIO 1.5 (1.1-1.5); ALKALINE PHOSPHATASE 50 IU/L (46-116); ANION GAP 11 (8-16); ASPARTATE AMINO TRANSFERASE 12 U/L (10-37); BILIRUBIN,TOTAL 0.5 MG/DL (0.1-1.0); BLOOD UREA NITROGEN 12 MG/DL (7-18); BUN/CREATININE RATIO 11.9 (5.4-32.0); CALCIUM 8.3 MG/DL (8.5-10.1); CHLORIDE 108 MMOL/L (99-107); CREATININE 1.01 MG/DL (0.60-1.10); GLUCOSE 105 MG/DL (70-104); LIPASE 524 U/L (73-393); POTASSIUM 3.9 MMOL/L (3.5-5.1); SODIUM 142 MMOL/L (135-145); TOTAL CARBON DIOXIDE 23.2 MMOL/L (24-32); TOTAL PROTEIN 7.2 G/DL (6.4-8.2); eGFR 81 ML/MIN
[2021-07-05] MEDS ORDERED: ketorolac trometh. 30mg/ml inj. IV ONE (13:30)
[2021-07-05] MEDS ORDERED: famotidine/PF 10 mg/ml inj IV ONE (13:30)
[2021-07-05] MEDS ORDERED: HYDROcodone/acetaminophen 5mg/325mg tablet PO ONE (13:55)
[2021-07-05 14:00] VITALS: BP 118/93
== END 2021-07-05 14:02 | disposition home or self-care (01) ==
LOC: ER 11:37
DX: K80.50 Calculus of bile duct without cholangitis or cholecystitis without obstruction (principal); E78.00 Pure hypercholesterolemia, unspecified; K21.9 Gastro-esophageal reflux disease without esophagitis; G89.29 Other chronic pain; F12.90 Cannabis use, unspecified, uncomplicated; Z87.440 Personal history of urinary (tract) infections; Z56.0 Unemployment, unspecified; Z88.6 Allergy status to analgesic agent; Z88.8 Allergy status to other drugs, medicaments and biological substances; Z79.899 Other long term (current) drug therapy
CPT/HCPCS: 36415; 80053; 83690; 85025; 96374; 96375; 99284; J1885; J3490

== ENCOUNTER 2021-07-10 11:00 | Emergency (ER) | payer MEDICAID ==
[~2021-07-10] VITALS: Ht 188 cm; Wt 95.5 kg
[2021-07-10 12:05] LABS: BASOPHILS % (AUTO) 0.2 % (0-1); EOSINOPHILS # (AUTO) 0.1 X10'3 (0-0.9); EOSINOPHILS % (AUTO) 0.5 % (0-6); HEMATOCRIT 50.5 % (42.0-52.0); HEMOGLOBIN 17.6 g/dl (14.0-17.9); LYMPHOCYTES # (AUTO) 1.6 X10'3 (1.1-4.8); LYMPHOCYTES % (AUTO) 8.4 % (21-51); MEAN CORPUSCULAR HEMOGLOBIN 30.8 PG (27.0-31.0); MEAN CORPUSCULAR HGB CONC 34.9 g/dL (33.0-36.5); MEAN CORPUSCULAR VOLUME 88.2 FL (78-98); MEAN PLATELET VOLUME 9.4 FL (7.4-10.4); MONOCYTES # (AUTO) 0.9 X10'3 (0-0.9); NEUTROPHILS # (AUTO) 16.5 X10'3 (1.8-7.7); NEUTROPHILS % (AUTO) 85.9 % (42-75); PLATELET COUNT 253 X10'3 (140-440); RED BLOOD COUNT 5.73 X10'6 (4.70-6.10); WHITE BLOOD COUNT 19.2 X10'3 (4.5-11.0)
[2021-07-10 12:21] LABS: ALANINE AMINOTRANSFERASE 19 U/L (12-78); ALBUMIN 4.8 G/DL (3.4-5.0); ALBUMIN/GLOBULIN RATIO 1.5 (1.1-1.5); ALKALINE PHOSPHATASE 55 IU/L (46-116); ANION GAP 17 (8-16); ASPARTATE AMINO TRANSFERASE 14 U/L (10-37); BILIRUBIN,TOTAL 0.8 MG/DL (0.1-1.0); BLOOD UREA NITROGEN 15 MG/DL (7-18); BUN/CREATININE RATIO 12.1 (5.4-32.0); CALCIUM 8.8 MG/DL (8.5-10.1); CHLORIDE 106 MMOL/L (99-107); CREATININE 1.24 MG/DL (0.60-1.10); GLUCOSE 139 MG/DL (70-104); LIPASE 396 U/L (73-393); POTASSIUM 4.4 MMOL/L (3.5-5.1); SODIUM 141 MMOL/L (135-145); TOTAL CARBON DIOXIDE 18.1 MMOL/L (24-32); eGFR 64 ML/MIN
--- NOTE | 2021-07-10 12:32 | NUR ---
DR GUILLAUME MADE AWARE PATIENT IS WRITING IN PAIN IN [facility], UNABLE TO SIT STILL.
--- NOTE | 2021-07-10 12:37 | NUR ---
DR GUILLAUME AWARE PATIENT HAS PERIPHERAL IV PLACED.
--- NOTE | 2021-07-10 12:39 | NUR ---
PATIENT UNABLE TO URINATE AT THIS TIME. AWARE.
[2021-07-10] MEDS ORDERED: normal saline 1000ml 1,000 ML IVB ONE (13:00)
[2021-07-10] MEDS ORDERED: ondansetron/PF 4mg/2ml inj IV ONE (13:45)
[2021-07-10] MEDS ORDERED: meperidine/PF 50mg/ml syringe IV ONE (13:45)
[2021-07-10] MEDS ORDERED: normal saline 1000ML IV soln IVB ONE (13:45)
[2021-07-10] MEDS ORDERED: ketorolac trometh. 30mg/ml inj. IV ONE (13:45)
[2021-07-10] MEDS ORDERED: iohexol 300mg/ml 100ml inj. ONE (13:58)
[2021-07-10] MEDS ORDERED: piperacillin/tazo 3.375gm/50ml 50 ML IV ONE (14:15)
[2021-07-10] MEDS ORDERED: LORazepam 2 mg/ml vial IV ONE (14:20)
[2021-07-10 14:26] LABS: APTT 24 SECONDS (22-32)
--- NOTE | 2021-07-10 14:43 | NUR ---
RADHA BIRD MADE AWARE PATIENT'S PAIN STILL 10/10, UA SAMPLE COLLECTED, FAMILY UPDATED.
[2021-07-10 14:45] LABS: MAGNESIUM 1.8 MG/DL (1.5-2.4)
[2021-07-10 14:46] LABS: ETHANOL < 0.010 GM/DL (0.0-0.010)
[2021-07-10] MEDS ORDERED: morphine 4 MG/ML inj SYRINge IV ONE (14:55)
[2021-07-10 14:57] LABS: CLARITY,URINE SLIGHTLY CLOUDY (Clear); COLOR,URINE YELLOW (Yellow); GLUCOSE, URINE NEGATIVE (Neg); KETONES,URINE TRACE mg/dl (Neg); LEUKOCYTE ESTERASE ,URINE NEGATIVE (Neg); NITRITES, URINE NEGATIVE (Neg); OCCULT BLOOD,URINE NEGATIVE (Neg); PH,URINE 5.5 (4.8-8.0); PROTEIN,URINE NEGATIVE (Neg); UROBILINOGEN,URINE 0.2 E.U/dL (0.2-1.0)
[2021-07-10 15:03] LABS: URINE AMPHETAMINE SCREEN NEGATIVE (Neg); URINE BARBITUATE SCREEN NEGATIVE (Neg); URINE BENZODIAZEPINES SCREEN NEGATIVE (Neg); URINE CANNABINOID SCREEN POSITIVE (Neg); URINE COCAINE SCREEN NEGATIVE (Neg); URINE METHADONE SCREEN NEGATIVE (Neg); URINE OPIATE SCREEN NEGATIVE (Neg); URINE PHENCYCLIDINE SCREEN NEGATIVE (Neg)
[2021-07-10 15:09] LABS: UA COLLECTION TYPE VOIDED
[2021-07-10 15:10] LABS: SQUAMOUS EPITHELIAL CELL,UR FEW /LPF (FEW)
[2021-07-10 15:11] LABS: BACTERIA,URINE 1+ /HPF (Neg); RBC,URINE 0-2 /HPF (0-2); WBC,URINE 0-4 /HPF (0-4)
[2021-07-10] MEDS ORDERED: diphenhydrAMINE 50 mg/ml inj IV ONE (15:15)
[2021-07-10 15:32] LABS: CREATINE KINASE 195 U/L (39-308)
[2021-07-10] MEDS: haloperidol lactate 5mg/ml inj IM ONE ×2 (15:33→15:45)
[2021-07-10 16:23] VITALS: BP 122/83
== END 2021-07-10 16:25 | disposition home or self-care (01) ==
LOC: ER 11:02
DX: R11.2 Nausea with vomiting, unspecified (principal); G89.29 Other chronic pain; R10.12 Left upper quadrant pain; R10.9 Unspecified abdominal pain; E78.00 Pure hypercholesterolemia, unspecified; K21.9 Gastro-esophageal reflux disease without esophagitis; F12.90 Cannabis use, unspecified, uncomplicated; Z87.19 Personal history of other diseases of the digestive system; Z87.442 Personal history of urinary calculi; Z56.0 Unemployment, unspecified; Z88.8 Allergy status to other drugs, medicaments and biological substances; Z79.899 Other long term (current) drug therapy
CPT/HCPCS: 36415; 80053; 80305; 80320; 81001; 82550; 83605; 83690; 83735; 84145; 85025; 85610; 85730; 87040; 93005; 96361; 96365; 96375; 99284; J1200; J1885; J2060; J2175; J2270; J2405; J2543; J7030; 99285; Q9967

== ENCOUNTER 2021-07-13 16:45 | Emergency (ER) | payer MEDICAID ==
[~2021-07-13] VITALS: Ht 188 cm; Wt 100.0 kg
[2021-07-13 16:48] VITALS: BP 150/99
[2021-07-13 17:12] LABS: BASOPHILS % (AUTO) 0.2 % (0-1); EOSINOPHILS % (AUTO) 0 % (0-6); HEMATOCRIT 45.9 % (42.0-52.0); LYMPHOCYTES # (AUTO) 0.4 X10'3 (1.1-4.8); LYMPHOCYTES % (AUTO) 2.5 % (21-51); MEAN CORPUSCULAR HEMOGLOBIN 30.6 PG (27.0-31.0); MEAN CORPUSCULAR HGB CONC 34.9 g/dL (33.0-36.5); MEAN CORPUSCULAR VOLUME 87.7 FL (78-98); MEAN PLATELET VOLUME 8.6 FL (7.4-10.4); MONOCYTES # (AUTO) 0.5 X10'3 (0-0.9); NEUTROPHILS # (AUTO) 14.8 X10'3 (1.8-7.7); NEUTROPHILS % (AUTO) 94.3 % (42-75); PLATELET COUNT 216 X10'3 (140-440); RED BLOOD COUNT 5.23 X10'6 (4.70-6.10); WHITE BLOOD COUNT 15.7 X10'3 (4.5-11.0)
[2021-07-13 17:33] LABS: ALANINE AMINOTRANSFERASE 28 U/L (12-78); ALBUMIN 4.8 G/DL (3.4-5.0); ALBUMIN/GLOBULIN RATIO 1.6 (1.1-1.5); ALKALINE PHOSPHATASE 50 IU/L (46-116); ANION GAP 14 (8-16); ASPARTATE AMINO TRANSFERASE 26 U/L (10-37); BILIRUBIN,TOTAL 1.5 MG/DL (0.1-1.0); BLOOD UREA NITROGEN 15 MG/DL (7-18); BUN/CREATININE RATIO 13.4 (5.4-32.0); CALCIUM 8.9 MG/DL (8.5-10.1); CHLORIDE 104 MMOL/L (99-107); CREATININE 1.12 MG/DL (0.60-1.10); GLUCOSE 117 MG/DL (70-104); LIPASE 117 U/L (73-393); POTASSIUM 3.7 MMOL/L (3.5-5.1); SODIUM 140 MMOL/L (135-145); TOTAL CARBON DIOXIDE 21.6 MMOL/L (24-32); TOTAL PROTEIN 7.8 G/DL (6.4-8.2); eGFR 72 ML/MIN
== END 2021-07-13 19:18 | disposition left against medical advice (07) ==
LOC: ER 16:46
DX: R10.9 Unspecified abdominal pain (principal); Z53.21 Procedure and treatment not carried out due to patient leaving prior to being seen by health care provider
CPT/HCPCS: 36415; 80053; 83690; 85025

== ENCOUNTER 2021-07-19 03:46 | Emergency (ER) | payer MEDICAID ==
[~2021-07-19] VITALS: Ht 188 cm; Wt 97.7 kg
[2021-07-19 04:21] LABS: BASOPHILS % (AUTO) 0.2 % (0-1); EOSINOPHILS # (AUTO) 0.1 X10'3 (0-0.9); EOSINOPHILS % (AUTO) 0.6 % (0-6); HEMATOCRIT 44.4 % (42.0-52.0); HEMOGLOBIN 15.8 g/dl (14.0-17.9); LYMPHOCYTES # (AUTO) 0.8 X10'3 (1.1-4.8); LYMPHOCYTES % (AUTO) 5.1 % (21-51); MEAN CORPUSCULAR HEMOGLOBIN 31.1 PG (27.0-31.0); MEAN CORPUSCULAR HGB CONC 35.6 g/dL (33.0-36.5); MEAN CORPUSCULAR VOLUME 87.4 FL (78-98); MEAN PLATELET VOLUME 8.7 FL (7.4-10.4); MONOCYTES # (AUTO) 0.8 X10'3 (0-0.9); MONOCYTES % (AUTO) 5.2 % (2-12); NEUTROPHILS # (AUTO) 13.3 X10'3 (1.8-7.7); NEUTROPHILS % (AUTO) 88.9 % (42-75); PLATELET COUNT 195 X10'3 (140-440); RED BLOOD COUNT 5.08 X10'6 (4.70-6.10)
[2021-07-19 04:31] LABS: ALBUMIN 4.4 G/DL (3.4-5.0); ANION GAP 6 (8-16); BILIRUBIN,TOTAL 0.8 MG/DL (0.1-1.0); BLOOD UREA NITROGEN 11 MG/DL (7-18); BUN/CREATININE RATIO 11.5 (5.4-32.0); CALCIUM 8.3 MG/DL (8.5-10.1); CHLORIDE 104 MMOL/L (99-107); CREATININE 0.96 MG/DL (0.60-1.10); GLUCOSE 113 MG/DL (70-104); POTASSIUM 3.7 MMOL/L (3.5-5.1); SODIUM 136 MMOL/L (135-145); TOTAL CARBON DIOXIDE 25.6 MMOL/L (24-32); TOTAL PROTEIN 7.1 G/DL (6.4-8.2); eGFR 85 ML/MIN
[2021-07-19 04:32] LABS: ALANINE AMINOTRANSFERASE 17 U/L (12-78); ALBUMIN/GLOBULIN RATIO 1.6 (1.1-1.5); ALKALINE PHOSPHATASE 44 IU/L (46-116); ASPARTATE AMINO TRANSFERASE 11 U/L (10-37); LIPASE 312 U/L (73-393)
[2021-07-19] MEDS ORDERED: diphenhydrAMINE 50 mg/ml inj IV ONE (04:40)
[2021-07-19] MEDS ORDERED: ondansetron/PF 4mg/2ml inj IV ONE (04:40)
[2021-07-19] MEDS ORDERED: haloperidol lactate 5mg/ml inj IM ONE (04:40)
[2021-07-19] MEDS ORDERED: normal saline 1000ml 1,000 ML IV ONE (04:40)
[2021-07-19] MEDS ORDERED: ketorolac trometh. 30mg/ml inj. IV ONE (04:40)
[2021-07-19] MEDS ORDERED: pantoprazole 40MG/NS 100ML BAG 100 ML IV ONE (04:45)
[2021-07-19] MEDS ORDERED: famotidine/PF 10 mg/ml inj IV ONE (04:45)
[2021-07-19 05:35] VITALS: BP 153/130
== END 2021-07-19 05:36 | disposition home or self-care (01) ==
LOC: ER 03:46
DX: R10.84 Generalized abdominal pain (principal); R11.2 Nausea with vomiting, unspecified; E78.00 Pure hypercholesterolemia, unspecified; K21.9 Gastro-esophageal reflux disease without esophagitis; G89.29 Other chronic pain; Z87.440 Personal history of urinary (tract) infections; F12.90 Cannabis use, unspecified, uncomplicated; Z56.0 Unemployment, unspecified; Z88.8 Allergy status to other drugs, medicaments and biological substances; Z79.899 Other long term (current) drug therapy
CPT/HCPCS: 36415; 80053; 83690; 85025; 96365; 96375; 99284; C9113; J1200; J1885; J2405; J3490; J7030

== ENCOUNTER 2021-09-21 09:36 | Emergency (ER) | payer MEDICAID ==
[~2021-09-21] VITALS: Ht 188 cm; Wt 100.0 kg
[2021-09-21 09:42] VITALS: BP 107/84
[2021-09-21 10:12] LABS: CLARITY,URINE CLEAR (Clear); COLOR,URINE YELLOW (Yellow); GLUCOSE, URINE NEGATIVE (Neg); KETONES,URINE NEGATIVE (Neg); LEUKOCYTE ESTERASE ,URINE NEGATIVE (Neg); NITRITES, URINE NEGATIVE (Neg); OCCULT BLOOD,URINE NEGATIVE (Neg); PROTEIN,URINE NEGATIVE (Neg); UROBILINOGEN,URINE 0.2 E.U/dL (0.2-1.0)
[2021-09-21 10:14] LABS: UA COLLECTION TYPE CLN CATCH MIDSTREAM
== END 2021-09-21 10:23 | disposition left against medical advice (07) ==
LOC: ER 09:36
DX: R10.9 Unspecified abdominal pain (principal); Z53.21 Procedure and treatment not carried out due to patient leaving prior to being seen by health care provider
CPT/HCPCS: 81003

== ENCOUNTER 2021-10-23 09:14 | Emergency (ER) | payer MEDICAID ==
[~2021-10-23] VITALS: Ht 180.3 cm; Wt 90.0 kg
[2021-10-23] MEDS ORDERED: normal saline 1000ML IV soln IVB ONE ×2 (09:40→10:40)
[2021-10-23] MEDS ORDERED: famotidine/PF 10 mg/ml inj IV ONE (09:40)
[2021-10-23] MEDS ORDERED: LORazepam 2 mg/ml vial IV ONE (09:40)
[2021-10-23] MEDS ORDERED: haloperidol lactate 5mg/ml inj IM ONE (09:40)
[2021-10-23 10:11] LABS: BASOPHILS % (AUTO) 0.1 % (0-1); EOSINOPHILS # (AUTO) 0.1 X10'3 (0-0.9); EOSINOPHILS % (AUTO) 0.8 % (0-6); HEMATOCRIT 48.4 % (42.0-52.0); HEMOGLOBIN 16.6 g/dl (14.0-17.9); LYMPHOCYTES # (AUTO) 1.2 X10'3 (1.1-4.8); LYMPHOCYTES % (AUTO) 8.6 % (21-51); MEAN CORPUSCULAR HEMOGLOBIN 31.2 PG (27.0-31.0); MEAN CORPUSCULAR HGB CONC 34.3 g/dL (33.0-36.5); MEAN CORPUSCULAR VOLUME 90.8 FL (78-98); MEAN PLATELET VOLUME 9.5 FL (7.4-10.4); MONOCYTES # (AUTO) 0.8 X10'3 (0-0.9); MONOCYTES % (AUTO) 6.1 % (2-12); NEUTROPHILS # (AUTO) 11.5 X10'3 (1.8-7.7); NEUTROPHILS % (AUTO) 84.4 % (42-75); PLATELET COUNT 206 X10'3 (140-440); RED BLOOD COUNT 5.34 X10'6 (4.70-6.10); RED CELL DISTRIBUTION WIDTH 13.4 % (11.5-14.5); WHITE BLOOD COUNT 13.6 X10'3 (4.5-11.0)
[2021-10-23] MEDS ORDERED: mag hydrox/Alum hydrox/simeth 30ml oral suspension PO ONE (10:20)
[2021-10-23] MEDS ORDERED: sucralfate 1 gm tablet PO ONE (10:20)
[2021-10-23] MEDS ORDERED: LIDOcaine Viscous 15ml cup MM ONE (10:20)
[2021-10-23 10:28] LABS: ALANINE AMINOTRANSFERASE 16 U/L (12-78); ALBUMIN 4.2 G/DL (3.4-5.0); ALBUMIN/GLOBULIN RATIO 1.2 (1.1-1.5); ALKALINE PHOSPHATASE 47 IU/L (46-116); ANION GAP 17 (8-16); ASPARTATE AMINO TRANSFERASE 16 U/L (10-37); BILIRUBIN,TOTAL 0.7 MG/DL (0.1-1.0); BLOOD UREA NITROGEN 14 MG/DL (7-18); BUN/CREATININE RATIO 13.2 (5.4-32.0); CHLORIDE 106 MMOL/L (99-107); CREATININE 1.06 MG/DL (0.60-1.10); GLUCOSE 118 MG/DL (70-104); LIPASE 290 U/L (73-393); POTASSIUM 4.1 MMOL/L (3.5-5.1); SODIUM 139 MMOL/L (135-145); TOTAL CARBON DIOXIDE 16.5 MMOL/L (24-32); TOTAL PROTEIN 7.6 G/DL (6.4-8.2); eGFR 76 ML/MIN
--- NOTE | 2021-10-23 10:45 | NUR ---
PATIENT REFUSED HIS ORDERED MEDS - MALOOX/VISCOUS/CARAFATE. TONO MONREAL MADE AWARE
[2021-10-23] MEDS ORDERED: dicyclomine 10 MG capsule PO ONE (10:50)
[2021-10-23] MEDS ORDERED: ondansetron/PF 4mg/2ml inj IV ONE (10:50)
[2021-10-23 10:58] VITALS: BP 146/80
[2021-10-23] MEDS ORDERED: ketorolac trometh. 30mg/ml inj. IV ONE (11:25)
== END 2021-10-23 12:30 | disposition home or self-care (01) ==
LOC: ER 09:15
DX: F50.89 Other specified eating disorder (principal); E78.00 Pure hypercholesterolemia, unspecified; K21.9 Gastro-esophageal reflux disease without esophagitis; G89.29 Other chronic pain; F41.9 Anxiety disorder, unspecified; Z56.0 Unemployment, unspecified; Z88.8 Allergy status to other drugs, medicaments and biological substances; Z79.899 Other long term (current) drug therapy; Z88.6 Allergy status to analgesic agent
CPT/HCPCS: 36415; 80053; 83690; 85025; 96361; 96372; 96374; 96375; 99284; J1630; J1885; J2060; J2405; J3490; J7030

== ENCOUNTER 2022-05-05 08:23 | Emergency (ER) | payer MEDICAID ==
[~2022-05-05] VITALS: Ht 188 cm; Wt 104.5 kg
[2022-05-05] MEDS ORDERED: ondansetron 4mg rapidly disintigrating tab PO ONE (10:00)
[2022-05-05] MEDS ORDERED: pantoprazole 40mg Tablet.DR PO ONE (10:00)
[2022-05-05] MEDS ORDERED: mag hydrox/Alum hydrox/simeth 30ml oral suspension PO ONE (10:15)
[2022-05-05 10:27] LABS: CLARITY,URINE CLEAR (Clear); COLOR,URINE YELLOW (Yellow); GLUCOSE, URINE NEGATIVE (Neg); KETONES,URINE NEGATIVE (Neg); LEUKOCYTE ESTERASE ,URINE NEGATIVE (Neg); NITRITES, URINE NEGATIVE (Neg); OCCULT BLOOD,URINE NEGATIVE (Neg); PROTEIN,URINE NEGATIVE (Neg); UROBILINOGEN,URINE 0.2 E.U/dL (0.2-1.0)
[2022-05-05 10:29] LABS: UA COLLECTION TYPE VOIDED
[2022-05-05 10:31] LABS: BASOPHILS # (AUTO) 0.1 X10'3 (0-0.2); BASOPHILS % (AUTO) 0.5 % (0-1); EOSINOPHILS # (AUTO) 0.2 X10'3 (0-0.9); EOSINOPHILS % (AUTO) 1.5 % (0-6); HEMATOCRIT 44.6 % (42.0-52.0); HEMOGLOBIN 15.9 g/dl (14.0-17.9); LYMPHOCYTES # (AUTO) 1.1 X10'3 (1.1-4.8); LYMPHOCYTES % (AUTO) 7.5 % (21-51); MEAN CORPUSCULAR HEMOGLOBIN 31.2 PG (27.0-31.0); MEAN CORPUSCULAR HGB CONC 35.6 g/dL (33.0-36.5); MEAN CORPUSCULAR VOLUME 87.5 FL (78-98); MEAN PLATELET VOLUME 8.2 FL (7.4-10.4); MONOCYTES # (AUTO) 0.9 X10'3 (0-0.9); MONOCYTES % (AUTO) 5.8 % (2-12); NEUTROPHILS # (AUTO) 12.7 X10'3 (1.8-7.7); NEUTROPHILS % (AUTO) 84.7 % (42-75); PLATELET COUNT 193 X10'3 (140-440); RED CELL DISTRIBUTION WIDTH 13.5 % (11.5-14.5)
[2022-05-05] MEDS ORDERED: LIDOcaine Viscous 15ml cup MM STA (10:45)
[2022-05-05] MEDS ORDERED: HYDROcodone/acetaminophen 5mg/325mg tablet PO ONE (10:45)
[2022-05-05 10:47] LABS: ALANINE AMINOTRANSFERASE 22 U/L (12-78); ALBUMIN 4.4 G/DL (3.4-5.0); ALBUMIN/GLOBULIN RATIO 1.4 (1.1-1.5); ALKALINE PHOSPHATASE 67 IU/L (46-116); ANION GAP 9 (8-16); ASPARTATE AMINO TRANSFERASE 15 U/L (10-37); BILIRUBIN,TOTAL 0.8 MG/DL (0.1-1.0); BLOOD UREA NITROGEN 12 MG/DL (7-18); BUN/CREATININE RATIO 13.5 (5.4-32.0); CALCIUM 8.9 MG/DL (8.5-10.1); CHLORIDE 104 MMOL/L (99-107); CREATININE 0.89 MG/DL (0.60-1.10); GLUCOSE 110 MG/DL (70-104); POTASSIUM 4.2 MMOL/L (3.5-5.1); SODIUM 139 MMOL/L (135-145); TOTAL CARBON DIOXIDE 25.7 MMOL/L (24-32); TOTAL PROTEIN 7.5 G/DL (6.4-8.2); eGFR > 90 ML/MIN
[2022-05-05 11:08] VITALS: BP 120/84
[2022-05-05] MEDS ORDERED: HYDR-3965 PO ×2 (12:16→12:20)
[2022-05-05] MEDS ORDERED: ONDA8TAB13 PO ×2 (12:16→12:20)
--- NOTE | 2022-05-05 12:44 | NUR ---
I AGREE WITH THE ASSESSMENT PER Joel GARRISON LVN.
[2022-05-06 06:17] LABS: OCCULT BLOOD STOOL NEGATIVE (Neg)
== END 2022-05-05 12:50 | disposition home or self-care (01) ==
LOC: ER 08:23
DX: K29.00 Acute gastritis without bleeding (principal); K64.0 First degree hemorrhoids; E78.00 Pure hypercholesterolemia, unspecified; K21.9 Gastro-esophageal reflux disease without esophagitis; G89.29 Other chronic pain; F41.9 Anxiety disorder, unspecified; Z88.8 Allergy status to other drugs, medicaments and biological substances; Z88.6 Allergy status to analgesic agent; Z79.899 Other long term (current) drug therapy
CPT/HCPCS: 36415; 80053; 81003; 82272; 84484; 85025; 93005; 99284

== ENCOUNTER 2022-12-31 11:22 | Emergency (ER) | payer MEDICAID ==
[~2022-12-31] VITALS: Ht 190.5 cm; Wt 131.8 kg
[~2022-12-31 11:22] MED LIST changes: +HYDR-3965 PO; +ONDA8TAB13 PO
[2022-12-31 11:36] VITALS: BP 145/92; PULSE 90; RESP 19; TEMP 97.8; O2SAT 97
[2022-12-31 12:02] LABS: BASOPHILS % (AUTO) 0.4 % (0-1); EOSINOPHILS # (AUTO) 0.1 X10'3 (0-0.9); EOSINOPHILS % (AUTO) 1.9 % (0-6); HEMATOCRIT 45.6 % (42.0-52.0); HEMOGLOBIN 15.9 g/dl (14.0-17.9); LYMPHOCYTES # (AUTO) 1.3 X10'3 (1.1-4.8); LYMPHOCYTES % (AUTO) 16.6 % (21-51); MEAN CORPUSCULAR HGB CONC 34.9 g/dL (33.0-36.5); MEAN CORPUSCULAR VOLUME 88.8 FL (78-98); MEAN PLATELET VOLUME 8.4 FL (7.4-10.4); MONOCYTES # (AUTO) 0.4 X10'3 (0-0.9); MONOCYTES % (AUTO) 5.8 % (2-12); NEUTROPHILS # (AUTO) 5.7 X10'3 (1.8-7.7); NEUTROPHILS % (AUTO) 75.3 % (42-75); PLATELET COUNT 224 X10'3 (140-440); RED BLOOD COUNT 5.14 X10'6 (4.70-6.10); RED CELL DISTRIBUTION WIDTH 13.8 % (11.5-14.5); WHITE BLOOD COUNT 7.6 X10'3 (4.5-11.0)
[2022-12-31 12:08] LABS: BILIRUBIN,URINE NEGATIVE (Neg); CLARITY,URINE CLEAR (Clear); COLOR,URINE YELLOW (Yellow); GLUCOSE, URINE NEGATIVE (Neg); KETONES,URINE NEGATIVE (Neg); LEUKOCYTE ESTERASE ,URINE NEGATIVE (Neg); NITRITES, URINE NEGATIVE (Neg); OCCULT BLOOD,URINE NEGATIVE (Neg); PROTEIN,URINE NEGATIVE (Neg); UROBILINOGEN,URINE 0.2 E.U/dL (0.2-1.0)
[2022-12-31 12:18] LABS: ALANINE AMINOTRANSFERASE 45 U/L (12-78); ALBUMIN 4.2 G/DL (3.4-5.0); ALBUMIN/GLOBULIN RATIO 1.1 (1.1-1.5); ALKALINE PHOSPHATASE 69 IU/L (46-116); ANION GAP 9 (8-16); ASPARTATE AMINO TRANSFERASE 30 U/L (10-37); BILIRUBIN,TOTAL 0.6 MG/DL (0.1-1.0); BLOOD UREA NITROGEN 10 MG/DL (7-18); BUN/CREATININE RATIO 10.3 (10.0-20.0); CALCIUM 8.9 MG/DL (8.5-10.1); CHLORIDE 103 MMOL/L (99-107); CREATININE 0.97 MG/DL (0.60-1.10); GLUCOSE 123 MG/DL (70-104); POTASSIUM 4.2 MMOL/L (3.5-5.1); SODIUM 136 MMOL/L (135-145); TOTAL CARBON DIOXIDE 23.9 MMOL/L (24-32); TOTAL PROTEIN 7.9 G/DL (6.4-8.2); eCRCL 116 ML/MIN; eGFR 84 ML/MIN
[2022-12-31 12:19] LABS: UA COLLECTION TYPE CLN CATCH MIDSTREAM
[2022-12-31 12:28] LABS: LIPASE 50 U/L (16-77)
== END 2022-12-31 16:11 | disposition left against medical advice (07) ==
LOC: ER 11:23
DX: R10.9 Unspecified abdominal pain (principal); Z53.21 Procedure and treatment not carried out due to patient leaving prior to being seen by health care provider
CPT/HCPCS: 36415; 80053; 81003; 83690; 85025; 99281

== ENCOUNTER 2023-01-28 09:33 | Emergency (ER) | payer MEDICAID ==
[~2023-01-28] VITALS: Ht 188 cm; Wt 127.3 kg
[2023-01-28 10:00] LABS: EOSINOPHILS # (AUTO) 0.1 X10'3 (0-0.9); LYMPHOCYTES # (AUTO) 0.8 X10'3 (1.1-4.8); MONOCYTES # (AUTO) 0.8 X10'3 (0-0.9); WHITE BLOOD COUNT 10.8 X10'3 (4.5-11.0)
[2023-01-28 10:01] LABS: BASOPHILS % (AUTO) 0.3 % (0-1); HEMATOCRIT 44.6 % (42.0-52.0); HEMOGLOBIN 15.6 g/dl (14.0-17.9); LYMPHOCYTES % (AUTO) 7.7 % (21-51); MEAN CORPUSCULAR HEMOGLOBIN 30.8 PG (27.0-31.0); MEAN PLATELET VOLUME 8.4 FL (7.4-10.4); MONOCYTES % (AUTO) 7.5 % (2-12); NEUTROPHILS # (AUTO) 9.1 X10'3 (1.8-7.7); NEUTROPHILS % (AUTO) 83.5 % (42-75); PLATELET COUNT 212 X10'3 (140-440); RED BLOOD COUNT 5.07 X10'6 (4.70-6.10); RED CELL DISTRIBUTION WIDTH 13.5 % (11.5-14.5)
[2023-01-28 10:15] LABS: ALANINE AMINOTRANSFERASE 24 U/L (12-78); ALBUMIN 4.2 G/DL (3.4-5.0); ALBUMIN/GLOBULIN RATIO 1.3 (1.1-1.5); ALKALINE PHOSPHATASE 76 IU/L (46-116); ANION GAP 10 (8-16); ASPARTATE AMINO TRANSFERASE 18 U/L (10-37); BILIRUBIN,TOTAL 0.5 MG/DL (0.1-1.0); BLOOD UREA NITROGEN 10 MG/DL (7-18); BUN/CREATININE RATIO 8.8 (10.0-20.0); CALCIUM 8.8 MG/DL (8.5-10.1); CHLORIDE 102 MMOL/L (99-107); CREATININE 1.14 MG/DL (0.60-1.10); GLUCOSE 127 MG/DL (70-104); LIPASE 42 U/L (16-77); SODIUM 136 MMOL/L (135-145); TOTAL CARBON DIOXIDE 23.7 MMOL/L (24-32); TOTAL PROTEIN 7.4 G/DL (6.4-8.2); eCRCL 96 ML/MIN; eGFR 70 ML/MIN
[2023-01-28] MEDS ORDERED: ondansetron/PF 4mg/2ml inj IV ONE (10:50)
[2023-01-28] MEDS ORDERED: normal saline 1000ML IV soln IVB ONE (10:50)
[2023-01-28] MEDS: morphine 4 MG/ML inj SYRINge IV PRN ×2 (11:11→12:03)
[2023-01-28 12:53] LABS: BILIRUBIN,URINE NEGATIVE (Neg); CLARITY,URINE CLEAR (Clear); COLOR,URINE YELLOW (Yellow); GLUCOSE, URINE NEGATIVE (Neg); KETONES,URINE NEGATIVE (Neg); LEUKOCYTE ESTERASE ,URINE NEGATIVE (Neg); NITRITES, URINE NEGATIVE (Neg); OCCULT BLOOD,URINE NEGATIVE (Neg); PH,URINE 5.5 (4.8-8.0); PROTEIN,URINE NEGATIVE (Neg); UROBILINOGEN,URINE 0.2 E.U/dL (0.2-1.0)
[2023-01-28 13:19] LABS: UA COLLECTION TYPE URINAL
[2023-01-28] MEDS ORDERED: HYDR-3965 PO (13:22)
[2023-01-28] MEDS ORDERED: ONDA4TAB12 PO (13:22)
--- NOTE | 2023-01-28 13:22 | NUR ---
pt c/o pain and want pain reilef before d/c ,notified dr garcia verbal order to give norco 10-325 mg po once.
[2023-01-28] MEDS ORDERED: HYDROcodone/acetaminophen 10/325mg tab PO ONE (13:30)
[2023-01-28 13:47] VITALS: BP 150/90; PULSE 90; RESP 17; TEMP 98; O2SAT 98
== END 2023-01-28 13:50 | disposition home or self-care (01) ==
LOC: ER 09:34
DX: K52.9 Noninfective gastroenteritis and colitis, unspecified (principal); E78.00 Pure hypercholesterolemia, unspecified; K21.9 Gastro-esophageal reflux disease without esophagitis; F41.9 Anxiety disorder, unspecified; Z88.8 Allergy status to other drugs, medicaments and biological substances; Z88.5 Allergy status to narcotic agent; Z79.899 Other long term (current) drug therapy; Z88.6 Allergy status to analgesic agent
CPT/HCPCS: 36415; 74176; 80053; 81003; 83690; 84484; 85025; 96361; 96374; 96375; 96376; 99285; J2270; J2405; J7030

== ENCOUNTER 2023-05-10 10:25 | Inpatient (IN) | payer MEDICAID ==
[~2023-05-10] VITALS: Ht 190.5 cm; Wt 130.1 kg
[2023-05-10] VITALS (16 sets, daily range): BP systolic 107–139; BP diastolic 62–89; PULSE 74–91; RESP 12–18; TEMP 98.3–98.6; O2SAT 92–99
[2023-05-10] MEDS: ondansetron/PF 4mg/2ml inj IV ONE (11:58)
[2023-05-10] MEDS: morphine 4 MG/ML inj SYRINge IV ONE (11:59)
[2023-05-10] MEDS ORDERED: meperidine/PF 25mg/ml syringe IV PRN ×2 (12:10)
[2023-05-10] MEDS ORDERED: morphine 2 MG/ML inj. syringe IV PRN (12:10)
[2023-05-10] MEDS ORDERED: enalaprilat dihydrate 2.5mg/2ml vial IV PRN (12:10)
[2023-05-10] MEDS ORDERED: ondansetron/PF 4mg/2ml inj IV PRN ×2 (12:10→12:30)
[2023-05-10] MEDS ORDERED: labetalol 20mg/4ml (5mg/ml) syringe IV PRN (12:10)
[2023-05-10] MEDS ORDERED: proCHLORperazine 10 MG/2 ml inj IV PRN (12:10)
[2023-05-10 12:16] LABS: BASOPHILS # (AUTO) 0.1 X10'3 (0-0.2); EOSINOPHILS # (AUTO) 0.1 X10'3 (0-0.9); EOSINOPHILS % (AUTO) 0.7 % (0-6); MONOCYTES # (AUTO) 1.2 X10'3 (0-0.9)
[2023-05-10 12:17] LABS: BASOPHILS % (AUTO) 0.7 % (0-1); HEMATOCRIT 44.1 % (42.0-52.0); HEMOGLOBIN 15.3 g/dl (14.0-17.9); LYMPHOCYTES % (AUTO) 9.1 % (21-51); MEAN CORPUSCULAR HEMOGLOBIN 30.3 PG (27.0-31.0); MEAN CORPUSCULAR HGB CONC 34.8 g/dL (33.0-36.5); MEAN PLATELET VOLUME 8.5 FL (7.4-10.4); MONOCYTES % (AUTO) 10.6 % (2-12); NEUTROPHILS # (AUTO) 9.1 X10'3 (1.8-7.7); NEUTROPHILS % (AUTO) 78.9 % (42-75); PLATELET COUNT 199 X10'3 (140-440); RED BLOOD COUNT 5.07 X10'6 (4.70-6.10); RED CELL DISTRIBUTION WIDTH 13.9 % (11.5-14.5); WHITE BLOOD COUNT 11.5 X10'3 (4.5-11.0)
[2023-05-10] MEDS ORDERED: BUPIVAcaine 2.5mg/ml inj 50ml vial (contains preservative) ONE (12:17)
[2023-05-10] MEDS ORDERED: HYDROcodone/acetaminophen 5mg/325mg tablet PO PRN (12:30)
[2023-05-10] MEDS ORDERED: magnesium hydroxide 30ml (MOM) UD suspension PO PRN (12:30)
[2023-05-10] MEDS ORDERED: potassium Cl 40MEQ/1/2NS 520ml 520 ML IV PRN (12:30)
[2023-05-10] MEDS ORDERED: magnesium Cl slow-release 64mg tablet PO PRN (12:30)
[2023-05-10] MEDS ORDERED: mag hydrox/Alum hydrox/simeth 30ml oral suspension PO PRN (12:30)
[2023-05-10] MEDS ORDERED: magnesium 4gm in 100ml NS 100 ML IV PRN (12:30)
[2023-05-10] MEDS ORDERED: HYDROmorphone/PF 0.2 MG/ML SYRINGE IV PRN (12:30)
[2023-05-10] MEDS ORDERED: magnesium 2GM in 50ml NS 50 ML IV PRN (12:30)
[2023-05-10] MEDS ORDERED: HYDROmorphone inj. 0.5 MG/0.5 ML DISP.SYRIN IV PRN (12:30)
[2023-05-10] MEDS ORDERED: potassium Cl 20 mEq SR tablet PO PRN ×2 (12:30)
[2023-05-10] MEDS ORDERED: acetaminophen 325mg tablet PO PRN ×2 (12:30)
[2023-05-10] MEDS: ringers solution, lacted 1,000 ML IV SCH (12:34)
[2023-05-10 12:47] LABS: BILIRUBIN,URINE NEGATIVE (Neg); CLARITY,URINE CLEAR (Clear); COLOR,URINE YELLOW (Yellow); GLUCOSE, URINE NEGATIVE (Neg); KETONES,URINE NEGATIVE (Neg); LEUKOCYTE ESTERASE ,URINE NEGATIVE (Neg); NITRITES, URINE NEGATIVE (Neg); OCCULT BLOOD,URINE NEGATIVE (Neg); PH,URINE 6.5 (4.8-8.0); PROTEIN,URINE NEGATIVE (Neg); UROBILINOGEN,URINE 0.2 E.U/dL (0.2-1.0)
[2023-05-10 12:51] LABS: UA COLLECTION TYPE CLN CATCH MIDSTREAM
[2023-05-10] MEDS ORDERED: sevoflurane 250ml liquid IH ONE (12:52)
[2023-05-10] MEDS ORDERED: LIDOcaine 2% (20mg/ml) 5ml vial ONE (12:52)
[2023-05-10] MEDS ORDERED: BUPIVAcaine/dex-water/PF 7.5 mg/ml 2ml ampul ONE (12:52)
[2023-05-10 12:55] LABS: ALANINE AMINOTRANSFERASE 30 U/L (12-78); ALBUMIN 4.1 G/DL (3.4-5.0); ALBUMIN/GLOBULIN RATIO 1.2 (1.1-1.5); ALKALINE PHOSPHATASE 74 IU/L (46-116); ANION GAP 13 (8-16); ASPARTATE AMINO TRANSFERASE 17 U/L (10-37); BILIRUBIN,TOTAL 0.7 MG/DL (0.1-1.0); BLOOD UREA NITROGEN 13 MG/DL (7-18); BUN/CREATININE RATIO 12.7 (10.0-20.0); CALCIUM 8.4 MG/DL (8.5-10.1); CHLORIDE 104 MMOL/L (99-107); CREATININE 1.02 MG/DL (0.60-1.10); GLUCOSE 117 MG/DL (70-104); POTASSIUM 3.9 MMOL/L (3.5-5.1); SODIUM 139 MMOL/L (135-145); TOTAL CARBON DIOXIDE 22.4 MMOL/L (24-32); TOTAL PROTEIN 7.5 G/DL (6.4-8.2); eCRCL 109 ML/MIN; eGFR 79 ML/MIN
[2023-05-10] MEDS ORDERED: MIDAZolam 1 MG/ML 5ML VIAL ONE (13:02)
[2023-05-10] MEDS ORDERED: ceFAZolin 1000mg inj ONE ×2 (13:34)
[2023-05-10] MEDS ORDERED: propofol inj 20 ML IV ONE (13:34)
[2023-05-10] MEDS ORDERED: morphine 10mg/ml inj. ONE (13:34)
[2023-05-10] MEDS: BUPIVAcaine/PF 2.5 mg/ml (0.25%) 30ml vial IJ ONE (14:00)
[2023-05-10] MEDS ORDERED: mupirocin 2% ointment 22GM ONE (14:04)
[2023-05-10] MEDS ORDERED: bacitracin 15gm ointment TP ONE (14:04)
[2023-05-10] MEDS ORDERED: ondansetron/PF 4mg/2ml inj ONE (14:05)
[2023-05-10] MEDS ORDERED: dexamethasone sod phosphate 4mg/ml inj. ONE (14:05)
[2023-05-10] MEDS ORDERED: acetaminophen 1,000mg/100ml IV 100 ML IV ONE (14:07)
[2023-05-10] MEDS ORDERED: ketorolac trometh. 30mg/ml inj. ONE (14:09)
[2023-05-10] MEDS: meperidine/PF 25mg/ml syringe IV PRN (15:16)
[2023-05-10] MEDS: HYDROcodone/acetaminophen 10/325mg tab PO PRN (15:20)
[2023-05-10] MEDS: morphine 4 MG/ML inj SYRINge IV PRN (15:26)
[2023-05-10] MEDS: HYDROcodone/acetaminophen 10/325mg tab PO STA (15:55)
[2023-05-10] MEDS: HYDROmorphone inj. 0.5 MG/0.5 ML DISP.SYRIN IV STA ×2 (15:56→16:21)
[2023-05-10] MEDS: normal saline 1000ml 1,000 ML IV SCH (17:00)
[2023-05-10] MEDS ORDERED: OXYC-150 PO (18:24)
[2023-05-10] MEDS ORDERED: docusate sod 100mg capsule PO SCH (20:00)
[2023-05-10] MEDS ORDERED: K and/or MAG REPLACEMENT MC SCH (20:00)
[2023-05-10] MEDS ORDERED: temazepam 15mg capsule PO PRN (21:00)
== END 2023-05-10 18:56 | disposition home or self-care (01) | DRG 483 ==
LOC: ER 10:25 → ED HOLD 12:30 → ORTHO 4S 16:30
PROVIDERS: ADMIT Family Medicine; ATTEND Family Medicine
PROC: 0VBF0ZZ Excision of Right Spermatic Cord, Open Approach (ICD-10-PCS; 2023-05-10)
PROC: 0VB90ZZ Excision of Right Testis, Open Approach (ICD-10-PCS; principal; 2023-05-10 12:52)
DX: D17.6 Benign lipomatous neoplasm of spermatic cord (principal); E78.00 Pure hypercholesterolemia, unspecified; K86.1 Other chronic pancreatitis; N50.89 Other specified disorders of the male genital organs; N43.3 Hydrocele, unspecified; F41.1 Generalized anxiety disorder; K21.9 Gastro-esophageal reflux disease without esophagitis; G89.29 Other chronic pain; Z87.440 Personal history of urinary (tract) infections; Z56.0 Unemployment, unspecified; Z88.8 Allergy status to other drugs, medicaments and biological substances; Z83.3 Family history of diabetes mellitus; Z88.4 Allergy status to anesthetic agent; Z88.6 Allergy status to analgesic agent
CPT/HCPCS: 36415; 76870; 80053; 81003; 85025; 93976; 99285; A4215; A4618; A4620; A6449; A7000; G0378; J0131; J0690; J1100; J1170; J1885; J2175; J2250; J2270; J2274; J2405; J2704; J3490; J7030; J7120

== ENCOUNTER 2023-06-27 09:43 | Emergency (ER) | payer MEDICAID ==
[~2023-06-27] VITALS: Ht 160 cm; Wt 129.5 kg
[~2023-06-27 09:43] MED LIST changes: -NO HOME MEDS; +OXYC-150 PO
[2023-06-27 09:49] VITALS: TEMP 97.6
[2023-06-27] MEDS: morphine 4 MG/ML inj SYRINge IV ONE (10:38)
[2023-06-27] MEDS: normal saline 1000ML IV soln IVB ONE (10:39)
[2023-06-27] MEDS: ondansetron/PF 4mg/2ml inj IV ONE (10:39)
[2023-06-27 10:54] LABS: BASOPHILS # (AUTO) 0.1 X10'3 (0-0.2); BASOPHILS % (AUTO) 0.9 % (0-1); EOSINOPHILS # (AUTO) 0.2 X10'3 (0-0.9); EOSINOPHILS % (AUTO) 2.1 % (0-6); HEMOGLOBIN 15.3 g/dl (14.0-17.9); LYMPHOCYTES # (AUTO) 1.6 X10'3 (1.1-4.8); LYMPHOCYTES % (AUTO) 22.1 % (21-51); MEAN CORPUSCULAR HEMOGLOBIN 30.4 PG (27.0-31.0); MEAN CORPUSCULAR HGB CONC 34.7 g/dL (33.0-36.5); MEAN CORPUSCULAR VOLUME 87.6 FL (78-98); MEAN PLATELET VOLUME 8.3 FL (7.4-10.4); MONOCYTES # (AUTO) 0.6 X10'3 (0-0.9); NEUTROPHILS # (AUTO) 4.9 X10'3 (1.8-7.7); NEUTROPHILS % (AUTO) 66.9 % (42-75); PLATELET COUNT 233 X10'3 (140-440); RED BLOOD COUNT 5.02 X10'6 (4.70-6.10); RED CELL DISTRIBUTION WIDTH 14.1 % (11.5-14.5); WHITE BLOOD COUNT 7.3 X10'3 (4.5-11.0)
[2023-06-27 11:10] LABS: ALBUMIN 3.9 G/DL (3.4-5.0); ANION GAP 10 (8-16); CALCIUM 8.7 MG/DL (8.5-10.1); CHLORIDE 104 MMOL/L (99-107); GLUCOSE 98 MG/DL (70-104); LIPASE 66 U/L (16-77); POTASSIUM 4.2 MMOL/L (3.5-5.1); SODIUM 137 MMOL/L (135-145); TOTAL CARBON DIOXIDE 22.7 MMOL/L (24-32); eCRCL 83 ML/MIN; eGFR > 90 ML/MIN
[2023-06-27 11:19] LABS: BLOOD UREA NITROGEN 12 MG/DL (7-18); BUN/CREATININE RATIO 13.3 (10.0-20.0)
[2023-06-27] MEDS ORDERED: OXYC-145 PO (11:33)
[2023-06-27 11:49] VITALS: BP 114/82; PULSE 66; RESP 17; O2SAT 97
== END 2023-06-27 11:45 | disposition home or self-care (01) ==
LOC: ER 09:44
DX: R10.12 Left upper quadrant pain (principal); E78.00 Pure hypercholesterolemia, unspecified; G89.29 Other chronic pain; F41.9 Anxiety disorder, unspecified; F12.90 Cannabis use, unspecified, uncomplicated; Z56.0 Unemployment, unspecified; Z88.8 Allergy status to other drugs, medicaments and biological substances; Z79.899 Other long term (current) drug therapy; Z79.2 Long term (current) use of antibiotics
CPT/HCPCS: 36415; 80048; 83690; 85025; 96361; 96374; 96375; 99284; J2270; J2405; J7030

== ENCOUNTER 2023-07-29 23:47 | Emergency (ER) | payer MEDICAID ==
[~2023-07-29] VITALS: Ht 188 cm; Wt 120.0 kg
[~2023-07-29 23:47] MED LIST changes: +OXYC-145 PO
[2023-07-30 00:19] LABS: BASOPHILS % (AUTO) 0.4 % (0-1); EOSINOPHILS # (AUTO) 0.1 X10'3 (0-0.9); EOSINOPHILS % (AUTO) 1.1 % (0-6); HEMATOCRIT 44.4 % (42.0-52.0); HEMOGLOBIN 15.6 g/dl (14.0-17.9); LYMPHOCYTES # (AUTO) 0.8 X10'3 (1.1-4.8); LYMPHOCYTES % (AUTO) 9.6 % (21-51); MEAN CORPUSCULAR HEMOGLOBIN 30.4 PG (27.0-31.0); MEAN CORPUSCULAR VOLUME 86.8 FL (78-98); MEAN PLATELET VOLUME 8.1 FL (7.4-10.4); MONOCYTES # (AUTO) 0.6 X10'3 (0-0.9); MONOCYTES % (AUTO) 6.7 % (2-12); NEUTROPHILS # (AUTO) 7.1 X10'3 (1.8-7.7); NEUTROPHILS % (AUTO) 82.2 % (42-75); PLATELET COUNT 204 X10'3 (140-440); RED BLOOD COUNT 5.12 X10'6 (4.70-6.10); RED CELL DISTRIBUTION WIDTH 14.4 % (11.5-14.5); WHITE BLOOD COUNT 8.7 X10'3 (4.5-11.0)
[2023-07-30 00:31] LABS: ALANINE AMINOTRANSFERASE 35 U/L (12-78); ALBUMIN 4.1 G/DL (3.4-5.0); ALBUMIN/GLOBULIN RATIO 1.2 (1.1-1.5); ALKALINE PHOSPHATASE 76 IU/L (46-116); ANION GAP 10 (8-16); ASPARTATE AMINO TRANSFERASE 16 U/L (10-37); BILIRUBIN,TOTAL 0.7 MG/DL (0.1-1.0); BLOOD UREA NITROGEN 14 MG/DL (7-18); BUN/CREATININE RATIO 13.9 (10.0-20.0); CALCIUM 8.3 MG/DL (8.5-10.1); CHLORIDE 102 MMOL/L (99-107); CREATININE 1.01 MG/DL (0.60-1.10); GLUCOSE 112 MG/DL (70-104); LIPASE 55 U/L (16-77); POTASSIUM 3.9 MMOL/L (3.5-5.1); SODIUM 136 MMOL/L (135-145); TOTAL CARBON DIOXIDE 24.2 MMOL/L (24-32); TOTAL PROTEIN 7.6 G/DL (6.4-8.2); eCRCL 107 ML/MIN; eGFR 80 ML/MIN
[2023-07-30 01:11] LABS: BILIRUBIN,URINE NEGATIVE (Neg); CLARITY,URINE CLEAR (Clear); COLOR,URINE YELLOW (Yellow); GLUCOSE, URINE NEGATIVE (Neg); KETONES,URINE NEGATIVE (Neg); LEUKOCYTE ESTERASE ,URINE NEGATIVE (Neg); NITRITES, URINE NEGATIVE (Neg); OCCULT BLOOD,URINE NEGATIVE (Neg); PH,URINE 6.5 (4.8-8.0); PROTEIN,URINE NEGATIVE (Neg); UROBILINOGEN,URINE 0.2 E.U/dL (0.2-1.0)
[2023-07-30 01:19] LABS: UA COLLECTION TYPE CLN CATCH MIDSTREAM
[2023-07-30] MEDS ORDERED: ketorolac trometh. 30mg/ml inj. IV ONE (01:50)
[2023-07-30] MEDS: ketorolac tromethamine 15mg/ml inj. IV ONE (02:06)
[2023-07-30] MEDS: ondansetron/PF 4mg/2ml inj IV ONE (02:06)
[2023-07-30] MEDS: normal saline 1000ml 1,000 ML IV ONE ×2 (02:07→03:08)
[2023-07-30] MEDS: gabapentin 400mg capsule PO ONE (02:08)
[2023-07-30] MEDS: dicyclomine 10 MG capsule PO ONE (02:08)
[2023-07-30] MEDS: morphine 4 MG/ML inj SYRINge IV ONE (02:24)
[2023-07-30] MEDS: acetaminophen 1,000mg/100ml IV 100 ML IV ONE (03:26)
[2023-07-30 04:01] VITALS: BP 122/78; PULSE 74; RESP 12; TEMP 98.7; O2SAT 97
== END 2023-07-30 04:03 | disposition home or self-care (01) ==
LOC: ER 23:47
DX: G89.29 Other chronic pain (principal); R10.13 Epigastric pain; E78.00 Pure hypercholesterolemia, unspecified; K21.9 Gastro-esophageal reflux disease without esophagitis; F12.90 Cannabis use, unspecified, uncomplicated; Z88.8 Allergy status to other drugs, medicaments and biological substances; Z79.899 Other long term (current) drug therapy; Z79.2 Long term (current) use of antibiotics
CPT/HCPCS: 36415; 80053; 81003; 83690; 85025; 96361; 96374; 96375; 99284; J1885; J2270; J2405; J7030

== ENCOUNTER 2024-04-25 11:12 | Emergency (ER) | payer MEDICAID ==
[~2024-04-25] VITALS: Ht 190.5 cm; Wt 116.2 kg
[~2024-04-25 11:12] MED LIST changes: +ONDA-243 PO; +ONDA-245 PO; -ONDA4TAB12 PO; -ONDA8TAB13 PO
[2024-04-25 11:50] LABS: BILIRUBIN,URINE NEGATIVE (Neg); CLARITY,URINE CLEAR (Clear); COLOR,URINE YELLOW (Yellow); GLUCOSE, URINE NEGATIVE (Neg); KETONES,URINE NEGATIVE (Neg); LEUKOCYTE ESTERASE ,URINE NEGATIVE (Neg); NITRITES, URINE NEGATIVE (Neg); OCCULT BLOOD,URINE NEGATIVE (Neg); PROTEIN,URINE NEGATIVE (Neg); UROBILINOGEN,URINE 0.2 E.U/dL (0.2-1.0)
[2024-04-25 11:52] LABS: BASOPHILS % (AUTO) 0.5 % (0-1); EOSINOPHILS % (AUTO) 0.4 % (0-6); HEMATOCRIT 43.2 % (42.0-52.0); LYMPHOCYTES # (AUTO) 0.7 X10'3 (1.1-4.8); LYMPHOCYTES % (AUTO) 12.6 % (21-51); MEAN CORPUSCULAR HEMOGLOBIN 30.4 PG (27.0-31.0); MEAN CORPUSCULAR HGB CONC 34.9 g/dL (33.0-36.5); MEAN CORPUSCULAR VOLUME 87.2 FL (78-98); MEAN PLATELET VOLUME 8.7 FL (7.4-10.4); MONOCYTES # (AUTO) 0.8 X10'3 (0-0.9); MONOCYTES % (AUTO) 14.6 % (2-12); NEUTROPHILS # (AUTO) 3.8 X10'3 (1.8-7.7); NEUTROPHILS % (AUTO) 71.9 % (42-75); PLATELET COUNT 166 X10'3 (140-440); RED BLOOD COUNT 4.95 X10'6 (4.70-6.10); RED CELL DISTRIBUTION WIDTH 13.7 % (11.5-14.5); WHITE BLOOD COUNT 5.3 X10'3 (4.5-11.0)
[2024-04-25 12:00] LABS: UA COLLECTION TYPE CLN CATCH MIDSTREAM
[2024-04-25 12:08] LABS: ALANINE AMINOTRANSFERASE 39 U/L (12-78); ALBUMIN/GLOBULIN RATIO 1.1 (1.1-1.5); ALKALINE PHOSPHATASE 69 IU/L (46-116); ANION GAP 9 (8-16); ASPARTATE AMINO TRANSFERASE 31 U/L (10-37); BILIRUBIN,TOTAL 0.7 MG/DL (0.1-1.0); BLOOD UREA NITROGEN 10 MG/DL (7-18); BUN/CREATININE RATIO 9.5 (10.0-20.0); CALCIUM 8.4 MG/DL (8.5-10.1); CHLORIDE 100 MMOL/L (99-107); CREATININE 1.05 MG/DL (0.60-1.10); GLUCOSE 146 MG/DL (70-104); LIPASE 51 U/L (16-77); POTASSIUM 4.1 MMOL/L (3.5-5.1); SODIUM 130 MMOL/L (135-145); TOTAL CARBON DIOXIDE 20.8 MMOL/L (24-32); TOTAL PROTEIN 7.7 G/DL (6.4-8.2); eCRCL 105 ML/MIN; eGFR 76 ML/MIN
[2024-04-25] MEDS: normal saline 1000ML IV soln IVB ONE (12:20)
[2024-04-25] MEDS: normal saline 1000ml 1,000 ML IV ONE (12:20)
[2024-04-25] MEDS: ondansetron/PF 4mg/2ml inj IV ONE (12:22)
[2024-04-25] MEDS: morphine 4 MG/ML inj SYRINge IV ONE ×2 (12:23→13:18)
[2024-04-25 12:28] LABS: APTT 28 SECONDS (22-32)
[2024-04-25] MEDS ORDERED: LIPA1CAP8 PO (12:32)
[2024-04-25 12:34] LABS: AMYLASE 19 U/L (25-115); ETHANOL < 10 MG/DL (<10); MAGNESIUM 1.7 MG/DL (1.5-2.4)
[2024-04-25] MEDS ORDERED: ONDA-243 PO (14:45)
[2024-04-25] MEDS ORDERED: OXYC-150 PO (14:45)
[2024-04-25] MEDS: morphine 2 MG/ML inj. syringe IV ONE (15:04)
[2024-04-25 15:06] VITALS: BP 135/75; PULSE 92; RESP 16; TEMP 99.5; O2SAT 99
== END 2024-04-25 15:49 | disposition home or self-care (01) ==
LOC: ER 11:12
DX: J10.1 Influenza due to other identified influenza virus with other respiratory manifestations (principal); F12.90 Cannabis use, unspecified, uncomplicated; K21.9 Gastro-esophageal reflux disease without esophagitis; E78.00 Pure hypercholesterolemia, unspecified; F41.9 Anxiety disorder, unspecified; Z88.5 Allergy status to narcotic agent; Z88.8 Allergy status to other drugs, medicaments and biological substances; Z79.899 Other long term (current) drug therapy; G89.29 Other chronic pain; Z56.0 Unemployment, unspecified; Z20.822 Contact with and (suspected) exposure to COVID-19
CPT/HCPCS: 36415; 80053; 80320; 81003; 82150; 83690; 83735; 84484; 85025; 85730; 87502; 87503; 87811; 96361; 96374; 96375; 96376; 99285; J2270; J2405; J7030

== ENCOUNTER 2024-07-06 09:43 | Emergency (ER) | payer MEDICAID ==
[~2024-07-06] VITALS: Ht 188 cm; Wt 138.9 kg
[~2024-07-06 09:43] MED LIST changes: -AMIT25TA9 PO; -DICY10CA88 PO; +LIPA1CAP8 PO; -OMEP20CA15 PO; -ONDA-245 PO; -OXYC-145 PO
[2024-07-06] MEDS: ondansetron/PF 4mg/2ml inj IV ONE (10:39)
[2024-07-06] MEDS: HYDROmorphone 1 mg/ml syringe IV ONE (10:40)
[2024-07-06] MEDS: normal saline 1000ml 1,000 ML IV ONE (10:41)
[2024-07-06 10:44] LABS: BASOPHILS % (AUTO) 0.7 % (0-1); EOSINOPHILS # (AUTO) 0.2 X10'3 (0-0.9); EOSINOPHILS % (AUTO) 2.5 % (0-6); HEMATOCRIT 48.4 % (42.0-52.0); HEMOGLOBIN 16.7 g/dl (14.0-17.9); LYMPHOCYTES # (AUTO) 1.5 X10'3 (1.1-4.8); LYMPHOCYTES % (AUTO) 21.7 % (21-51); MEAN CORPUSCULAR HEMOGLOBIN 29.7 PG (27.0-31.0); MEAN CORPUSCULAR HGB CONC 34.5 g/dL (33.0-36.5); MEAN CORPUSCULAR VOLUME 86.1 FL (78-98); MEAN PLATELET VOLUME 8.7 FL (7.4-10.4); MONOCYTES # (AUTO) 0.6 X10'3 (0-0.9); MONOCYTES % (AUTO) 8.1 % (2-12); NEUTROPHILS # (AUTO) 4.6 X10'3 (1.8-7.7); PLATELET COUNT 201 X10'3 (140-440); RED BLOOD COUNT 5.62 X10'6 (4.70-6.10); RED CELL DISTRIBUTION WIDTH 13.6 % (11.5-14.5); WHITE BLOOD COUNT 6.9 X10'3 (4.5-11.0)
[2024-07-06 11:03] LABS: ALANINE AMINOTRANSFERASE 35 U/L (12-78); ALBUMIN 3.9 G/DL (3.4-5.0); ALBUMIN/GLOBULIN RATIO 1.3 (1.1-1.5); ALKALINE PHOSPHATASE 64 IU/L (46-116); ANION GAP 8 (8-16); ASPARTATE AMINO TRANSFERASE 19 U/L (10-37); BILIRUBIN,TOTAL 0.4 MG/DL (0.1-1.0); BLOOD UREA NITROGEN 10 MG/DL (7-18); CALCIUM 8.4 MG/DL (8.5-10.1); CHLORIDE 106 MMOL/L (99-107); CREATININE 0.91 MG/DL (0.60-1.10); GLUCOSE 150 MG/DL (70-104); LIPASE 75 U/L (16-77); POTASSIUM 4.1 MMOL/L (3.5-5.1); SODIUM 139 MMOL/L (135-145); TOTAL CARBON DIOXIDE 25.2 MMOL/L (24-32); eCRCL 118 ML/MIN; eGFR 90 ML/MIN
[2024-07-06] MEDS: morphine 4 MG/ML inj SYRINge IV ONE ×2 (11:29→13:41)
[2024-07-06 12:36] LABS: BILIRUBIN,URINE NEGATIVE (Neg); CLARITY,URINE CLEAR (Clear); COLOR,URINE YELLOW (Yellow); GLUCOSE, URINE NEGATIVE (Neg); KETONES,URINE NEGATIVE (Neg); LEUKOCYTE ESTERASE ,URINE NEGATIVE (Neg); NITRITES, URINE NEGATIVE (Neg); OCCULT BLOOD,URINE NEGATIVE (Neg); PROTEIN,URINE NEGATIVE (Neg); UROBILINOGEN,URINE 0.2 E.U/dL (0.2-1.0)
[2024-07-06 12:51] LABS: UA COLLECTION TYPE CLN CATCH MIDSTREAM
[2024-07-06] MEDS ORDERED: HYDR-3972 PO (13:25)
[2024-07-06 13:43] VITALS: BP 136/98; PULSE 86; RESP 18; TEMP 98; O2SAT 99
== END 2024-07-06 13:46 | disposition home or self-care (01) ==
LOC: ER 09:44
DX: K86.1 Other chronic pancreatitis (principal); K85.90 Acute pancreatitis without necrosis or infection, unspecified; E78.00 Pure hypercholesterolemia, unspecified; F41.9 Anxiety disorder, unspecified; F12.90 Cannabis use, unspecified, uncomplicated; Z88.5 Allergy status to narcotic agent
CPT/HCPCS: 36415; 80053; 81003; 83690; 85025; 96361; 96374; 96375; 96376; 99284; J1171; J2270; J2405; J7030